=== PATIENT | female | born 1950 | race Caucasian/White ===

== ENCOUNTER 2017-12-23 12:46 | Inpatient (IN) ==
--- NOTE | 2017-12-23 14:37 | XRay Report ---
INDICATION: Altered level of consciousness. Weakness. TECHNIQUE: AP chest x-ray, portable semiupright COMPARISON: 06/15/2016 FINDINGS: Lungs are negative. No focal pulmonary parenchymal infiltrate or mass. Heart size and vascularity are normal. No pulmonary edema. No pulmonary congestion. Kimber and mediastinum are negative. No pleural fluid. IMPRESSION: Negative AP chest x-ray Interpreted and Authenticated by: Jeremías Sheth 12/23/17
--- NOTE | 2017-12-23 14:40 | Cat Scan Report ---
CLINICAL INFORMATION: Decreased level of consciousness COMPARISON: 07/24/2011 TECHNIQUE: Axial noncontrast-enhanced images through the brain. FINDINGS: No acute intracranial hemorrhage. No subdural hematoma. No subarachnoid hemorrhage. No intra-axial hemorrhage. No focal intra-axial attenuation abnormalities. No localized mass effect. No midline shift. Brain volume is within normal limits. Brainstem and cerebellum are negative. No extra-axial abnormality. Basilar cisterns are normal. No hyperdense middle cerebral artery sign. No calvarial fracture. No lytic lesion. Temporal bones are negative IMPRESSION: Negative noncontrast enhanced brain CT scan. The exam was performed using radiation dose optimization techniques including, but not limited to, automated exposure control, adjustment of the mA and/or kV according to patient size and use of iterative reconstruction technique. Interpreted and Authenticated by: Jeremías Sheth 12/23/17
[2017-12-23 15:00] LABS: Basophils # (Auto) 0.1 K/mcL (0.0-0.3); Basophils % (Auto) 0.6 % (0.0-2.0); Eosinophils # (Auto) 0.7 K/mcL (0.0-0.7); Eosinophils % (Auto) 5.3 % (0.0-7.0); Granulocytes % (Auto) 66.5 % (38.0-78.0); Lymphocytes # (Auto) 2.4 K/mcL (1.5-4.8); Lymphocytes % (Auto) 19.6 % (15.5-49.0); Mean Cell Volume 91.8 fL (80.0-100.0); Mean Corpuscular HGB Conc 33.2 g/dL (31.0-36.0); Mean Corpuscular Hemoglobin 30.5 pg (26.0-34.0); Platelet Count 177 K/mcL (140-440); RBC 4.36 M/mcL (4.00-5.20); Red Cell Distribution Width 13.8 % (11.5-14.5)
[2017-12-23 15:15] LABS: ALT/SGPT 10 U/l (0-40); Albumin/Globulin Ratio 1.3 (1.0-2.3); Alkaline Phosphatase 177 U/L (39-117); Blood Urea Nitrogen 32 mg/dl (8-23)
[2017-12-23] MEDS: 0.9 % SODIUM CHLORIDE 1,000 ML IV SCH ×2 (15:35→23:38)
[2017-12-23 15:40] LABS: Appearance,Urine HAZY; Bacteria,Urine FEW /hpf (0); Bilirubin,Urine NEG (NEG); Color,Urine YELLOW; Glucose,Urine (UA) NEGATIVE (NEG); Leukocyte Esterase,Urine 2+ (MODERATE) /uL (NEG); Mucus,Urine MOD /hpf (0); PH,Urine 8.5 (5.0-9.0); Protein,Urine 100 mg/dL (NEG); Specific Gravity,Urine 1.017 (1.000-1.035); Urine Amorphous Crystals MOD /hpf (0); Urine Blood 1+ (SMALL) mg/dL (<0.03); Urine RBC 2 /hpf (0-1); Urine Squamous Epithelial Cell 1 /hpf (0-4); Urine WBC 10 /hpf (0-4); Urobilinogen,Urine NEG (NEG)
[2017-12-23] MEDS ORDERED: CIPROFLOXACIN 400 MG/200 ML BAG IV ONE (15:54)
[2017-12-23] MEDS ORDERED: ERTAPENEM 1 GM in 0.9 % SODIUM CHLORIDE 50 ML IV ONE (16:18)
[2017-12-23] MEDS ORDERED: ERTAPENEM 0.5 GM in 0.9 % SODIUM CHLORIDE 50 ML IV ONE (16:27)
[2017-12-23] MEDS ORDERED: HYDROcodone/APAP 5/325MG TABLET PO ONE (16:30)
--- NOTE | 2017-12-23 17:03 | Internal Med History&Physical ---
Medical - H&P: HPI Patient information: Note initiated : 12/23/17 at 5:00 pm Service Date, if different from initiated Date: [] Patient: Anita Casas a 67 y/o F admitted on for Not Feeling Well. Chief Complaint: [] History of present illness: Ms. 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 She felt very weak in her legs although is able to walk. Also complains of headache fever chills nausea she has some sharp abdominal wall shooting pain throughout her abdomen. Her suprapubic catheter site was examined in the ER with some purulence around his replaced. She has chronic shortness of breath denies new cough. Denies diarrhea but has some constipation. Did have some in her symptoms in the ED. Review of systems: Review of Systems: Reports headache fever chills nausea sharp abdominal pain. denies vomiting/chest pain/cough/dyspnea/diarrhea. Otherwise see above. Medical - H&P: PMH Surgical history: Past Surgical History (Last Reviewed 12/03/17 @ 16:06 by ANAM Wynn) History of resection of rectum (Chronic) History of repair of right rotator cuff (Chronic) History of open reduction and internal fixation (ORIF) procedure (Chronic) History of knee replacement procedure of right knee (Chronic) History of knee replacement procedure of left knee (Chronic) History of hysterectomy (Chronic) History of repair of inguinal hernia (Chronic) History of hernia surgery (Chronic) History of surgical removal of ganglion cyst (Chronic) History of biopsy (Chronic) History of appendectomy (Chronic) History of surgery (Acute) History of cholecystectomy (Chronic) History of suprapubic catheter (Chronic 07/28/15) Family History (Last Reviewed 12/03/17 @ 16:06 by ANAM Wynn) Father Family history of malignant neoplasm Mother Essential hypertension Cerebrovascular accident Unknown Lymphoma Multiple sclerosis Osteoarthritis Social History Patient quit smoking 6 years ago Denies alcohol use 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5 mg base)/3 mL nebulization soln Levothyroxine Sodium [Synthroid] 175 mcg PO QDAY 05/28/16 12/03/17 History oxyCODONE/APAP [Percocet 5-325 mg] 1 tab PO Q4H PRN #30 tab 06/01/16 12/03/17 Rx calcium citrate-vitamin D3 315 1 tab PO TID 30 Days #90 tab 08/17/16 12/03/17 Rx mg-200 unit tablet aspirin 81 mg tablet,delayed 81 mg PO QDAY 09/27/16 12/03/17 History release albuterol sulfate HFA 90 2 puff INHALATION Q6H 03/27/17 12/03/17 History mcg/actuation aerosol inhaler potassium chloride ER 10 mEq 10 meq PO QDAY #30 cap 04/16/17 12/03/17 Rx capsule,extended release latex free extension tubing 1 appful MISC PRN 06/21/17 12/03/17 History fluticasone 200 mcg-vilanterol 25 1 inh INHALATION QDAY #180 each 08/14/1712/03 Rx mcg/dose powder for inhalation umeclidinium 62.5 mcg/actuation 1 inh INHALATION QDAY #90 each 08/14/17 Rx blister powder for inhalation vitamin B complex-vitamin C-folic 1 tab-cap PO QDAY #30 tab 10/07/17 12/03/17 Rx acid 0.8 mg tablet furosemide 40 mg tablet 40 mg PO QDAY #90 tab 10/21/17 12/03/17 Rx baclofen 20 mg tablet 10 mg PO TID 11/05/17 12/03/17 History Ondansetron HCl [Zofran ODT] 4 mg SL Q4-6HP PRN #14 tab 12/18/17 Rx omeprazole 40 mg capsule,delayed 40 mg PO DAILY #30 cap 12/18/17 Rx release ondansetron HCl 4 mg tablet 4 mg PO TID PRN 10 Days #30 tab 12/18/17 Rx Allergies Allergy/AdvReac Type Severity Reaction Status Date / Time cephalexin Allergy Unknown Rash Verified 12/23/17 13:02 Cephalosporins Allergy Unknown Rash Verified 12/18/17 11:17 Sulfa (Sulfonamide Allergy Unknown Rash Verified 12/18/17 11:17 Antibiotics) Medical - H&P: Exam - Constitutional Vitals: Temp Pulse Resp BP Pulse Ox 98.2 F 84 31 H 100/60 100 12/23/17 12:50 12/23/17 16:31 12/23/17 16:31 12/23/17 16:31 12/23/17 16:31 Exam: General: Alert, Awake, No acute Distress HEENT: EOMI, normocephalic atraumatic CV: RRR, No murmurs, normal s1/s2 Pulm: Clear b/l, no wheezing/rhonchi/rales Abd: soft, nontender, +BS x4, obese Ext: no clubbing/cyanosis/edema Neuro: Alert, no focal deficits, moves all extremities Skin: warm/dry Medical - H&P: Reslt - Labs CBC & Chem 7: 12/23/17 14:15 12/23/17 14:15 Labs: Short CBC 12/23/17 Range/Units 14:15 WBC 12.4 H (4.5-11.0) K/mcL Hgb 13.3 (12.0-15.0) g/dL Hct 40.0 (36.0-48.0) % Plt Count 177 (140-440) K/mcL BMP 12/23/17 14:15 Sodium 140 Potassium 5.1 Chloride 103 Carbon Dioxide 20 L BUN 32 H Creatinine 2.8 H Glucose 80 Calcium 9.3 Liver Function 12/23/17 Range/Units 14:15 Total Bilirubin 0.5 (0.0-1.0) mg/dL AST 17 (0-37) U/l ALT 10 (0-40) U/l Alkaline Phosphatase 177 H (39-117) U/L Albumin 4.0 (3.2-5.2) gm/dL Urine 12/23/17 Range/Units 14:37 Urine Color Yellow Urine Appearance Hazy Urine pH 8.5 (5.0-9.0) Ur Specific [place] 1.017 (1.000-1.035) Urine Protein 100 A (NEG) mg/dL Urine Glucose (UA) Negative (NEG) mg/dL Medical - H&P: A/P - Narrative A/P Narrative: A: *UTI, complicated by suprapubic catheter: Multidrug-resistant organism. *Metabolic encephalopathy: Secondary to above *End-stage renal disease: *Chronic anemia *Morbid obesity *COPD(2 L at night and occasionally as needed during the day): *Hypertension: *Hypothyroidism *Anxiety *suprapubic catheter chronic, neurogenic bladder: P: -IV antibiotics -Pending blood and urine cultures -Dr. Seay following -Suprapubic catheter replaced -Continue home medications -ppx: Heparin
--- NOTE | 2017-12-23 17:48 | Cat Scan Report ---
CLINICAL INFORMATION: Abdominal pain COMPARISON: Previous CT scan dated 02/19/[address] [facility] TECHNIQUE: Axial images were obtained through the abdomen and pelvis. Sagittally and coronally reformatted images. FINDINGS: Lung bases are negative. No parenchymal infiltrate or mass. No pleural fluid. No pericardial fluid. Distal esophagus is dilated and contains fluid and semisolid material. Findings may be secondary to achalasia. Liver is negative. No focal intrahepatic abnormality. No dilated bile ducts. Gallbladder is not identified. Spleen is negative. No splenomegaly. Pancreas is negative. No pancreatic mass. No evidence for pancreatitis. Adrenal glands are negative. Kidneys are atrophic bilaterally. No hydronephrosis. No solid or cystic mass. There is distal descending and sigmoid colon diverticulosis. No evidence for diverticulitis. No colonic mass. No findings of appendicitis. Rectal prolapse is possible. The caudal aspects of the perineum are not imaged There is a suprapubic bladder catheter. Uterus is not present. No adnexal mass. No free intraperitoneal fluid. No localized fluid collections. No pneumoperitoneum. There is a small umbilical hernia containing only fat. Hernia defect measures 2.2 cm. There is a right para midline abdominal wall hernia. This hernia defect measures 3.1 x 3.5 cm. There is small bowel within this hernia defect. There is an anastomotic suture line within the small bowel in the hernia defect. No mechanical small bowel obstruction. There is no fluid within the hernia defect. There is no extraluminal air. Bowel ischemia, however, is not excluded. There is a left lumbar hernia. There is colon protruding into this hernia but there is no obstruction. The right para umbilical anterior abdominal wall hernia is new since 02/19/2016. There is calcification of the abdominal aorta. No abdominal aortic aneurysm. Multilevel degenerative disc disease in the lumbar spine. There is severe facet arthropathy at L4-5 with anterolisthesis. No sacral fracture. No pelvic fracture. Hips are negative. IMPRESSION: 1. Dilated esophagus suggests achalasia 2. Left lumbar hernia and small umbilical hernia, unchanged. There is a right paraumbilical hernia containing small bowel with an anastomosis. There is no bowel obstruction but ischemia is not excluded. 3. Diverticulosis without evidence for diverticulitis 4. Suprapubic bladder catheter. 5. Degenerative disc disease and facet arthropathy. The exam was performed using radiation dose optimization techniques including, but not limited to, automated exposure control, adjustment of the mA and/or kV according to patient size and use of iterative reconstruction technique. Interpreted and Authenticated by: Jeremías Sheth 12/23/17
--- NOTE | 2017-12-23 18:21 | Emergency Department Note ---
General Adult HPI - General Chief complaint: Dizziness Stated complaint: not feeling well Time Seen by Provider: 12/23/17 13:28 Source: patient Mode of arrival: ambulatory Limitations: physical limitation - History of Present Illness HPI Narrative: 67-year-old female presents with just not feeling right. At about 11:00 she had a hard time thinking and getting her words out. States her mind is not right. She is tearful. Denies any thoughts of harming herself but states she is just frustrated because she does not feel well. Describes body aches for the last 2 days. Positive chills, unknown fever. Positive nausea. No vomiting or diarrhea. Does notice purulent drainage from suprapubic catheter. She was diagnosed with UTI couple days ago and has had 1 dose of Invanz yesterday. - Related Data Home Medications Medication Instructions Recorded Confirmed Montelukast [Singular] 10 mg PO ONCE 04/12/15 12/03/17 lactobacillus combination no.8 3 3,000 mmu cells PO QDAY 05/25/15 12/03/17 billion cell capsule alprazolam 0.5 mg tablet 0.5 mg PO .qd tab 08/23/15 12/03/17 Levothyroxine Sodium [Synthroid] 175 mcg PO QDAY 05/28/16 12/03/17 aspirin 81 mg tablet,delayed 81 mg PO QDAY 09/27/16 12/03/17 release albuterol sulfate HFA 90 2 puff INHALATION Q6H 03/27/17 12/03/17 mcg/actuation aerosol inhaler latex free extension tubing 1 appful MISC PRN 06/21/17 12/03/17 baclofen 20 mg tablet 10 mg PO TID 11/05/17 12/03/17 Previous Rx's Medication Instructions Recorded cholecalciferol (vitamin D3) 2,000 2,000 unit PO QDAY #90 cap 08/02/15 unit capsule midodrine 5 mg tablet 2.5 mg PO TID PRN 30 Days #45 tab 05/08/16 ipratropium-albuterol 0.5 mg-3 3 ml INHALATION Q4H #120 ml 05/23/16 mg(2.5 mg base)/3 mL nebulization soln oxyCODONE/APAP [Percocet 5-325 mg] 1 tab PO Q4H PRN #30 tab 06/01/16 calcium citrate-vitamin D3 315 1 tab PO TID 30 Days #90 tab 08/17/16 mg-200 unit tablet potassium chloride ER 10 mEq 10 meq PO QDAY #30 cap 04/16/17 capsule,extended release fluticasone 200 mcg-vilanterol 25 1 inh INHALATION QDAY #180 each 08/14/17 mcg/dose powder for inhalation umeclidinium 62.5 mcg/actuation 1 inh INHALATION QDAY #90 each 08/14/17 blister powder for inhalation vitamin B complex-vitamin C-folic 1 tab-cap PO QDAY #30 tab 10/07/17 acid 0.8 mg tablet furosemide 40 mg tablet 40 mg PO QDAY #90 tab 10/21/17 Ondansetron HCl [Zofran ODT] 4 mg SL Q4-6HP PRN #14 tab 12/18/17 omeprazole 40 mg capsule,delayed 40 mg PO DAILY #30 cap 12/18/17 release ondansetron HCl 4 mg tablet 4 mg PO TID PRN 10 Days #30 tab 12/18/17 Allergies Allergy/AdvReac Type Severity Reaction Status Date / Time cephalexin Allergy Unknown Rash Verified 12/23/17 13:02 Cephalosporins Allergy Unknown Rash Verified 12/18/17 11:17 Sulfa (Sulfonamide Allergy Unknown Rash Verified 12/18/17 11:17 Antibiotics) Review of Systems All systems ED: reviewed and negative except as stated. 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) Weakness (Chronic) Osteopetrosis (Chronic) AV fistula (Chronic) Dependence on renal dialysis (Chronic) ESRD (end stage renal disease) (Chronic) DM renal manif type II (Chronic) Hypertension (Chronic) Diarrhea (Chronic) SOB (shortness of breath) (Chronic) Acute exacerbation of chronic obstructive airways disease (Acute) Community acquired pneumonia (Acute) Atypical chest pain (Acute) Hyperparathyroidism due to renal insufficiency (Chronic) CKD (chronic kidney disease), stage V (Chronic) On renal disease diet (Chronic) Cystitis (Chronic) Complicated UTI (urinary tract infection) (Chronic) Secondary hyperparathyroidism of renal origin (Chronic) Asthma (Chronic) Lumbar spinal stenosis (Chronic) Sacral foraminal stenosis (Chronic) Hernia, hiatal (Chronic) Esophageal stricture (Chronic) Adult onset hypothyroidism (Chronic) UTI (urinary tract infection) (Chronic) COPD exacerbation (Chronic) Nausea & vomiting (Chronic) Acute renal failure (Chronic) Dehydration (Chronic) UTI (urinary tract infection) (Chronic) COPD exacerbation (Chronic) Wrist fracture, closed (Chronic) Urinary incontinence (Chronic) Trigonitis (Chronic 04/16/13) Localized superficial swelling, mass, or lump (Chronic 08/16/14) Spinal stenosis of lumbar region without neurogenic claudication (Chronic) Shoulder pain (Chronic 08/16/14) Shoulder pain (Chronic 06/02/14) Rectal prolapse (Chronic) Peripheral vascular disease (Chronic) Osteoarthritis (Chronic) Obstructive chronic bronchitis with acute bronchitis (Chronic 05/20/14) Postmenopausal related mood disorder (Chronic) Hypothyroidism (acquired) (Chronic) Hypertension, essential (Chronic 05/20/14) Gastroenteritis (Chronic 05/20/14) Dysphagia (Chronic) Diabetes mellitus, type II (Chronic) Cough (Chronic) History of colonic polyps (Chronic) Chronic obstructive pulmonary disease (Chronic) Chronic low back pain (Chronic 05/20/14) Cellulitis, leg (Chronic 08/16/14) Bladder pain (Chronic 03/26/13) Fracture of ankle, closed (Chronic) Anemia (Chronic 06/02/14) Anemia (Chronic 08/16/14) Past Surgical History (Last Reviewed 12/03/17 @ 16:06 by ANAM Wynn) History of resection of rectum (Chronic) History of repair of right rotator cuff (Chronic) History of open reduction and internal fixation (ORIF) procedure (Chronic) History of knee replacement procedure of right knee (Chronic) History of knee replacement procedure of left knee (Chronic) History of hysterectomy (Chronic) History of repair of inguinal hernia (Chronic) History of hernia surgery (Chronic) History of surgical removal of ganglion cyst (Chronic) History of biopsy (Chronic) History of appendectomy (Chronic) History of surgery (Acute) History of cholecystectomy (Chronic) History of suprapubic catheter (Chronic 07/28/15) Medical history: Reports: COPD, dementia, hypertension, renal disease (is a diALYSIS PATIENT) 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 Absent: conjunctival injection ENT: normal exam, normal oropharynx, mucous membranes moist, TM's normal bilaterally, normal external ear exam Neck: Present: normal inspection, trachea midline. Absent: tenderness, lymphadenopathy Chest: Present: normal inspection, symmetric chest wall rise Respiratory: Present: wheezes (Faint expiratory wheeze in the bases bilaterally otherwise clear throughout). Absent: respiratory distress, accessory muscle use Cardiovascular: Present: regular rate, normal heart sounds Abdominal: Present: soft, normal bowel sounds, other (Suprapubic catheter in place but was pulled out when patient pulled her depends down and purulent drainage expelled from the suprapubic site.). Absent: distention, tenderness External: Present: other (Please see urinalysis) Extremities: Present: normal inspection, pedal edema (1+) Neurological: Present: alert, oriented X3 Psychiatric: Present: depressed (tearful "I just don't feel good"). Absent: suicidal ideation Skin: Present: warm, dry, intact, normal color Course Course Narrative: @ 1630 Dr. Seay her seeing pt At 1745 I did speak with hospitalist, Dr. Moreno who agrees to see the patient. Vital Signs Temperature 98.2 F 12/23/17 12:50 Respiratory Rate 20 12/23/17 12:50 Blood Pressure 119/62 12/23/17 12:50 Pulse Oximetry (%) 96 12/23/17 12:50 Temperature 98.2 F 12/23/17 12:50 Pulse Rate 63 12/23/17 17:46 Respiratory Rate 25 H 12/23/17 17:46 Blood Pressure 122/79 12/23/17 17:46 Pulse Oximetry (%) 83 L 12/23/17 17:46 Medical Decision Making - Lab Data Lab results reviewed: Yes I reviewed the patient's lab results. Result diagrams: 12/23/17 14:15 12/23/17 14:15 Lab Results 12/23/17 12/23/17 12/23/17 Range/Units 14:15 14:15 14:15 WBC 12.4 H (4.5-11.0) K/mcL RBC 4.36 (4.00-5.20) M/mcL Hgb 13.3 (12.0-15.0) g/dL Hct 40.0 (36.0-48.0) % MCV 91.8 (80.0-100.0) fL MCH 30.5 (26.0-34.0) pg MCHC 33.2 (31.0-36.0) g/dL RDW 13.8 (11.5-14.5) % Plt Count 177 (140-440) K/mcL MPV 10.2 (7.4-10.4) fL Gran % 66.5 (38.0-78.0) % Lymph % (Auto) 19.6 (15.5-49.0) % Towns % (Auto) 8.0 (1.0-12.0) % Eos % (Auto) 5.3 (0.0-7.0) % Baso % (Auto) 0.6 (0.0-2.0) % Gran # 8.2 H (1.8-8.0) K/mcL Lymph # (Auto) 2.4 (1.5-4.8) K/mcL [place] # (Auto) 1.0 H (0.1-0.9) K/mcL Eos # (Auto) 0.7 (0.0-0.7) K/mcL Baso # (Auto) 0.1 (0.0-0.3) K/mcL VBG Lactic Acid 0.7 (0.5-2.2) mmol/L Sodium 140 (133-145) mmol/L Potassium 5.1 (3.3-5.1) mmol/L Chloride 103 (96-108) mmol/L Carbon Dioxide 20 L (22-30) mmol/L Anion Gap 17.0 H (8-16) BUN 32 H (8-23) mg/dl Creatinine 2.8 H (0.6-1.1) mg/dl GFR Calculation 17 Glucose 80 (70-105) mg/dL Calcium 9.3 (8.6-10.4) mg/dl Total Bilirubin 0.5 (0.0-1.0) mg/dL AST 17 (0-37) U/l ALT 10 (0-40) U/l Alkaline Phosphatase 177 H (39-117) U/L Total Protein 7.2 (5.9-8.4) gm/dL Albumin 4.0 (3.2-5.2) gm/dL Globulin 3.2 (2.2-3.7) gm/dL Albumin/Globulin Ratio 1.3 (1.0-2.3) Urine Color Urine Appearance Urine pH (5.0-9.0) Ur Specific [place] (1.000-1.035) Urine Protein (NEG) mg/dL Urine Glucose (UA) (NEG) mg/dL Urine Ketones (NEG) mg/dL Urine Occult Blood (<0.03) mg/dL Urine Nitrate (NEG) Urine Bilirubin (NEG) mg/dL Urine Urobilinogen (NEG) mg/dL Ur Leukocyte Esterase (NEG) /uL Urine RBC (0-1) /hpf Urine WBC (0-4) /hpf Ur Squamous Epith Cells (0-4) /hpf Amorphous Crystals (0) /hpf Urine Bacteria (0) /hpf Urine Mucus (0) /hpf Ur Culture Indicated? 12/23/17 Range/Units 14:37 WBC (4.5-11.0) K/mcL RBC (4.00-5.20) M/mcL Hgb (12.0-15.0) g/dL Hct (36.0-48.0) % MCV (80.0-100.0) fL MCH (26.0-34.0) pg MCHC (31.0-36.0) g/dL RDW (11.5-14.5) % Plt Count (140-440) K/mcL MPV (7.4-10.4) fL Gran % (38.0-78.0) % Lymph % (Auto) (15.5-49.0) % [place] % (Auto) (1.0-12.0) % Eos % (Auto) (0.0-7.0) % Baso % (Auto) (0.0-2.0) % Gran # (1.8-8.0) K/mcL Lymph # (Auto) (1.5-4.8) K/mcL [place] # (Auto) (0.1-0.9) K/mcL Eos # (Auto) (0.0-0.7) K/mcL Baso # (Auto) (0.0-0.3) K/mcL VBG Lactic Acid (0.5-2.2) mmol/L Sodium (133-145) mmol/L Potassium (3.3-5.1) mmol/L Chloride (96-108) mmol/L Carbon Dioxide (22-30) mmol/L Anion Gap (8-16) BUN (8-23) mg/dl Creatinine (0.6-1.1) mg/dl GFR Calculation Glucose (70-105) mg/dL Calcium (8.6-10.4) mg/dl Total Bilirubin (0.0-1.0) mg/dL AST (0-37) U/l ALT (0-40) U/l Alkaline Phosphatase (39-117) U/L Total Protein (5.9-8.4) gm/dL Albumin (3.2-5.2) gm/dL Globulin (2.2-3.7) gm/dL Albumin/Globulin Ratio (1.0-2.3) Urine Color Yellow Urine Appearance Hazy Urine pH 8.5 (5.0-9.0) Ur Specific [place] 1.017 (1.000-1.035) Urine Protein 100 A (NEG) mg/dL Urine Glucose (UA) Negative (NEG) mg/dL Urine Ketones Neg (NEG) mg/dL Urine Occult Blood 1+ (small) (<0.03) mg/dL Urine Nitrate Pos A (NEG) Urine Bilirubin Neg (NEG) mg/dL Urine Urobilinogen Neg (NEG) mg/dL Ur Leukocyte Esterase 2+ (moderate) (NEG) /uL Urine RBC 2 H (0-1) /hpf Urine WBC 10 H (0-4) /hpf Ur Squamous Epith Cells 1 (0-4) /hpf Amorphous Crystals Mod A (0) /hpf Urine Bacteria Few A (0) /hpf Urine Mucus Mod (0) /hpf Ur Culture Indicated? Yes - Radiology Data Radiology results reviewed: Yes I reviewed the patient's radiology results. 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
[2017-12-23] MEDS ORDERED: ONDANSETRON 4 MG/2 ML VIAL IV PRN (19:35)
[2017-12-23] MEDS ORDERED: ACETAMINOPHEN 325 MG TABLET PO PRN (19:35)
[2017-12-23] MEDS: IPRATROPIUM/ALBUTEROL 3 ML AMPUL.NEB NEB SCH (19:47)
[2017-12-23] MEDS ORDERED: IPRATROPIUM/ALBUTEROL 3 ML AMPUL.NEB NEB ONE (19:48)
--- NOTE | 2017-12-23 20:20 | Nephrology Consult Note ---
History of Present Illness - Reason for Consult Patient information: Note initiated : 12/23/17 at 8:17 pm Service Date, if different from initiated Date: [] Patient: Anita Casas 67 y/o F admitted on 12/23/17 for Not Feeling Well. 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 She then started feeling better. Her urine culture showed multi drug resistant UTI and she was started on ertapenem for this yesterday. 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 (neurogenic bladder) secondary hyperparathyroidism COPD rectal prolapse failed multiple surgeries h/o MSSA PNA/resp failure hypothyroidism lumbar spinal stenosis esophageal stricture recurrent UTI Past surgical history: History of cholecystectomy Chronic History of surgery Acute History of suprapubic catheter Chronic 07/28/15 History of resection of rectum Chronic History of repair of right rotator cuff Chronic History of open reduction and internal fixation (ORIF) procedure Chronic History of knee replacement procedure of right knee Chronic History of knee replacement procedure of left knee Chronic History of hysterectomy Chronic History of repair of inguinal hernia Chronic History of hernia surgery Chronic History of surgical removal of ganglion cyst Chronic History of biopsy Chronic History of appendectom Past family history: not pertinent Past social history: Lives alone, has daughter and son retired past smoker and used alcohol in the past, no current addictions Medications and Allergies Home Medications Medication Instructions Recorded Confirmed Type RX: Montelukast [Singular] 10 mg PO ONCE 04/12/15 12/03/17 History lactobacillus combination no.8 3 3,000 mmu cells PO QDAY 05/25/15 12/03/17 History billion cell capsule cholecalciferol (vitamin D3) 2,000 2,000 unit PO QDAY #90 cap 08/02/15 12/03/17 Rx unit capsule alprazolam 0.5 mg tablet 0.5 mg PO .qd tab 08/23/15 12/03/17 History midodrine 5 mg tablet 2.5 mg PO TID PRN 30 Days #45 tab 05/08/16 12/03/17 Rx ipratropium-albuterol 0.5 mg-3 3 ml INHALATION Q4H #120 ml 05/23/16 12/03/17 Rx mg(2.5 mg base)/3 mL nebulization soln RX: Levothyroxine Sodium 175 mcg PO QDAY 05/28/16 12/03/17 History [Synthroid] oxyCODONE/APAP [Percocet 5-325 mg] 1 tab PO Q4H PRN #30 tab 06/01/16 12/03/17 Rx calcium citrate-vitamin D3 315 1 tab PO TID 30 Days #90 tab 08/17/16 12/03/17 Rx mg-200 unit tablet aspirin 81 mg tablet,delayed 81 mg PO QDAY 09/27/16 12/03/17 History release albuterol sulfate HFA 90 2 puff INHALATION Q6H 03/27/17 12/23/17 History mcg/actuation aerosol inhaler potassium chloride ER 10 mEq 10 meq PO QDAY #30 cap 04/16/17 12/03/17 Rx capsule,extended release latex free extension tubing 1 appful MISC PRN 06/21/17 12/03/17 History fluticasone 200 mcg-vilanterol 25 1 inh INHALATION QDAY #180 each 08/14/1712/03 Rx mcg/dose powder for inhalation umeclidinium 62.5 mcg/actuation 1 inh INHALATION QDAY #90 each 08/14/17 Rx blister powder for inhalation vitamin B complex-vitamin C-folic 1 tab-cap PO QDAY #30 tab 10/07/17 12/03/17 Rx acid 0.8 mg tablet furosemide 40 mg tablet 40 mg PO QDAY #90 tab 10/21/17 12/03/17 Rx baclofen 20 mg tablet 10 mg PO TID 11/05/17 12/03/17 History omeprazole 40 mg capsule,delayed 40 mg PO DAILY #30 cap 12/18/17 Rx release ondansetron HCl 4 mg tablet 4 mg PO TID PRN 10 Days #30 tab 12/18/17 Rx Allergies Allergy/AdvReac Type Severity Reaction Status Date / Time cephalexin Allergy Intermediate Rash Verified 12/23/17 19:50 Cephalosporins Allergy Intermediate Rash Verified 12/23/17 19:50 Sulfa (Sulfonamide Allergy Intermediate Rash Verified 12/23/17 19:50 Antibiotics) Exam - Vital Signs Vital signs: Temp Pulse Resp BP Pulse Ox 98.2 F 87 20 116/78 95 12/23/17 19:34 12/23/17 20:02 12/23/17 20:02 12/23/17 19:34 12/23/17 20:02 - General Appearance General appearance: appears started age, chronically ill EENT: mucous membranes moist Neck: no JVD Respiratory: wheezing Cardiology: no rub, no edema, normal S1, normal S2 Gastrointestinal: no tenderness (cystostomy site with purulent discharge ), no guarding Integumentary: warm and dry Neurologic: alert and oriented x3 (but finds difficulty answering questions) Musculoskeletal: no cyanosis, no clubbing Psychiatric: mood/affect appropriate Results - Lab Results 12/23/17 14:15 12/23/17 14:15 Most recent lab results Calcium 9.3 mg/dl (8.6-10.4) 12/23/17 14:15 Assessment and Plan (1) Dependence on renal dialysis patient dialysis twice a week, due for dialysis today, labs stable, no e/o fluid excess, no urgent need for dialysis UTI with purulent discharge from supra pubic cath site, obtain abdominal imaging confusion ? from septic encephalopathy, consider admission for IV antibiotics, and monitoring of the patient will need urology opinion and supra pubic cath needs to be replaced, discussed with ER physician recurrent nausea, vomiting, CT abdomen with ? achalasia, will obtain GI opinion as outpt Will follow along appreciate hospital help in managing this patient Status: Chronic (2) Complicated UTI (urinary tract infection) Status: Chronic
[2017-12-23 21:10] LABS: Basophils # (Auto) 0.1 K/mcL (0.0-0.3); Basophils % (Auto) 0.9 % (0.0-2.0); Eosinophils # (Auto) 0.6 K/mcL (0.0-0.7); Eosinophils % (Auto) 5.3 % (0.0-7.0); Granulocytes % (Auto) 61.3 % (38.0-78.0); Lymphocytes # (Auto) 2.7 K/mcL (1.5-4.8); Lymphocytes % (Auto) 24.7 % (15.5-49.0); Mean Corpuscular HGB Conc 33.6 g/dL (31.0-36.0); Mean Corpuscular Hemoglobin 31.2 pg (26.0-34.0); Monocytes # (Auto) 0.9 K/mcL (0.1-0.9); Monocytes % (Auto) 7.8 % (1.0-12.0); Platelet Count 191 K/mcL (140-440); RBC 4.08 M/mcL (4.00-5.20); Red Cell Distribution Width 14.1 % (11.5-14.5)
[2017-12-23] MEDS: HEPARIN 5,000 UNIT/ML VIAL SQ SCH (21:57)
[2017-12-23] MEDS: FAMOTIDINE 20 MG TABLET PO SCH (21:58)
[2017-12-23] MEDS ORDERED: MIDODRINE 5 MG TABLET PO PRN (22:18)
[2017-12-23] MEDS ORDERED: ALBUTEROL SULFATE 1 PUFF INHALER INH PRN (22:30)
[2017-12-23] MEDS ORDERED: [UNRECOGNIZED DRUG - OTHER] MISC SCH (22:30)
[2017-12-23] MEDS: BACLOFEN 10 MG TABLET PO SCH (23:23)
[2017-12-23] MEDS ORDERED: HYDROCODONE/APAP 7.5/325MG TABLET PO ONE (23:26)
[2017-12-23] MEDS: ERTAPENEM 1 GM in 0.9 % SODIUM CHLORIDE 50 ML IV SCH (23:29)
[2017-12-24] MEDS: 0.9 % SODIUM CHLORIDE 10 ML SYRINGE IV SCH ×4 (00:37→20:36)
[2017-12-24] MEDS: ONDANSETRON ODT 4 MG TABLET PO PRN ×3 (02:03→20:34)
[2017-12-24] MEDS: IPRATROPIUM/ALBUTEROL 3 ML AMPUL.NEB NEB SCH ×8 (02:03→22:50)
[2017-12-24 05:48] LABS: ALT/SGPT 8 U/l (0-40); Albumin 3.3 gm/dL (3.2-5.2); Albumin/Globulin Ratio 1.1 (1.0-2.3); Alkaline Phosphatase 154 U/L (39-117); Bilirubin,Direct < 0.2 mg/dL (0.0-0.3); Blood Urea Nitrogen 31 mg/dl (8-23); Gamma Glutamyl Transpeptidase 38 U/L (5-36); Uric Acid 6.4 mg/dL (2.5-8.0)
--- NOTE | 2017-12-24 07:14 | Internal Med Progress Note ---
Medical - PN: Subj Patient information: Note initiated : 12/24/17 at 7:12 am Service Date, if different from initiated Date: [] Patient: Anita Casas 67 y/o F admitted on 12/23/17 for Not Feeling Well. Chief Complaint: [] Interval history: Ms. Dillard is a 81 year old F Who was discharged from the hospital little over week ago for acute renal failure, UTI, sepsis, microscopic colitis. She presents back today for fever, she has had some body aches, diarrhea which was worse last Saturday but that has improved some. She has no crampy abdominal pain with bloating she has chronic shortness of breath and coughing. In the ER she was noted to have a fever of 102 denies any dysuria no productive cough. There was some report of some shortness of breath but when speaking with her she states this is chronic although an ER BNP was elevated above normal. Chest x-ray with some with pulmonary congestion. 12/24 - Constitutional Vitals: Vital Signs Temp Pulse Resp BP Pulse Ox 97.6 F 69 20 116/73 94 12/24/17 02:49 12/24/17 02:49 12/24/17 02:49 12/24/17 02:49 12/24/17 02:49 Period Temp Pulse Resp BP Sys/Santizo Pulse Ox Last 24 Hr 97.6 F-98.2 F 47-98 14-31 96-133/34-89 79-100 Intake and Output 12/23/17 12/24/17 12/24/17 21:59 05:59 13:59 Intake Total 1050 / 1050 275 / 275 Output Total 525 / 525 Balance 1050 / 1050 -250 / -250 Weight 110.223 kg Intake & Output: Intake & Output 12/23/17 12/24/17 12/24/17 21:59 05:59 13:59 Intake Total 1050 / 1050 275 / 275 Output Total 525 / 525 Balance 1050 / 1050 -250 / -250 Weight 110.223 kg Intake: IV 1050 / 1050 25 / 25 Sodium Chloride 0.9% 1,000 ml @ 1000 / 1000 500 mls/hr IV .Q2H [facility] Rx#: [id number] INVanz 1 GM In Sodium Chloride 50 / 50 25 / 25 0.9% 50 ml @ 100 mls/hr IV Q24H [facility] Rx#:[id number] Oral 250 / 250 Output: Urine Catheter Amount 525 / 525 Other: Urine Appearance Clear Suprapubic Clear Urine Color Bright Yellow Suprapubic Bright Yellow Stool Size Small Stool Color Brown Stool Consistency Formed # of times incontinent of 1 Bowels Exam: General: Alert, Awake, No acute Distress HEENT: Normocephalic atraumatic, EOMI, mild JVD CV: RRR, No murmurs, normal s1/s2 Pulm: Clear b/l, no wheezing/rhonchi/rales Abd: soft, nontender, +BS x4, obese Ext: no clubbing/cyanosis, 1+ bilateral lower extremity edema Neuro: Alert, no focal deficits, moves all extremities Skin: warm/dry Medical - PN: Obj Da - Labs CBC & Chem 7: 12/23/17 19:35 12/24/17 04:28 Labs: Abnormal Lab Results 12/24/17 12/23/17 12/23/17 04:28 19:35 14:37 WBC 11.1 H Gran # [place] # (Auto) Potassium 5.2 H Chloride 111 H Carbon Dioxide 18 L Anion Gap BUN 31 H Creatinine 2.8 H GGT 38 H Alkaline Phosphatase 154 H Urine Protein 100 A Urine Nitrate Pos A Urine RBC 2 H Urine WBC 10 H Amorphous Crystals Mod A Urine Bacteria Few A 12/23/17 12/23/17 14:15 14:15 WBC 12.4 H Gran # 8.2 H [place] # (Auto) 1.0 H Potassium Chloride Carbon Dioxide 20 L Anion Gap 17.0 H BUN 32 H Creatinine 2.8 H GGT Alkaline Phosphatase 177 H Urine Protein Urine Nitrate Urine RBC Urine WBC Amorphous Crystals Urine Bacteria Meds: Medications Acetaminophen (Tylenol) 650 mg PO Q6HP PRN PRN Reason: PAIN/FEVER > 101 Hydrocodone Bitart/Acetaminophen ([place] 7.5/325mg) 1 - 2 tab PO Q4-6HP PRN PRN Reason: PAIN LEVEL 3-6 Albuterol Sulfate (Ventolin) 2 puff INH Q6HP PRN PRN Reason: Shortness Of Breath Albuterol/Ipratropium (Duoneb) 3 ml NEB Q6HRT [facility] Last Admin: 12/24/17 02:03 Dose: 3 ml Albuterol/Ipratropium (Duoneb) 3 ml NEB Q4HRT [facility] Alprazolam (Xanax) 0.5 mg PO DAILY [facility] Baclofen (Lioresal) 20 mg PO TID [facility] Last Admin: 12/23/17 23:23 Dose: 20 mg Calcium/Vitamin D (Calcium W/Vit D3) 500 mg PO TID [facility] Famotidine (Pepcid) 20 mg PO HS [facility] Last Admin: 12/23/17 21:58 Dose: 20 mg Furosemide (Lasix) 40 mg PO QDAY [facility] Heparin Sodium (Porcine) (Heparin) 5,000 unit SQ Q12 [facility] Last Admin: 12/23/17 21:57 Dose: 5,000 unit Ertapenem 1 gm/ Sodium (Chloride) 50 mls @ 100 mls/hr IV Q24H [facility] Last Infusion: 12/24/17 00:38 Dose: Infused Levothyroxine Sodium (Synthroid) 100 mcg PO ACB ERNST Levothyroxine Sodium (Synthroid) 75 mcg PO ACB [facility] Midodrine (Midodrine Hcl) 2.5 mg PO TIDP PRN PRN Reason: if BP below 100 systolic Omeprazole (Prilosec) 40 mg PO QAMAC [facility] Ondansetron HCl (Zofran) 4 mg IV Q6HP PRN PRN Reason: Nausea And Vomiting Ondansetron HCl (Zofran Odt) 4 mg PO TIDP PRN PRN Reason: nausea and vomiting Last Admin: 12/24/17 02:03 Dose: 4 mg [Breo Ellipta 200-25 (Mcg Inh) 1 dose INH QDAY [facility] Incruse Ellipta] 1 (Inh)) 1 dose INH QDAY [facility] Sodium Chloride (Saline Flush) 10 ml IV Q8 [facility] Last Admin: 12/24/17 05:23 Dose: 10 ml Vitamin D (Vitamin D3) 2,000 unit PO QDAY [facility] Medical - PN: A/P - Time Spent With Patient Total time spent is greater than 50% in coordination of care (as documented) at patient's floor/unit and/or counseling patient:
--- NOTE | 2017-12-24 07:19 | Internal Med Progress Note ---
Medical - PN: Subj Patient information: Note initiated : 12/24/17 at 7:14 am Service Date, if different from initiated Date: [] Patient: Anita Casas 67 y/o F admitted on 12/23/17 for Not Feeling Well. 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 She felt very weak in her legs although is able to walk. Also complains of headache fever chills nausea she has some sharp abdominal wall shooting pain throughout her abdomen. Her suprapubic catheter site was examined in the ER with some purulence around his replaced. She has chronic shortness of breath denies new cough. 12/24 This morning and a headache which is better and some nausea no vomiting, slept well. Admits to poor perineal hygiene. Review of Systems: denies fever/chillsvomiting/chest or abdominal pain/cough/dyspnea/diarrhea. Otherwise see above. - Constitutional Vitals: Vital Signs Temp Pulse Resp BP Pulse Ox 97.6 F 69 20 116/73 94 12/24/17 02:49 12/24/17 02:49 12/24/17 02:49 12/24/17 02:49 12/24/17 02:49 Period Temp Pulse Resp BP Sys/Santizo Pulse Ox Last 24 Hr 97.6 F-98.2 F 47-98 14-31 96-133/34-89 79-100 Intake and Output 12/23/17 12/24/17 12/24/17 21:59 05:59 13:59 Intake Total 1050 / 1050 275 / 275 Output Total 525 / 525 Balance 1050 / 1050 -250 / -250 Weight 110.223 kg Intake & Output: Intake & Output 12/23/17 12/24/17 12/24/17 21:59 05:59 13:59 Intake Total 1050 / 1050 275 / 275 Output Total 525 / 525 Balance 1050 / 1050 -250 / -250 Weight 110.223 kg Intake: IV 1050 / 1050 25 / 25 Sodium Chloride 0.9% 1,000 ml @ 1000 / 1000 500 mls/hr IV .Q2H [facility] Rx#: [id number] INVanz 1 GM In Sodium Chloride 50 / 50 25 / 25 0.9% 50 ml @ 100 mls/hr IV Q24H [facility] Rx#:[id number] Oral 250 / 250 Output: Urine Catheter Amount 525 / 525 Other: Urine Appearance Clear Suprapubic Clear Urine Color Bright Yellow Suprapubic Bright Yellow Stool Size Small Stool Color Brown Stool Consistency Formed # of times incontinent of 1 Bowels Exam: General: Alert, Awake, No acute Distress HEENT: EOMI, normocephalic atraumatic CV: RRR, 1/6 SM Pulm: Clear b/l, no wheezing/rhonchi/rales Abd: soft, nontender, +BS x4, obese Ext: no clubbing/cyanosis/edema Neuro: Alert, no focal deficits, moves all extremities Skin: warm/dry Medical - PN: Obj Da - Labs CBC & Chem 7: 12/23/17 19:35 12/24/17 04:28 Labs: Abnormal Lab Results 12/24/17 12/23/17 12/23/17 04:28 19:35 14:37 WBC 11.1 H Gran # [place] # (Auto) Potassium 5.2 H Chloride 111 H Carbon Dioxide 18 L Anion Gap BUN 31 H Creatinine 2.8 H GGT 38 H Alkaline Phosphatase 154 H Urine Protein 100 A Urine Nitrate Pos A Urine RBC 2 H Urine WBC 10 H Amorphous Crystals Mod A Urine Bacteria Few A 12/23/17 12/23/17 14:15 14:15 WBC 12.4 H Gran # 8.2 H [place] # (Auto) 1.0 H Potassium Chloride Carbon Dioxide 20 L Anion Gap 17.0 H BUN 32 H Creatinine 2.8 H GGT Alkaline Phosphatase 177 H Urine Protein Urine Nitrate Urine RBC Urine WBC Amorphous Crystals Urine Bacteria Meds: Medications Acetaminophen (Tylenol) 650 mg PO Q6HP PRN PRN Reason: PAIN/FEVER > 101 Hydrocodone Bitart/Acetaminophen ([place] 7.5/325mg) 1 - 2 tab PO Q4-6HP PRN PRN Reason: PAIN LEVEL 3-6 Albuterol Sulfate (Ventolin) 2 puff INH Q6HP PRN PRN Reason: Shortness Of Breath Albuterol/Ipratropium (Duoneb) 3 ml NEB Q6HRT [facility] Last Admin: 12/24/17 02:03 Dose: 3 ml Albuterol/Ipratropium (Duoneb) 3 ml NEB Q4HRT [facility] Alprazolam (Xanax) 0.5 mg PO DAILY [facility] Baclofen (Lioresal) 20 mg PO TID [facility] Last Admin: 12/23/17 23:23 Dose: 20 mg Calcium/Vitamin D (Calcium W/Vit D3) 500 mg PO TID [facility] Famotidine (Pepcid) 20 mg PO HS [facility] Last Admin: 12/23/17 21:58 Dose: 20 mg Furosemide (Lasix) 40 mg PO QDAY [facility] Heparin Sodium (Porcine) (Heparin) 5,000 unit SQ Q12 [facility] Last Admin: 12/23/17 21:57 Dose: 5,000 unit Ertapenem 1 gm/ Sodium (Chloride) 50 mls @ 100 mls/hr IV Q24H [facility] Last Infusion: 12/24/17 00:38 Dose: Infused Levothyroxine Sodium (Synthroid) 100 mcg PO ACB [facility] Levothyroxine Sodium (Synthroid) 75 mcg PO ACB [facility] Midodrine (Midodrine Hcl) 2.5 mg PO TIDP PRN PRN Reason: if BP below 100 systolic Omeprazole (Prilosec) 40 mg PO QAMAC [facility] Ondansetron HCl (Zofran) 4 mg IV Q6HP PRN PRN Reason: Nausea And Vomiting Ondansetron HCl (Zofran Odt) 4 mg PO TIDP PRN PRN Reason: nausea and vomiting Last Admin: 12/24/17 02:03 Dose: 4 mg [Breo Ellipta 200-25 (Mcg Inh) 1 dose INH QDAY [facility] Incruse Ellipta] 1 (Inh)) 1 dose INH QDAY [facility] Sodium Chloride (Saline Flush) 10 ml IV Q8 [facility] Last Admin: 12/24/17 05:23 Dose: 10 ml Vitamin D (Vitamin D3) 2,000 unit PO QDAY [facility] Medical - PN: A/P - Time Spent With Patient Total time spent is greater than 50% in coordination of care (as documented) at patient's floor/unit and/or counseling patient: - Narrative A/P Narrative: A: *UTI, complicated by suprapubic catheter: Multidrug-resistant organism history -CT abd/pelv no acute *Metabolic encephalopathy: Secondary to above, improved *End-stage renal disease: follows with Dr. Seay *Chronic anemia *Morbid obesity *COPD(2L at night and occasionally prn during the day): *Hypertension: *Hypothyroidism *Anxiety *suprapubic catheter chronic, neurogenic bladder: replaced in ED P: -cont IV antibiotics, ertapenem -Pending blood and urine cultures -Dr. Seay following -Suprapubic catheter replaced after discussed with madalyn in ED -f/u with GI outpt for ?achalasia -Continue home medications -ppx: Heparin
[2017-12-24] MEDS: BACLOFEN 10 MG TABLET PO SCH ×3 (08:48→20:34)
[2017-12-24] MEDS: OMEPRAZOLE 20 MG CAPSULE PO SCH (08:49)
[2017-12-24] MEDS: VITAMIN D3 1,000 UNIT TABLET PO SCH (08:49)
[2017-12-24] MEDS: CALCIUM W/VIT D3 500 MG TABLET PO SCH ×3 (08:50→20:34)
[2017-12-24] MEDS: LEVOTHYROXINE 100 MCG TABLET PO SCH (08:50)
[2017-12-24] MEDS: FUROSEMIDE 40 MG TABLET PO SCH (08:50)
[2017-12-24] MEDS: LEVOTHYROXINE 75 MCG TABLET PO SCH (08:50)
[2017-12-24] MEDS: ALPRAZolam 0.5 MG TABLET PO SCH (08:50)
[2017-12-24] MEDS: HEPARIN 5,000 UNIT/ML VIAL SQ SCH ×2 (08:51→20:33)
[2017-12-24] MEDS: HYDROCODONE/APAP 7.5/325MG TABLET PO PRN ×3 (09:17→23:32)
[2017-12-24] MEDS: ERTAPENEM 1 GM in 0.9 % SODIUM CHLORIDE 50 ML IV SCH (14:31)
--- NOTE | 2017-12-24 14:33 | Nephrology Progress Note ---
Subjective Patient information: Note initiated : 12/24/17 at 2:29 pm Service Date, if different from initiated Date: [] Patient: Anita Casas 67 y/o F admitted on 12/23/17 for Not Feeling Well/UTI. Chief Complaint: [] Principal diagnosis: UTI, confusion Interval history: Patient feels a little better mental status has improved vital signs stable no vomiting, intermittent nausea no worsening SOB, CP no edema still some discharge at supra pubic site Pertinent ROS: as above Objective - Vital Signs Vital signs: Vital Signs Temp Pulse Pulse Resp BP BP Pulse Ox 12/24/17 12:00 97.4 F 70 22 100/65 98 12/24/17 08:04 70 18 12/24/17 08:00 97.8 F 72 18 120/72 94 12/24/17 02:49 97.6 F 69 20 116/73 94 12/24/17 00:00 98.2 F 69 20 133/88 100 12/23/17 20:02 87 20 95 12/23/17 19:50 92 H 20 12/23/17 19:34 98.2 F 72 14 116/78 99 12/23/17 19:20 97.6 F 98 H 20 117/89 98 12/23/17 19:06 72 14 99 12/23/17 19:01 19 116/78 12/23/17 18:46 22 96/64 12/23/17 18:31 79 18 122/47 100 12/23/17 18:16 79 24 H 131/46 100 12/23/17 18:02 69 21 109/47 100 12/23/17 17:46 63 25 H 122/79 83 L 12/23/17 17:32 77 17 112/34 98 12/23/17 17:23 76 21 119/48 100 12/23/17 17:01 97/78 12/23/17 16:50 75 21 119/84 100 12/23/17 16:31 84 31 H 100/60 100 12/23/17 16:16 73 18 127/61 100 12/23/17 16:01 47 L 16 108/72 79 L 12/23/17 15:46 68 18 103/86 100 12/23/17 15:32 64 118/53 100 12/23/17 15:18 76 121/56 100 12/23/17 14:45 70 117/50 100 Intake and Output 12/24/17 12/24/17 12/24/17 05:59 13:59 21:59 Intake Total 275 / 275 Output Total 525 / 525 Balance -250 / -250 Intake: IV 25 / 25 INVanz 1 GM In Sodium Chloride 25 / 25 0.9% 50 ml @ 100 mls/hr IV Q24H [facility] Rx#:[id number] Oral 250 / 250 Output: Urine Catheter Amount 525 / 525 Other: Urine Appearance Clear Suprapubic Clear Urine Color Bright Yellow Suprapubic Straw Stool Size Small Stool Color Brown Stool Consistency Formed # of times incontinent of 1 Bowels Weight 243 lb Patient Weight 12/25/17 05:59 Weight 243 lb Intake & Output: Intake & Output 12/24/17 12/24/17 12/24/17 05:59 13:59 21:59 Intake Total 275 / 275 Output Total 525 / 525 Balance -250 / -250 Weight 243 lb Intake: IV 25 / 25 INVanz 1 GM In Sodium Chloride 25 / 25 0.9% 50 ml @ 100 mls/hr IV Q24H [facility] Rx#:[id number] Oral 250 / 250 Output: Urine Catheter Amount 525 / 525 Other: Urine Appearance Clear Suprapubic Clear Urine Color Bright Yellow Suprapubic Straw Stool Size Small Stool Color Brown Stool Consistency Formed # of times incontinent of 1 Bowels - General Appearance General appearance: appears started age, obese EENT: mucous membranes moist Neck: no JVD Respiratory: clear Cardiology: no rub, no edema, regular rate, regular rhythm Gastrointestinal: no tenderness, no guarding Integumentary: warm and dry Neurologic: alert and oriented x3 Musculoskeletal: no erythema, no cyanosis Psychiatric: mood/affect appropriate - Lab 12/23/17 19:35 12/24/17 04:28 Most recent lab results Calcium 8.7 mg/dl (8.6-10.4) 12/24/17 04:28 Phosphorus 3.5 mg/dL (2.7-4.5) 12/24/17 04:28 Magnesium 2.1 mg/dL (1.6-2.5) 12/24/17 04:28 Assessment and Plan (1) Dependence on renal dialysis will hold dialysis for now no acute needs mild hyperkalemia and acidosis, will add sodium bicarb supplement will follow the renal function tomorrow UTI: improving symptoms continue ertapenem possible discharge tomorrow if continues to show improvement patient will need to ensure she takes proper care of her supra pubic cathetor to prevent recurrent infection Status: Chronic (2) Complicated UTI (urinary tract infection) Status: Chronic
--- NOTE | 2017-12-24 16:31 | Discharge Summary ---
Medical - DS: Prov Patient information: Note initiated : 12/24/17 at 4:28 pm Service Date, if different from initiated Date: [] Patient: Anita Casas 67 y/o F admitted on 12/23/17 for Not Feeling Well/UTI. Chief Complaint: [] Date of admission: 12/23/17 19:18 Discharge date: 12/26/17 Primary care physician: Veronica Waterman Consults: 12/23/17 Consult to Physician [CONS] Stat Comment: Consulting Provider: Kaylene Seay Reason For Exam: Physician to Consult Consult to Physician [CONS] Stat Comment: Consulting Provider: Jose Moreno Reason For Exam: admit Medical - DS: Meds - Discharge Medications Prescriptions: Amoxicillin 500 mg PO Q12H #12 tablet Ertapenem [INVanz] 1 gm IV Q24H #1 vial predniSONE [Pred[facility]one] [facility] [place] Active and Home Medications: Home Medications cholecalciferol (vitamin D3) 2,000 unit capsule 2,000 unit PO QDAY #90 cap 08/01 [Rx Confirmed 12/23/17 Last Taken Unknown] alprazolam 0.5 mg tablet 0.5 mg PO .qd tab 08/23/15 [History Confirmed Last Taken 12/20/17] midodrine 5 mg tablet 2.5 mg PO TID PRN 30 Days #45 tab 05/08/16 [Rx Confirmed 12/23/17 Last Taken Unknown] ipratropium-albuterol 0.5 mg-3 mg(2.5 mg base)/3 mL nebulization soln 3 ml INHALATION Q4H #120 ml 05/23/16 [Rx Confirmed 12/23/17 Last Taken 06/01/16 06:00 ] Levothyroxine Sodium [Synthroid] 175 mcg PO QDAY 05/28/16 [History Confirmed 01/30 Last Taken 12/23/17] calcium citrate-vitamin D3 315 mg-200 unit tablet 1 tab PO TID 30 Days #90 tab 08/17/16 [Rx Confirmed 12/23/17 Last Taken 12/23/17] albuterol sulfate HFA 90 mcg/actuation aerosol inhaler 2 puff INHALATION Q6H [History Confirmed 12/23/17 Last Taken 12/23/17] potassium chloride ER 10 mEq capsule,extended release 10 meq PO QDAY #30 cap 06/02 [Rx Confirmed 12/23/17 Last Taken 12/23/17] latex free extension tubing 1 appful MISC PRN 06/21/17 [History Confirmed Last Taken Unknown] fluticasone 200 mcg-vilanterol 25 mcg/dose powder for inhalation 1 inh INHALATION QDAY #180 each 08/14/17 [Rx Confirmed 12/23/17 Last Taken 12/23/17] umeclidinium 62.5 mcg/actuation blister powder for inhalation 1 inh INHALATION QDAY #90 each 08/14/17 [Rx Confirmed 12/23/17 Last Taken Unknown] vitamin B complex-vitamin C-folic acid 0.8 mg tablet 1 tab-cap PO QDAY #30 tab 10/07/17 [Rx Confirmed 12/23/17 Last Taken Unknown] furosemide 40 mg tablet 40 mg PO QDAY #90 tab 10/21/17 [Rx Confirmed 12/23/17 Last Taken 12/23/17] baclofen 20 mg tablet 20 mg PO TID 11/05/17 [History Confirmed 12/23/17 Last Taken 12/23/17] omeprazole 40 mg capsule,delayed release 40 mg PO DAILY #30 cap 12/18/17 [Rx Confirmed 12/23/17 Last Taken 12/23/17] ondansetron HCl 4 mg tablet 4 mg PO TID PRN 10 Days #30 tab 12/18/17 [Rx Confirmed 12/23/17 Last Taken Unknown] Medical - DS: Hosp Hospital course: Mr. Casas is a 67 year old F who's home health aid found her to be confused. In speaking with patient she felt like she was "foggy and difficulty thinking. She felt very weak in her legs although is able to walk. Also complains of headache fever chills nausea she has some sharp abdominal wall shooting pain throughout her abdomen. Her suprapubic catheter site was examined in the ER with some purulence around his replaced. She has chronic shortness of breath denies new cough. 12/24 This morning and a headache which is better and some nausea no vomiting, slept well. Admits to poor perineal hygiene. 12/25 has productive cough and now mentions started several days ago, yellow sputum. overall feels "a little" better. weak. 12/26 cough improving, still weak/tired but ambulating much further and good appetite. pt stable for d/c. Discharge diagnosis: UTI complicated metabolic encephalopathy end-stage renal disease obesity - Time Spent with Patient Total time spent providing and/or coordinating discharge services: Greater than 30 minutes Medical - DS: Exam - Constitutional Vitals: Vital Signs Temp Pulse Pulse Resp BP BP Pulse Ox 12/24/17 14:50 66 20 12/24/17 12:00 97.4 F 70 22 100/65 98 12/24/17 08:04 70 18 12/24/17 08:00 97.8 F 72 18 120/72 94 12/24/17 02:49 97.6 F 69 20 116/73 94 12/24/17 00:00 98.2 F 69 20 133/88 100 12/23/17 20:02 87 20 95 12/23/17 19:50 92 H 20 12/23/17 19:34 98.2 F 72 14 116/78 99 12/23/17 19:20 97.6 F 98 H 20 117/89 98 12/23/17 19:06 72 14 99 12/23/17 19:01 19 116/78 12/23/17 18:46 22 96/64 12/23/17 18:31 79 18 122/47 100 12/23/17 18:16 79 24 H 131/46 100 12/23/17 18:02 69 21 109/47 100 12/23/17 17:46 63 25 H 122/79 83 L 12/23/17 17:32 77 17 112/34 98 12/23/17 17:23 76 21 119/48 100 12/23/17 17:01 97/78 12/23/17 16:50 75 21 119/84 100 12/23/17 16:31 84 31 H 100/60 100 Intake and Output 12/24/17 12/24/17 12/24/17 05:59 13:59 21:59 Intake Total 275 / 275 Output Total 525 / 525 Balance -250 / -250 Intake: IV 25 / 25 INVanz 1 GM In Sodium Chloride 25 / 25 0.9% 50 ml @ 100 mls/hr IV Q24H [facility] Rx#:[id number] Oral 250 / 250 Output: Urine Catheter Amount 525 / 525 Other: Urine Appearance Clear Suprapubic Clear Urine Color Bright Yellow Suprapubic Straw Stool Size Small Stool Color Brown Stool Consistency Formed # of times incontinent of 1 Bowels Weight 110.223 kg Patient Weight 12/25/17 05:59 Weight 110.223 kg Medical - DS: Data Labs on day of discharge: Labs from last 24 hours 12/24/17 12/23/17 04:28 19:35 WBC 11.1 H RBC 4.08 Hgb 12.7 Hct 38.0 MCV 93.0 MCH 31.2 MCHC 33.6 RDW 14.1 Plt Count 191 MPV 9.9 Gran % 61.3 Lymph % (Auto) 24.7 [place] % (Auto) 7.8 Eos % (Auto) 5.3 Baso % (Auto) 0.9 Gran # 6.8 Lymph # (Auto) 2.7 [place] # (Auto) 0.9 Eos # (Auto) 0.6 Baso # (Auto) 0.1 Sodium 140 Potassium 5.2 H Chloride 111 H Carbon Dioxide 18 L Anion Gap 11.0 BUN 31 H Creatinine 2.8 H GFR Calculation 17 Glucose 83 Uric Acid 6.4 Calcium 8.7 Phosphorus 3.5 Magnesium 2.1 Total Bilirubin 0.4 Direct Bilirubin < 0.2 GGT 38 H AST 15 ALT 8 Alkaline Phosphatase 154 H Lactate Dehydrogenase 167 Total Protein 6.2 Albumin 3.3 Globulin 2.9 Albumin/Globulin Ratio 1.1 Triglycerides 119 Preliminary micro results at discharge 12/23/17 14:50 Blood Culture - Preliminary Blood 12/23/17 15:00 Blood Culture - Preliminary Blood Medical - DS: A/P - Patient/Caregiver Discharge Instructions Activity: as per physical therapy Diet: Renal Additional Instructions: Use chlorahexadine or hibiclens daily to keep suprapubic catheter clean. Rinse with water. Pat dry. Prescriptions: Amoxicillin 500 mg PO Q12H #12 tablet Ertapenem [INVanz] 1 gm IV Q24H #1 vial predniSONE [Prednisone] 40 mg PO [facility] #1 tablet - Follow up Plan Follow up with: Veronica Waterman ARNP [Primary Care Provider] - (Patient prefers to schedule her follow up appointment herself.) Kalyene Seay MD [Physician] - (Continue to see Dr. Seay in clinic) Disposition: Xfer SNF Prognosis: Fair Rehab Potential: Fair I certify that the patient requires SNF services: Yes
[2017-12-24] MEDS: SODIUM BICARBONATE 650 MG TABLET PO SCH (20:34)
[2017-12-24] MEDS: FAMOTIDINE 20 MG TABLET PO SCH (20:34)
[2017-12-25] MEDS: IPRATROPIUM/ALBUTEROL 3 ML AMPUL.NEB NEB SCH ×6 (04:30→22:42)
[2017-12-25] MEDS: 0.9 % SODIUM CHLORIDE 10 ML SYRINGE IV SCH ×3 (04:31→22:07)
[2017-12-25] MEDS: OMEPRAZOLE 20 MG CAPSULE PO SCH (07:08)
[2017-12-25] MEDS: LEVOTHYROXINE 100 MCG TABLET PO SCH (07:08)
[2017-12-25] MEDS: LEVOTHYROXINE 75 MCG TABLET PO SCH (07:08)
--- NOTE | 2017-12-25 07:15 | Internal Med Progress Note ---
Medical - PN: Subj Patient information: Note initiated : 12/25/17 at 7:13 am Service Date, if different from initiated Date: [] Patient: Anita Casas 67 y/o F admitted on 12/23/17 for Not Feeling Well/UTI. 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 She felt very weak in her legs although is able to walk. Also complains of headache fever chills nausea she has some sharp abdominal wall shooting pain throughout her abdomen. Her suprapubic catheter site was examined in the ER with some purulence around his replaced. She has chronic shortness of breath denies new cough. 12/24 This morning and a headache which is better and some nausea no vomiting, slept well. Admits to poor perineal hygiene. 12/25 has productive cough and now mentions started several days ago, yellow sputum. overall feels "a little" better. weak. Review of Systems: denies headache/fever/chills/vomiting/diarrhea. Otherwise see above. - Constitutional Vitals: Vital Signs Temp Pulse Resp BP Pulse Ox 97.8 F 84 24 H 117/71 96 12/25/17 03:27 12/25/17 03:27 12/25/17 03:27 12/25/17 03:27 12/25/17 03:27 Period Temp Pulse Resp BP Sys/Santizo Pulse Ox Last 24 Hr 96.6 F-97.8 F 66-84 16-24 100-134/65-78 94-100 Intake and Output 12/24/17 12/25/17 12/25/17 21:59 05:59 13:59 Intake Total 1110 / 1110 550 / 550 Output Total 900 / 900 975 / 975 Balance 210 / 210 -425 / -425 Weight 108.409 kg Intake & Output: Intake & Output 12/24/17 12/25/17 12/25/17 21:59 05:59 13:59 Intake Total 1110 / 1110 550 / 550 Output Total 900 / 900 975 / 975 Balance 210 / 210 -425 / -425 Weight 108.409 kg Intake: IV 50 / 50 INVanz 1 GM In Sodium Chloride 50 / 50 0.9% 50 ml @ 100 mls/hr IV Q24H [facility] Rx#:[id number] Oral 1060 / 1060 550 / 550 Output: Urine Catheter Amount 900 / 900 Void Amount 975 / 975 Other: Meal Dinner Percent of Meal Consumed 25% Feeding Ability Independent Urine Appearance Sediment Clear Suprapubic Clear Urine Color Straw Pale Suprapubic Pale Urine Odor Strong Normal Stool Size Small Small Stool Color Brown Brown Stool Consistency Formed Formed # Bowel Movements 1 1 Exam: General: Alert, Awake, No acute Distress HEENT: EOMI, normocephalic atraumatic CV: RRR, 1/6 SM Pulm: diminished b/l, mild exp wheezing today, no rhonchi Abd: soft, nontender, +BS x4, obese Ext: no clubbing/cyanosis Neuro: Alert, no focal deficits, moves all extremities Skin: warm/dry Medical - PN: Obj Da - Labs CBC & Chem 7: 12/25/17 07:03 12/24/17 04:28 Labs: Abnormal Lab Results 12/24/17 12/23/17 12/23/17 04:28 19:35 14:37 WBC 11.1 H Gran # [place] # (Auto) Potassium 5.2 H Chloride 111 H Carbon Dioxide 18 L Anion Gap BUN 31 H Creatinine 2.8 H GGT 38 H Alkaline Phosphatase 154 H Urine Protein 100 A Urine Nitrate Pos A Urine RBC 2 H Urine WBC 10 H Amorphous Crystals Mod A Urine Bacteria Few A 12/23/17 12/23/17 14:15 14:15 WBC 12.4 H Gran # 8.2 H [place] # (Auto) 1.0 H Potassium Chloride Carbon Dioxide 20 L Anion Gap 17.0 H BUN 32 H Creatinine 2.8 H GGT Alkaline Phosphatase 177 H Urine Protein Urine Nitrate Urine RBC Urine WBC Amorphous Crystals Urine Bacteria Meds: Medications Acetaminophen (Tylenol) 650 mg PO Q6HP PRN PRN Reason: PAIN/FEVER > 101 Hydrocodone Bitart/Acetaminophen ([place] 7.5/325mg) 1 - 2 tab PO Q4HP PRN PRN Reason: PAIN LEVEL 3-6 Last Admin: 12/24/17 23:32 Dose: 1 tab Albuterol Sulfate (Ventolin) 2 puff INH Q6HP PRN PRN Reason: Shortness Of Breath Albuterol/Ipratropium (Duoneb) 3 ml NEB Q4HRT [facility] Last Admin: 12/25/17 04:30 Dose: Not Given Alprazolam (Xanax) 0.5 mg PO DAILY [facility] Last Admin: 12/24/17 08:50 Dose: 0.5 mg Baclofen (Lioresal) 20 mg PO TID [facility] Last Admin: 12/24/17 20:34 Dose: 20 mg Calcium/Vitamin D (Calcium W/Vit D3) 500 mg PO TID [facility] Last Admin: 12/24/17 20:34 Dose: 500 mg Famotidine (Pepcid) 20 mg PO HS [facility] Last Admin: 12/24/17 20:34 Dose: 20 mg Furosemide (Lasix) 40 mg PO QDAY [facility] Last Admin: 12/24/17 08:50 Dose: 40 mg Heparin Sodium (Porcine) (Heparin) 5,000 unit SQ Q12 [facility] Last Admin: 12/24/17 20:33 Dose: 5,000 unit Ertapenem 1 gm/ Sodium (Chloride) 50 mls @ 100 mls/hr IV Q24H [facility] Last Infusion: 12/24/17 15:00 Dose: Infused Levothyroxine Sodium (Synthroid) 100 mcg PO ACB [facility] Last Admin: 12/25/17 07:08 Dose: 100 mcg Levothyroxine Sodium (Synthroid) 75 mcg PO ACB [facility] Last Admin: 12/25/17 07:08 Dose: 75 mcg Midodrine (Midodrine Hcl) 2.5 mg PO TIDP PRN PRN Reason: if BP below 100 systolic Omeprazole (Prilosec) 40 mg PO QAMAC [facility] Last Admin: 12/25/17 07:08 Dose: 40 mg Ondansetron HCl (Zofran) 4 mg IV Q6HP PRN PRN Reason: Nausea And Vomiting Ondansetron HCl (Zofran Odt) 4 mg PO TIDP PRN PRN Reason: nausea and vomiting Last Admin: 12/24/17 20:34 Dose: 4 mg Incruse Ellipta (Inhaler) 1 dose INH QDAY [facility] Last Admin: 12/24/17 13:12 Dose: Not Given Sodium Bicarbonate (Sodium Bicarbonate) 650 mg PO BID [facility] Last Admin: 12/24/17 20:34 Dose: 650 mg Sodium Chloride (Saline Flush) 10 ml IV Q8 [facility] Last Admin: 12/25/17 04:31 Dose: 10 ml Vitamin D (Vitamin D3) 2,000 unit PO QDAY [facility] Last Admin: 12/24/17 08:49 Dose: 2,000 unit Medical - PN: A/P - Time Spent With Patient Total time spent is greater than 50% in coordination of care (as documented) at patient's floor/unit and/or counseling patient: - Narrative A/P Narrative: A: *UTI, complicated by suprapubic catheter (GNB/GPC): Multidrug-resistant organism history -CT abd/pelv no acute *Metabolic encephalopathy: Secondary to above, improved *End-stage renal disease: follows with Dr. Seay *Chronic anemia *Morbid obesity *COPD(2L at night and occasionally prn during the day) with mild exacerbation *Hypertension: *Hypothyroidism *Anxiety *suprapubic catheter chronic, neurogenic bladder: replaced in ED P: -cont IV antibiotics, ertapenem -Pending urine cultures -Dr. Seay following -short course steroid taper, prn nebs, is/acapella -Suprapubic catheter replaced after discussed with madalyn in ED -f/u with GI outpt for ?achalasia -Continue home medications -ppx: Heparin
[2017-12-25 07:55] LABS: Basophils # (Auto) 0.1 K/mcL (0.0-0.3); Basophils % (Auto) 0.9 % (0.0-2.0); Eosinophils # (Auto) 0.4 K/mcL (0.0-0.7); Eosinophils % (Auto) 4.6 % (0.0-7.0); Granulocytes % (Auto) 65.3 % (38.0-78.0); Lymphocytes # (Auto) 1.7 K/mcL (1.5-4.8); Lymphocytes % (Auto) 20.8 % (15.5-49.0); Mean Cell Volume 92.8 fL (80.0-100.0); Mean Corpuscular HGB Conc 34.1 g/dL (31.0-36.0); Mean Corpuscular Hemoglobin 31.6 pg (26.0-34.0); Monocytes # (Auto) 0.7 K/mcL (0.1-0.9); Monocytes % (Auto) 8.4 % (1.0-12.0); Platelet Count 170 K/mcL (140-440); RBC 3.86 M/mcL (4.00-5.20); Red Cell Distribution Width 13.8 % (11.5-14.5)
[2017-12-25] MEDS ORDERED: methylPREDNISolone SOD SUCC 125 MG/2 ML VIAL IV ONE (08:28)
[2017-12-25 08:45] LABS: Blood Urea Nitrogen 38 mg/dl (8-23)
[2017-12-25] MEDS: FUROSEMIDE 40 MG TABLET PO SCH (09:27)
[2017-12-25] MEDS: ALPRAZolam 0.5 MG TABLET PO SCH (09:27)
[2017-12-25] MEDS: VITAMIN D3 1,000 UNIT TABLET PO SCH (09:27)
[2017-12-25] MEDS: HEPARIN 5,000 UNIT/ML VIAL SQ SCH ×2 (09:27→22:07)
[2017-12-25] MEDS: ERTAPENEM 1 GM in 0.9 % SODIUM CHLORIDE 50 ML IV SCH (09:27)
[2017-12-25] MEDS: CALCIUM W/VIT D3 500 MG TABLET PO SCH ×3 (09:27→22:05)
[2017-12-25] MEDS: SODIUM BICARBONATE 650 MG TABLET PO SCH ×2 (09:27→22:06)
[2017-12-25] MEDS: BACLOFEN 10 MG TABLET PO SCH ×3 (09:27→22:06)
--- NOTE | 2017-12-25 12:34 | Nephrology Progress Note ---
Subjective Patient information: Note initiated : 12/25/17 at 12:32 pm Service Date, if different from initiated Date: [] Patient: Anita Casas 67 y/o F admitted on 12/23/17 for Not Feeling Well/UTI. Chief Complaint: [] Principal diagnosis: UTI, confusion Interval history: patient more SOB today and wheezing, will be started on low dose prednisone also has some myoclonic tremors no fever, chills no edema denies any other concerns renal function did get worse, persistent acidosis, will do dialysis today Pertinent ROS: as above Objective - Vital Signs Vital signs: Vital Signs Temp Pulse Pulse Resp BP BP Pulse Ox 12/25/17 12:06 70 111/60 12/25/17 11:39 71 110/58 12/25/17 11:04 73 128/64 12/25/17 10:59 77 13 12/25/17 10:37 96.3 F L 80 114/57 12/25/17 08:00 97.4 F 80 22 93/49 96 12/25/17 07:55 78 15 12/25/17 03:27 97.8 F 84 24 H 117/71 96 12/24/17 23:31 100 12/24/17 23:30 97.4 F 67 16 114/69 12/24/17 23:05 73 18 12/24/17 20:00 97.4 F 68 22 134/78 98 12/24/17 19:28 72 18 96 12/24/17 19:10 75 18 12/24/17 16:00 96.6 F L 71 18 122/69 98 12/24/17 14:50 66 20 Intake and Output 12/24/17 12/25/17 12/25/17 21:59 05:59 13:59 Intake Total 1110 / 1110 550 / 550 Output Total 900 / 900 975 / 975 Balance 210 / 210 -425 / -425 Intake: IV 50 / 50 INVanz 1 GM In Sodium Chloride 50 / 50 0.9% 50 ml @ 100 mls/hr IV Q24H [facility] Rx#:[id number] Oral 1060 / 1060 550 / 550 Output: Urine Catheter Amount 900 / 900 Void Amount 975 / 975 Other: Meal Dinner Percent of Meal Consumed 25% Feeding Ability Independent Urine Appearance Sediment Clear Suprapubic Clear Urine Color Straw Pale Suprapubic Pale Urine Odor Strong Normal Stool Size Small Small Stool Color Brown Brown Stool Consistency Formed Formed # Bowel Movements 1 1 Weight 239 lb Intake & Output: Intake & Output 12/24/17 12/25/17 12/25/17 21:59 05:59 13:59 Intake Total 1110 / 1110 550 / 550 Output Total 900 / 900 975 / 975 Balance 210 / 210 -425 / -425 Weight 239 lb Intake: IV 50 / 50 INVanz 1 GM In Sodium Chloride 50 / 50 0.9% 50 ml @ 100 mls/hr IV Q24H [facility] Rx#:[id number] Oral 1060 / 1060 550 / 550 Output: Urine Catheter Amount 900 / 900 Void Amount 975 / 975 Other: Meal Dinner Percent of Meal Consumed 25% Feeding Ability Independent Urine Appearance Sediment Clear Suprapubic Clear Urine Color Straw Pale Suprapubic Pale Urine Odor Strong Normal Stool Size Small Small Stool Color Brown Brown Stool Consistency Formed Formed # Bowel Movements 1 1 - General Appearance General appearance: appears started age, obese, frail EENT: mucous membranes moist Neck: no JVD Respiratory: wheezing Cardiology: no rub, no edema, regular rate, regular rhythm Gastrointestinal: no tenderness, no guarding Integumentary: warm and dry Neurologic: alert and oriented x3 Musculoskeletal: no erythema, no cyanosis Psychiatric: mood/affect appropriate - Lab 12/25/17 07:03 12/25/17 07:03 Most recent lab results Calcium 9.3 mg/dl (8.6-10.4) 12/25/17 07:03 Phosphorus 3.5 mg/dL (2.7-4.5) 12/24/17 04:28 Magnesium 2.1 mg/dL (1.6-2.5) 12/24/17 04:28 Assessment and Plan (1) Dependence on renal dialysis HD today for 3 hrs using 3K/2.5 ca dialysate 38 bicarb, no UF removal continue outpatient dialysis, probable discharge tomorrow, if not discharged will need dialysis over the weekend UTI: improving symptoms continue ertapenem UC with enterococcus will request Dr Lopez to follow tomorrow Status: Chronic (2) Complicated UTI (urinary tract infection) Status: Chronic
[2017-12-25] MEDS ORDERED: VANCOMYCIN PER PHARMACY IV SCH (12:43)
[2017-12-25] MEDS ORDERED: VANCOMYCIN 1,500 MG in 0.9 % SODIUM CHLORIDE 500 ML IV ONE (15:00)
[2017-12-25] MEDS: HYDROCODONE/APAP 7.5/325MG TABLET PO PRN (22:06)
[2017-12-25] MEDS: FAMOTIDINE 20 MG TABLET PO SCH (22:06)
[2017-12-26] MEDS: ONDANSETRON ODT 4 MG TABLET PO PRN ×2 (01:32→14:06)
[2017-12-26] MEDS: IPRATROPIUM/ALBUTEROL 3 ML AMPUL.NEB NEB SCH ×6 (02:56→22:57)
[2017-12-26] MEDS: 0.9 % SODIUM CHLORIDE 10 ML SYRINGE IV SCH ×4 (02:59→21:56)
[2017-12-26] MEDS: HYDROCODONE/APAP 7.5/325MG TABLET PO PRN ×3 (03:05→16:45)
[2017-12-26 06:44] LABS: Blood Urea Nitrogen 25 mg/dl (8-23)
--- NOTE | 2017-12-26 07:00 | Internal Med Progress Note ---
Medical - PN: Subj Patient information: Note initiated : 12/26/17 at 6:57 am Service Date, if different from initiated Date: [] Patient: Anita Casas a 67 y/o F admitted on 12/23/17 for Not Feeling Well/UTI. 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 She felt very weak in her legs although is able to walk. Also complains of headache fever chills nausea she has some sharp abdominal wall shooting pain throughout her abdomen. Her suprapubic catheter site was examined in the ER with some purulence around his replaced. She has chronic shortness of breath denies new cough. 12/24 This morning and a headache which is better and some nausea no vomiting, slept well. Admits to poor perineal hygiene. 12/25 has productive cough and now mentions started several days ago, yellow sputum. overall feels "a little" better. weak. 12/26 cough improving, still weak/tired. Review of Systems: denies headache/fever/chills/nausea/vomiting/chest or abdominal pain/diarrhea. Otherwise see above. - Constitutional Vitals: Vital Signs Temp Pulse Resp BP Pulse Ox 97.4 F 79 22 104/64 95 12/26/17 03:02 12/26/17 03:02 12/26/17 03:02 12/26/17 03:02 12/26/17 03:02 Period Temp Pulse Resp BP Sys/Santizo Pulse Ox Last 24 Hr 96.3 F-98.5 F 69-85 12-24 90-134/49-74 95-96 Intake and Output 12/25/17 12/26/17 12/26/17 21:59 05:59 13:59 Intake Total 840 / 840 850 / 850 Output Total 1300 / 1300 1350 / 1350 Balance -460 / -460 -500 / -500 Weight 108.635 kg Intake & Output: Intake & Output 12/25/17 12/26/17 12/26/17 21:59 05:59 13:59 Intake Total 840 / 840 850 / 850 Output Total 1300 / 1300 1350 / 1350 Balance -460 / -460 -500 / -500 Weight 108.635 kg Intake: IV 500 / 500 Oral 840 / 840 350 / 350 Output: Urine Catheter Amount 1300 / 1300 1350 / 1350 Other: Meal Dinner Mixed Fruit Cup Percent of Meal Consumed 100% 100% Feeding Ability Assist with Tray Set Up Independent Urine Appearance Clear Urine Color Pale Pale Suprapubic Bright Yellow Urine Odor Normal Suprapubic Normal Exam: General: Alert, Awake, No acute Distress HEENT: EOMI, normocephalic atraumatic CV: RRR, 1/6 SM Pulm: better aeration, still some mild exp wheezing today, no rhonchi Abd: soft, nontender, +BS x4, obese Ext: no clubbing/cyanosis Neuro: Alert, no focal deficits, moves all extremities Skin: warm/dry Medical - PN: Obj Da - Labs CBC & Chem 7: 12/25/17 07:03 12/26/17 04:25 Labs: Abnormal Lab Results 12/26/17 12/25/17 12/25/17 04:25 07:03 07:03 WBC RBC 3.86 L Hct 35.8 L Gran # [place] # (Auto) Potassium Chloride Carbon Dioxide 18 L Anion Gap BUN 25 H 38 H Creatinine 2.5 H 3.2 H GGT Alkaline Phosphatase Urine Protein Urine Nitrate Urine RBC Urine WBC Amorphous Crystals Urine Bacteria 12/24/17 12/23/17 12/23/17 04:28 19:35 14:37 WBC 11.1 H RBC Hct Gran # [place] # (Auto) Potassium 5.2 H Chloride 111 H Carbon Dioxide 18 L Anion Gap BUN 31 H Creatinine 2.8 H GGT 38 H Alkaline Phosphatase 154 H Urine Protein 100 A Urine Nitrate Pos A Urine RBC 2 H Urine WBC 10 H Amorphous Crystals Mod A Urine Bacteria Few A 12/23/17 12/23/17 14:15 14:15 WBC 12.4 H RBC Hct Gran # 8.2 H [place] # (Auto) 1.0 H Potassium Chloride Carbon Dioxide 20 L Anion Gap 17.0 H BUN 32 H Creatinine 2.8 H GGT Alkaline Phosphatase 177 H Urine Protein Urine Nitrate Urine RBC Urine WBC Amorphous Crystals Urine Bacteria Meds: Medications Acetaminophen (Tylenol) 650 mg PO Q6HP PRN PRN Reason: PAIN/FEVER > 101 Hydrocodone Bitart/Acetaminophen ([place] 7.5/325mg) 1 - 2 tab PO Q4HP PRN PRN Reason: PAIN LEVEL 3-6 Last Admin: 12/26/17 03:05 Dose: 1 tab Albuterol Sulfate (Ventolin) 2 puff INH Q6HP PRN PRN Reason: Shortness Of Breath Albuterol/Ipratropium (Duoneb) 3 ml NEB Q4HRT [facility] Last Admin: 12/26/17 02:56 Dose: 3 ml Alprazolam (Xanax) 0.5 mg PO DAILY [facility] Last Admin: 12/25/17 09:27 Dose: 0.5 mg Baclofen (Lioresal) 20 mg PO TID [facility] Last Admin: 12/25/17 22:06 Dose: 20 mg Calcium/Vitamin D (Calcium W/Vit D3) 500 mg PO TID [facility] Last Admin: 12/25/17 22:05 Dose: 500 mg Famotidine (Pepcid) 20 mg PO HS [facility] Last Admin: 12/25/17 22:06 Dose: 20 mg Furosemide (Lasix) 40 mg PO QDAY [facility] Last Admin: 12/25/17 09:27 Dose: 40 mg Heparin Sodium (Porcine) (Heparin) 5,000 unit SQ Q12 [facility] Last Admin: 12/25/17 22:07 Dose: 5,000 unit Ertapenem 1 gm/ Sodium (Chloride) 50 mls @ 100 mls/hr IV Q24H [facility] Last Infusion: 12/25/17 10:00 Dose: Infused Levothyroxine Sodium (Synthroid) 100 mcg PO ACB [facility] Last Admin: 12/25/17 07:08 Dose: 100 mcg Levothyroxine Sodium (Synthroid) 75 mcg PO ACB [facility] Last Admin: 12/25/17 07:08 Dose: 75 mcg Methylprednisolone Sodium Succinate (Solu-Medrol) 40 mg IV DAILY [facility] Stop: 12/27/17 09:01 Midodrine (Midodrine Hcl) 2.5 mg PO TIDP PRN PRN Reason: if BP below 100 systolic Omeprazole (Prilosec) 40 mg PO QAMAC [facility] Last Admin: 12/25/17 07:08 Dose: 40 mg Ondansetron HCl (Zofran) 4 mg IV Q6HP PRN PRN Reason: Nausea And Vomiting Ondansetron HCl (Zofran Odt) 4 mg PO TIDP PRN PRN Reason: nausea and vomiting Last Admin: 12/26/17 01:32 Dose: 4 mg Incruse Ellipta (Inhaler) 1 dose INH QDAY [facility] Last Admin: 12/25/17 09:28 Dose: Not Given Sodium Bicarbonate (Sodium Bicarbonate) 650 mg PO BID [facility] Last Admin: 12/25/17 22:06 Dose: 650 mg Sodium Chloride (Saline Flush) 10 ml IV Q8 [facility] Last Admin: 12/26/17 05:29 Dose: 10 ml Vancomycin HCl (Vancomycin Per Pharmacy) 1 order IV UD [facility] Vitamin D (Vitamin D3) 2,000 unit PO QDAY [facility] Last Admin: 12/25/17 09:27 Dose: 2,000 unit Medical - PN: A/P - Time Spent With Patient Total time spent is greater than 50% in coordination of care (as documented) at patient's floor/unit and/or counseling patient: - Narrative A/P Narrative: A: *UTI, complicated by suprapubic catheter (Enterocoocus/GNB): Multidrug- resistant organism history -CT abd/pelv no acute *Metabolic encephalopathy: Secondary to above, improved *End-stage renal disease: follows with Dr. Seay *Chronic anemia *Morbid obesity *COPD(2L@night & occasionally prn during the day) with mild exacerbation *Hypertension: *Hypothyroidism *Anxiety *suprapubic catheter chronic, neurogenic bladder: replaced in ED P: -cont IV antibiotics, ertapenem -Pending urine cultures and sens -Dr. Seay following -short course steroid taper, prn nebs, is/acapella -Suprapubic catheter replaced after discussed with madalyn in ED -f/u with GI outpt for ?achalasia -Continue home medications -ppx: Heparin
--- NOTE | 2017-12-26 07:17 | Nephrology Progress Note ---
Subjective Patient information: Note initiated : 12/26/17 at 7:15 am Anita Casas is a 67-year-old female admitted on 12/23/17. Chief Complaint: Weakness Principal diagnosis: End stage renal disease Interval history: Last hemodialysis on 12/25/17 Pertinent ROS: No shortness of breath No chest pain Weakness Minimal edema No rash Objective - Vital Signs Vital signs: Vital Signs Temp Pulse Pulse Resp BP BP Pulse Ox 12/26/17 07:08 97.6 F 17 99/57 94 12/26/17 03:02 97.4 F 79 22 104/64 95 12/26/17 03:00 81 18 12/26/17 00:00 97.8 F 77 22 90/54 96 12/25/17 22:42 76 18 12/25/17 19:35 98.5 F 85 24 H 90/53 96 12/25/17 18:29 18 96 12/25/17 16:00 97.4 F 79 22 113/61 96 12/25/17 14:55 78 12 12/25/17 13:32 97.0 F 69 122/62 12/25/17 13:06 80 134/74 12/25/17 12:36 69 117/61 12/25/17 12:06 70 111/60 12/25/17 12:00 97.4 F 70 22 111/62 96 12/25/17 11:39 71 110/58 12/25/17 11:04 73 128/64 12/25/17 10:59 77 13 12/25/17 10:37 96.3 F L 80 114/57 12/25/17 08:00 97.4 F 80 22 93/49 96 12/25/17 07:55 78 15 Intake and Output 12/25/17 12/26/17 12/26/17 21:59 05:59 13:59 Intake Total 840 / 840 850 / 850 Output Total 1300 / 1300 1350 / 1350 Balance -460 / -460 -500 / -500 Intake: IV 500 / 500 Oral 840 / 840 350 / 350 Output: Urine Catheter Amount 1300 / 1300 1350 / 1350 Other: Meal Dinner Mixed Fruit Cup Percent of Meal Consumed 100% 100% Feeding Ability Assist with Tray Set Up Independent Urine Appearance Clear Urine Color Pale Pale Suprapubic Bright Yellow Urine Odor Normal Suprapubic Normal Weight 239 lb 8 oz Intake & Output: Intake & Output 12/25/17 12/26/17 12/26/17 21:59 05:59 13:59 Intake Total 840 / 840 850 / 850 Output Total 1300 / 1300 1350 / 1350 Balance -460 / -460 -500 / -500 Weight 239 lb 8 oz Intake: IV 500 / 500 Oral 840 / 840 350 / 350 Output: Urine Catheter Amount 1300 / 1300 1350 / 1350 Other: Meal Dinner Mixed Fruit Cup Percent of Meal Consumed 100% 100% Feeding Ability Assist with Tray Set Up Independent Urine Appearance Clear Urine Color Pale Pale Suprapubic Bright Yellow Urine Odor Normal Suprapubic Normal - General Appearance General appearance: chronically ill, fatigue EENT: mucous membranes moist Neck: supple Respiratory: clear Cardiology: edema Gastrointestinal: no tenderness Integumentary: warm and dry Neurologic: no focal deficit, alert and oriented x3 Musculoskeletal: no deformities Psychiatric: mood/affect appropriate, cooperative - Lab 12/25/17 07:03 12/26/17 04:25 Most recent lab results Calcium 9.5 mg/dl (8.6-10.4) 12/26/17 04:25 Phosphorus 3.5 mg/dL (2.7-4.5) 12/24/17 04:28 Magnesium 2.1 mg/dL (1.6-2.5) 12/24/17 04:28 Assessment and Plan (1) ESRD (end stage renal disease) on dialysis Anita Caass is a 67-year-old female with end-stage renal disease on chronic hemodialysis (through left arm AV fistula, at [facility], on Saturday and Fridays, followed by Dr. Seay), secondary hyperparathyroidism of renal origin, chronic anemia due to kidney disease, admitted on 12/23/17. Plan: No hemodialysis today Status: Chronic Priority: Medium (2) Urinary tract infection associated with cystostomy catheter Urine culture: Enterococcus; I/S pending Treatment: Ertapenem Status: Acute Priority: High Qualifiers: Encounter type: subsequent encounter Qualified Code(s): T83.510D - Infection and inflammatory reaction due to cystostomy catheter, subsequent encounter; N39.0 - Urinary tract infection, site not specified
[2017-12-26] MEDS: methylPREDNISolone SOD SUCC 40 MG/ML VIAL IV SCH (08:13)
[2017-12-26] MEDS: LEVOTHYROXINE 100 MCG TABLET PO SCH (08:13)
[2017-12-26] MEDS: VITAMIN D3 1,000 UNIT TABLET PO SCH (08:13)
[2017-12-26] MEDS: CALCIUM W/VIT D3 500 MG TABLET PO SCH ×3 (08:13→21:55)
[2017-12-26] MEDS: ALPRAZolam 0.5 MG TABLET PO SCH (08:13)
[2017-12-26] MEDS: BACLOFEN 10 MG TABLET PO SCH ×3 (08:13→21:55)
[2017-12-26] MEDS: SODIUM BICARBONATE 650 MG TABLET PO SCH ×2 (08:13→21:55)
[2017-12-26] MEDS: FUROSEMIDE 40 MG TABLET PO SCH (08:13)
[2017-12-26] MEDS: HEPARIN 5,000 UNIT/ML VIAL SQ SCH ×2 (08:13→21:56)
[2017-12-26] MEDS: OMEPRAZOLE 20 MG CAPSULE PO SCH (08:13)
[2017-12-26] MEDS: LEVOTHYROXINE 75 MCG TABLET PO SCH (08:13)
[2017-12-26] MEDS: ERTAPENEM 1 GM in 0.9 % SODIUM CHLORIDE 50 ML IV SCH (09:05)
--- NOTE | 2017-12-26 14:35 | XRay Report ---
CLINICAL INFORMATION: History of urinary tract infection. Not feeling well TECHNIQUE: Supine abdomen COMPARISON: CT scan dated 12/23/2017. Previous plain film examination dated 12/18/2017 FINDINGS: Bowel gas pattern is unremarkable and nonobstructive. There is gastric gas. There is gas and fecal material within the colon. No dilated gas-filled small bowel. No pneumatosis. No biliary or portal venous gas. An upright film was not obtained. Multilevel degenerative disc disease the lumbar spine. No pathologic calcifications identified. IMPRESSION: 1. Nonspecific, nonobstructive bowel gas pattern 2. No biliary or portal venous gas. No pneumatosis. No acute abnormality Interpreted and Authenticated by: Jeremías Sheth 12/26/17
[2017-12-26] MEDS: FAMOTIDINE 20 MG TABLET PO SCH (21:55)
[2017-12-27] MEDS: IPRATROPIUM/ALBUTEROL 3 ML AMPUL.NEB NEB SCH ×4 (02:37→10:47)
[2017-12-27] MEDS: HYDROCODONE/APAP 7.5/325MG TABLET PO PRN ×3 (02:50→08:20)
[2017-12-27] MEDS: 0.9 % SODIUM CHLORIDE 10 ML SYRINGE IV SCH (05:01)
[2017-12-27] MEDS: LEVOTHYROXINE 100 MCG TABLET PO SCH (06:59)
[2017-12-27] MEDS: LEVOTHYROXINE 75 MCG TABLET PO SCH (06:59)
[2017-12-27] MEDS: OMEPRAZOLE 20 MG CAPSULE PO SCH (06:59)
--- NOTE | 2017-12-27 07:11 | Nephrology Progress Note ---
Subjective Patient information: Note initiated : 12/27/17 at 7:08 am Anita Casas is a 67-year-old female admitted on 12/23/17. Chief Complaint: Weakness Principal diagnosis: End stage renal disease Interval history: Last hemodialysis on 12/25/17 Pertinent ROS: No shortness of breath No chest pain Weakness Minimal edema No rash Objective - Vital Signs Vital signs: Vital Signs Temp Pulse Pulse Resp BP Pulse Ox 12/27/17 04:00 97.6 F 73 20 123/72 96 12/26/17 23:31 98.4 F 80 18 98/91 95 12/26/17 22:58 80 16 12/26/17 19:51 97.6 F 72 20 136/71 96 12/26/17 18:52 72 20 12/26/17 18:46 70 20 12/26/17 16:00 97.3 F 88 18 110/67 95 12/26/17 12:00 73 18 12/26/17 11:29 97.9 F 73 18 115/71 92 12/26/17 08:37 75 18 Intake and Output 12/26/17 12/27/17 12/27/17 21:59 05:59 13:59 Intake Total 740 / 740 600 / 600 Output Total 1550 / 1550 700 / 700 Balance -810 / -810 -100 / -100 Intake: Oral 740 / 740 600 / 600 Output: Urine Catheter Amount 1150 / 1150 700 / 700 Emesis 400 / 400 Other: Meal Dinner Percent of Meal Consumed 50% Feeding Ability Assist with Tray Set Up Urine Appearance Clear Sediment Suprapubic Clear Urine Color Pale Straw Suprapubic Bright Yellow Urine Odor Normal Suprapubic Normal Weight 240 lb Intake & Output: Intake & Output 12/26/17 12/27/17 12/27/17 21:59 05:59 13:59 Intake Total 740 / 740 600 / 600 Output Total 1550 / 1550 700 / 700 Balance -810 / -810 -100 / -100 Weight 240 lb Intake: Oral 740 / 740 600 / 600 Output: Urine Catheter Amount 1150 / 1150 700 / 700 Emesis 400 / 400 Other: Meal Dinner Percent of Meal Consumed 50% Feeding Ability Assist with Tray Set Up Urine Appearance Clear Sediment Suprapubic Clear Urine Color Pale Straw Suprapubic Bright Yellow Urine Odor Normal Suprapubic Normal - General Appearance General appearance: chronically ill EENT: mucous membranes moist Neck: supple Respiratory: clear Cardiology: edema Gastrointestinal: no tenderness Integumentary: ecchymotic Neurologic: no focal deficit, alert and oriented x3 Musculoskeletal: no deformities Psychiatric: mood/affect appropriate, cooperative - Lab 12/25/17 07:03 12/26/17 04:25 Most recent lab results Calcium 9.5 mg/dl (8.6-10.4) 12/26/17 04:25 Phosphorus 3.5 mg/dL (2.7-4.5) 12/24/17 04:28 Magnesium 2.1 mg/dL (1.6-2.5) 12/24/17 04:28 Assessment and Plan (1) ESRD (end stage renal disease) on dialysis Anita Casas is a 67-year-old female with end-stage renal disease on chronic hemodialysis (through left arm AV fistula, at [facility], on Saturday and Fridays, followed by Dr. Seay), secondary hyperparathyroidism of renal origin, chronic anemia due to kidney disease, admitted on 12/23/17. Plan: Hemodialysis in outpatient unit after discharge today Status: Chronic Priority: Medium (2) Urinary tract infection associated with cystostomy catheter Urine culture: Enterococcus and Proteus Mirabilis ; I/S available Treatment: Vancomycin and Ertapenem Status: Acute Priority: High Qualifiers: Encounter type: subsequent encounter Qualified Code(s): T83.510D - Infection and inflammatory reaction due to cystostomy catheter, subsequent encounter; N39.0 - Urinary tract infection, site not specified
[2017-12-27] MEDS: methylPREDNISolone SOD SUCC 40 MG/ML VIAL IV SCH (08:14)
[2017-12-27] MEDS: HEPARIN 5,000 UNIT/ML VIAL SQ SCH (08:16)
[2017-12-27] MEDS: CALCIUM W/VIT D3 500 MG TABLET PO SCH (08:16)
[2017-12-27] MEDS: SODIUM BICARBONATE 650 MG TABLET PO SCH (08:16)
[2017-12-27] MEDS: BACLOFEN 10 MG TABLET PO SCH (08:16)
[2017-12-27] MEDS: VITAMIN D3 1,000 UNIT TABLET PO SCH (08:16)
[2017-12-27] MEDS: FUROSEMIDE 40 MG TABLET PO SCH (08:17)
[2017-12-27] MEDS: ONDANSETRON ODT 4 MG TABLET PO PRN (10:50)
[2017-12-27] MEDS: ALPRAZolam 0.5 MG TABLET PO SCH (10:50)
== END 2017-12-27 11:45 | disposition home or self-care (01) | DRG 698 ==
LOC: ED 12:46 → ICU 19:18
PROVIDERS: ADMIT Internal Medicine; ATTEND Internal Medicine

== ENCOUNTER 2020-06-11 13:27 | Inpatient (IN) ==
[2020-06-11] MEDS ORDERED: ONDANSETRON 4 MG/2 ML VIAL IV ONE (14:19)
[2020-06-11] MEDS ORDERED: 0.9 % SODIUM CHLORIDE 500 ML IV ONE (14:19)
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
[2020-06-11 15:44] LABS: POC Creatinine 2.4 mg/dL (0.6-1.2)
[2020-06-11] MEDS: HYDROmorphone 0.5 MG/0.5 ML SYRINGE IV PRN ×2 (15:56→16:50)
[2020-06-11 16:47] LABS: ALT/SGPT 8 U/L (<40); AST/SGOT 16 U/L (<32); Albumin 3.1 gm/dL (3.2-5.2); Albumin/Globulin Ratio 0.9 (1.0-2.3); Alkaline Phosphatase 132 U/L (39-117); Basophils # (Auto) 0.04 K/mcL (0.00-0.20); Basophils % (Auto) 0.3 % (0.0-2.0); Bilirubin,Total 0.2 mg/dL (0.1-1.0); Blood Urea Nitrogen 49 mg/dL (8-23); Calcium 8.4 mg/dL (8.6-10.4); Carbon Dioxide 19 mmol/L (22-30); Chloride 106 mmol/L (96-108); Eosinophils # (Auto) 0.25 K/mcL (0.00-0.70); Eosinophils % (Auto) 2.2 % (0.0-7.0); Globulin 3.6 gm/dL (2.2-3.7); Glomerular Filtration Rate 25; Glucose 123 mg/dL (70-105); Hematocrit 38.7 % (36.0-48.0); Hemoglobin 12.6 g/dL (12.0-15.0); Lymphocytes # (Auto) 1.74 K/mcL (1.50-4.80); Lymphocytes % (Auto) 15.1 % (15.0-49.0); Mean Cell Volume 93.7 fL (80.0-100.0); Mean Corpuscular HGB Conc 32.6 g/dL (31.0-36.0); Mean Platelet Volume 10.5 fL (7.4-10.4); Monocytes # (Auto) 0.58 K/mcL (0.10-0.90); Neutrophils % (Auto) 77.4 % (38.0-78.0); Platelet Count 224 K/mcL (140-440); RBC 4.13 M/mcL (4.00-5.20); Red Cell Distribution Width 12.9 % (11.5-14.5); WBC 11.5 K/mcL (4.5-11.0)
--- NOTE | 2020-06-11 19:02 | XRay Report ---
CLINICAL INFORMATION: R shoulder pain COMPARISON: None. FINDINGS: The humeral head is superiorly subluxed suggesting chronic rotator cuff tear/impingement. The distal 1 cm the clavicle is absent likely related old trauma or surgery. Moderate glenohumeral degeneration noted. IMPRESSION: Moderate superior humeral subluxation typically indicative of chronic rotator cuff/impingement. Moderate glenohumeral degeneration. Distal 1 cm the clavicle absent typically related to old trauma or surgery Interpreted and Authenticated by: Jeremías Bernal 06/11/20
--- NOTE | 2020-06-11 19:08 | XRay Report ---
CLINICAL INFORMATION: FALL COMPARISON: 04/14/2018 FINDINGS: Heart size, mediastinum and pulmonary vessels are normal. There is minor bibasilar atelectasis. No effusions or evidence of pneumothorax. No fracture. Chronic bilateral humeral head subluxation suggesting rotator cuff tear/impingement. IMPRESSION: Minor bibasilar atelectasis Chronic bilateral shoulder impingement Interpreted and Authenticated by: Jeremías Bernal 06/11/20
[2020-06-11] MEDS ORDERED: IPRATROPIUM/ALBUTEROL 3 ML AMPUL.NEB NEB ONE (19:32)
[2020-06-11] MEDS ORDERED: 0.9 % SODIUM CHLORIDE 250 ML IV ONE (19:36)
--- NOTE | 2020-06-11 20:56 | Cat Scan Report ---
CLINICAL INFORMATION: Trauma COMPARISON: 12/23/2017 TECHNIQUE: 0.625 mm helical slices were obtained from the mid heart through the subtrochanteric regions. Following reconstruction, 2.5 mm sagittal, coronal and axial reformatted images were processed and reviewed at bone and soft tissue windows.The exam was performed using radiation dose optimization techniques including, but not limited to, automated exposure control, adjustment of the mA and/or kV according to patient size and use of iterative reconstruction technique. FINDINGS: Lung bases show the heart is mildly enlarged with lipomatous infiltration of the interatrial septum. Marked dilatation of the distal thoracic esophagus with small hiatal hernia again seen. Moderate patchy airspace disease in the posterior right lower lobe likely represent atelectasis. Minor atelectasis in the left lower lobe. No effusion. Abdominal images show noncontrasted liver is normal in size, configuration and attenuation without focal lesion. The gallbladder is surgically absent. Common bile duct is normal: 5 mm. Noncontrasted pancreas, spleen and adrenal glands are unremarkable. Marked bilateral renal atrophy, compatible with end-stage renal failure, is seen as before: the right kidney is 7.1 cm in length and the left kidney is 7 cm in length. Scattered renal scarring again noted. Pelvic images show urinary bladder is being decompressed by suprapubic catheter - no gross abnormality. Hysterectomy and oophorectomy changes noted. There is no free air or adenopathy. Massive (14 cm) right periumbilical hernia containing mesenteric fat and multiple loops of normal appearing small bowel including an anastomotic segment. This is increased in size dramatically from 12/23/2017 CT. At that time, it was only 5 cm. A 4 cm umbilical hernia containing only mesenteric fat is only slightly larger. Left lumbar hernia is unchanged in size - it contains no bowel on today's exam only free fluid. The stomach, duodenum and proximal jejunum are moderately dilated due to a long (8 cm (stricture in the anterior central mesenteric cavity best seen on sagittal reformatted image 101 and coronal reformatted image 68. The stricture leads into the entry site of the large right periumbilical hernia. The distal small bowel is relatively decompressed. Normal amounts of stool are present within the colon, however. Very severe rectal prolapse descending 14 cm below the PCL with surrounding perirectal fat. The distal sigmoid colon migrated with the prolapse. Small amount of ascites is seen within the prolapsed perirectal fat, the left lumbar hernia and the right mid mesenteric cavity Bone windows show grade 1 L4-5 spondylolisthesis. IMPRESSION: 1. 8 cm stricture in the mid jejunum resulting in partial small bowel obstruction. Distal to the stricture, there is a 14 cm right periumbilical hernia containing multiple loops of nonincarcerated appearing small bowel. The small bowel within the hernia sac and distal small bowel are relatively decompressed Small amount of free fluid in the mesenteric cavity may represent early third spacing. 2. 4 cm periumbilical containing mesenteric fat - slightly larger on prior exam. 3. 8 cm left lumbar hernia unchanged in size 4. Massive rectal prolapse descending 14 cm below the PCL. It contains the sigmoid colon and a small amount of free fluid. 5. Small hiatal hernia with marked esophageal dilatation - stable. 6. Marked bilateral renal atrophy compatible with end-stage renal failure stable 7. Small region of airspace disease right lower lobe more likely atelectasis than infiltrate. Interpreted and Authenticated by: Jeremías Bernal 06/11/20
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
[2020-06-11] MEDS ORDERED: ONDANSETRON 4 MG/2 ML VIAL IV PRN (21:42)
[2020-06-11] MEDS ORDERED: IBUPROFEN 600 MG TABLET PO PRN (21:42)
[2020-06-11] MEDS ORDERED: oxyCODONE HCL 5 MG TABLET PO PRN (21:42)
[2020-06-11] MEDS ORDERED: ACETAMINOPHEN 325 MG TABLET PO PRN (21:42)
[2020-06-11] MEDS ORDERED: HYDROmorphone 1 MG/ML SYRINGE IV PRN (21:42)
[2020-06-11] MEDS ORDERED: 0.9 % SODIUM CHLORIDE 1,000 ML IV SCH (21:45)
[2020-06-12] MEDS: 0.9 % SODIUM CHLORIDE 10 ML SYRINGE IV SCH ×4 (00:09→21:36)
[2020-06-12] MEDS: NALOXONE HCL 0.4 MG/ML VIAL IV PRN ×2 (06:25→06:45)
[2020-06-12] MEDS ORDERED: 0.9 % SODIUM CHLORIDE 1,000 ML IV ONE ×2 (06:30→07:30)
[2020-06-12] MEDS ORDERED: NOREPINEPHRINE BITARTRATE 16 MG in 0.9 % SODIUM CHLORIDE 234 ML IV SCH (06:45)
[2020-06-12] MEDS ORDERED: 0.9 % SODIUM CHLORIDE 250 ML IV SCH (06:45)
[2020-06-12 06:48] LABS: Basophils # (Auto) 0.05 K/mcL (0.00-0.20); Basophils % (Auto) 0.3 % (0.0-2.0); Eosinophils # (Auto) 0.01 K/mcL (0.00-0.70); Eosinophils % (Auto) 0.1 % (0.0-7.0); Hematocrit 50.4 % (36.0-48.0); Hemoglobin 16.3 g/dL (12.0-15.0); Lymphocytes # (Auto) 0.68 K/mcL (1.50-4.80); Lymphocytes % (Auto) 4.5 % (15.0-49.0); Mean Cell Volume 94.7 fL (80.0-100.0); Mean Corpuscular HGB Conc 32.3 g/dL (31.0-36.0); Monocytes # (Auto) 0.62 K/mcL (0.10-0.90); Monocytes % (Auto) 4.1 % (1.0-12.0); Platelet Count 260 K/mcL (140-440); RBC 5.32 M/mcL (4.00-5.20); Red Cell Distribution Width 13.3 % (11.5-14.5); WBC 15.1 K/mcL (4.5-11.0)
[2020-06-12] MEDS ORDERED: NOREPINEPHRINE BITARTRATE 4 MG/4 ML VIAL IV ONE (06:55)
[2020-06-12 07:31] LABS: ALT/SGPT 10 U/L (<40); AST/SGOT 22 U/L (<32); Albumin 3.3 gm/dL (3.2-5.2); Alkaline Phosphatase 130 U/L (39-117); Bilirubin,Direct < 0.2 mg/dL (<0.3); Bilirubin,Total 0.4 mg/dL (0.1-1.0); Blood Urea Nitrogen 51 mg/dL (8-23); Calcium 8.3 mg/dL (8.6-10.4); Carbon Dioxide 17 mmol/L (22-30); Chloride 103 mmol/L (96-108); Globulin 3.3 gm/dL (2.2-3.7); Glomerular Filtration Rate 15; Glucose 114 mg/dL (70-105); Lactate Dehydrogenase 191 U/L (135-225); Phosphorous 5.7 mg/dL (2.5-4.5); Triglycerides 86 mg/dL (<150); Uric Acid 7.7 mg/dL (2.5-8.0)
--- NOTE | 2020-06-12 08:04 | Procedure Note ---
PROC Central Line Placement Right IJ: Consent obtained: verbal consent Date of Procedure: 06/12/20 Time out performed: Yes Patient placed on monitor/pulse ox: Yes MD prep: mask, sterile gown, sterile gloves and cap Central line prep: 2% Chlorhexidine scrub Local anesthesia used: lidocaine 1% Amount of anesthesia used (mls): 3 Ultrasound used for placement: Yes Central line lumen inserted: quad and 16 cm Post procedure: sutured in place and sterile dressing applied Patient tolerated procedure: well Complications: none
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
[2020-06-12] MEDS ORDERED: SODIUM BICARBONATE 50 MEQ/50 ML VIAL IV ONE ×2 (08:30→13:15)
[2020-06-12] MEDS ORDERED: 0.9 % SODIUM CHLORIDE 1,000 ML IV SCH (08:30)
[2020-06-12] MEDS: 0.9 % SODIUM CHLORIDE 1,000 ML IV SCH ×3 (08:31→22:49)
[2020-06-12] MEDS ORDERED: HEPARIN 5,000 UNIT/ML VIAL SQ SCH (09:00)
[2020-06-12] MEDS ORDERED: DOCUSATE SODIUM 100 MG CAPSULE PO SCH (09:00)
[2020-06-12] MEDS ORDERED: PIPERACILLIN SODIUM/TAZOBACTAM 3.375 GM in DEXTROSE 5% IN WATER 50 ML IV SCH ×2 (10:00→16:00)
[2020-06-12 10:10] LABS: Band Neutrophils % 43 % (0-10); Lymphocytes % 4 % (15-49); Monocytes % (Manual) 3 % (1-12); Platelet Estimate NORMAL (Normal); RBC Morphology NORMAL (Normal); Segmented Neutrophils % 50 % (38-78)
[2020-06-12] MEDS ORDERED: DEXAMETHASONE 10 MG/ML VIAL ONE (10:15)
[2020-06-12] MEDS ORDERED: MIDAZOLAM 5 MG/5 ML VIAL ONE (10:15)
[2020-06-12] MEDS ORDERED: LIDOCAINE HCL/PF 100 MG/5 ML SYRINGE IV ONE (10:15)
[2020-06-12] MEDS ORDERED: fentaNYL 100 MCG/2 ML VIAL IV ONE (10:15)
[2020-06-12] MEDS ORDERED: PHENYLEPHRINE 10 MG/ML VIAL ONE (10:15)
[2020-06-12] MEDS ORDERED: GLYCOPYRROLATE 0.2 MG/ML VIAL IV ONE (10:15)
[2020-06-12] MEDS ORDERED: ROCURONIUM 10 MG/ML ML IV ONE (10:15)
[2020-06-12] MEDS ORDERED: KETAMINE 100 MG/ML ML ONE (10:15)
[2020-06-12] MEDS ORDERED: ESMOLOL 100 MG/10 ML VIAL IV ONE (10:15)
[2020-06-12] MEDS ORDERED: PROPOFOL 200 MG/20 ML VIAL IV ONE (10:15)
[2020-06-12] MEDS ORDERED: ONDANSETRON 4 MG/2 ML VIAL ONE (10:15)
[2020-06-12] MEDS ORDERED: fentaNYL 100 MCG/2 ML VIAL IV PRN ×2 (11:42→12:05)
[2020-06-12] MEDS ORDERED: ONDANSETRON 4 MG/2 ML VIAL IV PRN (11:42)
[2020-06-12] MEDS ORDERED: MEPERIDINE 25 MG/ML VIAL IV PRN ×2 (11:42→12:05)
[2020-06-12] MEDS ORDERED: IPRATROPIUM/ALBUTEROL 3 ML AMPUL.NEB NEB PRN (11:42)
[2020-06-12] MEDS ORDERED: LACTATED RINGERS 1,000 ML IV SCH ×2 (11:45→12:05)
[2020-06-12 11:52] LABS: Appearance,Urine CLEAR (Clear); Bacteria,Urine FEW /hpf (0); Bilirubin,Urine Negative (Negative); Color,Urine Yellow; Culture Indicated,Urine yes; Glucose,Urine (UA) Negative (Negative); Ketones,Urine Negative (Negative); Leukocyte Esterase,Urine 75 /ug (Negative); Mucus,Urine FEW /hpf; Nitrate,Urine Negative (Negative); Protein,Urine >=500 mg/dL (Negative); Specific Gravity,Urine 1.018 (1.000-1.035); Urine Blood 0.03 mg/dL (Negative); Urine RBC 3 /hpf (0-3); Urine Squamous Epithelial Cell 0 /hpf (0-4); Urine WBC 15 /hpf (0-4); Urobilinogen,Urine Negative
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
--- NOTE | 2020-06-12 11:56 | Operative Note ---
Brief Operative Note Date of procedure: 06/12/20 Pre-op diagnosis: Possible bowel ischemia Post-op diagnosis: other (Incarcerated incisional hernia with small perforation likely secondary to trauma from her previous fall) Procedure: Exploratory laparotomy, abdominal washout, small bowel resection Grafts/Implants: No Anesthesia: GETA Findings: Bowel perforation without signs of ischemia Complications: none Surgeon: Kirby Mcneil Estimated blood loss (cc): 50 Specimens Removed/Pathology: other (Portion of small bowel) Condition: critical Disposition: ICU Operative Note Operative Note: After risk benefits and alternatives to the procedure were discussed with the patient's son he verbalized understanding and desire to continue with the procedure. patient was taken from the intensive care unit to the main operating room. Patient was placed supine operative table. General anesthesia was induced over endotracheal tube. Patient's prepped and draped in standard sterile surgical fashion. Surgical timeout was taken to verify patient and procedure being performed. Midline laparotomy was made carried down through skin subtenons tissue. Upon en try into the abdominal cavity there was no evidence of free air, small amount of fluid. Large incisional hernia was encountered this was incorporated into the midline incision carefully and the bowel was reduced out of the abdominal contents. At this time small amount of succus was identified, the small bowel was ran from the ligament of Treitz down to the terminal ileum. There was small perforation in the bowel that was leading into the incarcerated hernia without any other evidences of bowel injury at that time. The perforation was isolated and the bowel proximal and distal was transected with an Endo PIA stapler. The mesentery was taken down with a LigaSure device. A [id number] functional end-to-end stapled anastomosis was performed and the enterotomy was closed with 2-0 PDS suture. The abdominal cavity was copiously irrigated and further exploration revealed that the NG tube is in the correct position and no further pathology was identified. The bowel was returned to the anatomical condition. The midline laparotomy incision was closed with a running 0 PDS suture incorporating the prior hernia defect into the abdominal closure. Subcutaneous tissue was copiously irrigated and closed with a running 2-0 Vicryl suture and then the skin was closed with surgical jessica. Xeroform, plain gauze and tape dressings were then applied. Patient was then transported intubated in guarded condition back to the intensive care unit.
[2020-06-12] MEDS ORDERED: PROPOFOL 1,000 MG in PREMIX 1 BAG IV SCH (12:00)
[2020-06-12] MEDS ORDERED: ALBUTEROL SULFATE 200 PUFF INHALER IH PRN (12:05)
[2020-06-12] MEDS ORDERED: NALOXONE HCL 0.4 MG/ML VIAL IV PRN (12:05)
[2020-06-12] MEDS ORDERED: HYDROmorphone 0.5 MG/0.5 ML SYRINGE IV PRN (12:05)
[2020-06-12] MEDS ORDERED: HYDROmorphone 1 MG/ML SYRINGE IV PRN (12:05)
[2020-06-12] MEDS ORDERED: HEPARIN/NS 500 ML IV ONE (12:16)
--- NOTE | 2020-06-12 13:02 | XRay Report ---
CLINICAL INFORMATION: ETT Placement COMPARISON: 06/12/2020 FINDINGS: Endotracheal tip is in satisfactory position 3.3 cm above the jonn. Right IJ line and NG tube remain in stable satisfactory position. The heart is mildly enlarged, but unchanged. Mediastinum and pulmonary vessels are normal. Small bibasilar infiltrates or atelectasis improving. No effusions IMPRESSION: Small regions of atelectasis or infiltrate both lung bases improving Endotracheal tube in satisfactory position. Interpreted and Authenticated by: Jeremías Bernal 06/12/20
[2020-06-12] MEDS: PROPOFOL 1,000 MG in PREMIX 1 BAG IV SCH (13:06)
--- NOTE | 2020-06-12 13:07 | XRay Report ---
CLINICAL INFORMATION: Central Line placement verification COMPARISON: 06/11/2020 FINDINGS: The heart is mildly enlarged. NG tube is malpositioned, bent in the esophagus with the tip redirected into the cervical esophagus. Right IJ line tip overlies the SVC in satisfactory position. Pulmonary vessels normal for technique. Mild bibasilar infiltrates or atelectasis unchanged. No effusion IMPRESSION: Mild bibasilar infiltrates or atelectasis unchanged. New right IJ line in satisfactory position. Malpositioned NG tube Interpreted and Authenticated by: Jeremías Bernal 06/12/20
--- NOTE | 2020-06-12 13:16 | XRay Report ---
CLINICAL INFORMATION: Nasogastric tube placement COMPARISON: None. FINDINGS: The NG tube is bent at the GE junction with the tip redirected into the thoracic esophagus obvious the film. Stomach and small bowel are mildly dilated compatible partial small bowel obstruction. No free air. IMPRESSION: Malpositioned NG tube. Partial small bowel obstruction pattern Interpreted and Authenticated by: Jeremías Bernal 06/12/20
--- NOTE | 2020-06-12 13:17 | XRay Report ---
CLINICAL INFORMATION: NG tube placement COMPARISON: 06/04/2020 0814 hours FINDINGS: NG tube overlies the gastric antrum. Stomach and upper small bowel appear partially decompressed. No free air. IMPRESSION: NG tube in satisfactory position. Slight decompression of partial small bowel obstruction Interpreted and Authenticated by: Jeremías Bernal 06/12/20
--- NOTE | 2020-06-12 13:18 | XRay Report ---
CLINICAL INFORMATION: NGT placement, pt pulled out last one COMPARISON: None. FINDINGS: NG tube overlies the gastric fundus. Stomach and upper small bowel are mildly dilated compatible with partial small bowel obstruction. No free air IMPRESSION: NG tube overlies the gastric fundus. Partial small bowel obstruction pattern Interpreted and Authenticated by: Jeremías Bernal 06/12/20
[2020-06-12] MEDS ORDERED: HEPARIN/NS 500 ML IV SCH (14:45)
[2020-06-12] MEDS ORDERED: ALBUMIN HUMAN 12.5 GM/50 ML BAG IV ONE (14:59)
[2020-06-12 16:05] LABS: Blood Urea Nitrogen 53 mg/dL (8-23); Calcium 7.3 mg/dL (8.6-10.4); Carbon Dioxide 16 mmol/L (22-30); Chloride 108 mmol/L (96-108); Glomerular Filtration Rate 16; Glucose 127 mg/dL (70-105)
[2020-06-12] MEDS ORDERED: SODIUM BICARBONATE VIAL 150 MEQ in DEXTROSE 5% IN WATER 850 ML IV SCH (16:30)
[2020-06-12] MEDS ORDERED: SODIUM BICARBONATE 50 MEQ/50 ML VIAL ONE (17:50)
[2020-06-12] MEDS ORDERED: SODIUM BICARBONATE VIAL 150 MEQ in WATER FOR INJECTION,STERILE 1,000 ML IV ONE (18:30)
[2020-06-12] MEDS ORDERED: SENNOSIDES 1 TABLET PO SCH (21:00)
[2020-06-12] MEDS ORDERED: FAMOTIDINE/PF 20 MG/2 ML VIAL IV SCH ×2 (21:00)
[2020-06-12] MEDS ORDERED: CHLORHEXIDINE GLUCONATE 1 ML ORAL.SOL SWABMOUTH SCH (21:00)
[2020-06-12] MEDS: PIPERACILLIN SODIUM/TAZOBACTAM 2.25 GM in DEXTROSE 5% IN WATER 50 ML IV SCH (21:35)
[2020-06-12] MEDS: HEPARIN 5,000 UNIT/ML VIAL SQ SCH (21:35)
[2020-06-12] MEDS: CHLORHEXIDINE GLUCONATE 1 ML ORAL.SOL SWABMOUTH SCH (21:36)
[2020-06-12] MEDS: NOREPINEPHRINE BITARTRATE 16 MG in 0.9 % SODIUM CHLORIDE 234 ML IV SCH (23:13)
[2020-06-13] MEDS: 0.9 % SODIUM CHLORIDE 1,000 ML IV SCH ×3 (00:12→15:43)
[2020-06-13] MEDS: HYDROmorphone 1 MG/ML SYRINGE IV PRN ×2 (02:17→06:57)
[2020-06-13] MEDS ORDERED: HYDROmorphone 1 MG/ML SYRINGE ONE (02:24)
[2020-06-13] MEDS: PIPERACILLIN SODIUM/TAZOBACTAM 2.25 GM in DEXTROSE 5% IN WATER 50 ML IV SCH ×3 (05:26→22:28)
[2020-06-13] MEDS: 0.9 % SODIUM CHLORIDE 10 ML SYRINGE IV SCH ×3 (05:27→22:28)
[2020-06-13 06:52] LABS: Hematocrit 41.6 % (36.0-48.0); Hemoglobin 13.4 g/dL (12.0-15.0); Mean Cell Volume 93.9 fL (80.0-100.0); Mean Corpuscular HGB Conc 32.2 g/dL (31.0-36.0); Mean Platelet Volume 11.1 fL (7.4-10.4); Platelet Count 214 K/mcL (140-440); RBC 4.43 M/mcL (4.00-5.20); Red Cell Distribution Width 13.5 % (11.5-14.5)
[2020-06-13 07:51] LABS: ALT/SGPT 17 U/L (<40); AST/SGOT 41 U/L (<32); Albumin 2.4 gm/dL (3.2-5.2); Albumin/Globulin Ratio 0.8 (1.0-2.3); Alkaline Phosphatase 84 U/L (39-117); Bilirubin,Direct 0.5 mg/dL (<0.3); Bilirubin,Total 0.8 mg/dL (0.1-1.0); Blood Urea Nitrogen 62 mg/dL (8-23); Calcium 7.3 mg/dL (8.6-10.4); Carbon Dioxide 20 mmol/L (22-30); Chloride 107 mmol/L (96-108); Globulin 3.1 gm/dL (2.2-3.7); Glomerular Filtration Rate 14; Glucose 101 mg/dL (70-105); Lactate Dehydrogenase 191 U/L (135-225); Phosphorous 6.3 mg/dL (2.5-4.5); Triglycerides 123 mg/dL (<150); Uric Acid 7.9 mg/dL (2.5-8.0)
--- NOTE | 2020-06-13 08:01 | Internal Med Progress Note ---
SUBJECTIVE Subjective Patient information: Note initiated : 06/13/20 at 7:57 am Service Date, if different from initiated Date: [] Patient: Anita Casas 69 y/o F admitted on 06/12/20 for Fall, Low Abd Pain. Chief Complaint: [] Interval history: History of present illness: Presents the ED with fall and lower abdominal pain. She says she was doing relatively well until around the time she fell became very weak complained of abdominal pain bloating. She had some vomiting. She takes morphine for chronic pain took that prior. Complaint feeling her legs being weak and typically is a walker. Is generalized weakness. But does not complain of any chest pain. She has chronic cough and shortness of breath and is on oxygen. But no change. Abdominal pain is diffuse all over crampy and sharp. Initial labs are unremarkable. Work-up in the ED revealed how appear to be a small bowel obstruction. Surgeon was contacted. Patient is fairly unremarkable overnight but then became unresponsive on the floor and with the systolic blood pressure in the 60s. She was bolused with 1250 cc which brought her blood pressure back up however she started dipping again was put on Levophed another liter 1500 cc given. Then we lost IV access and a central line was placed. She is awake and answering questions though somewhat lethargic. 06/13 Patient did not show much improvement overnight. Urine output remains poor. Renal function slightly worse. 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 We will continue to hold and attempt weaning trial. Still requiring vasopressors, have been able to titrate down some overnight. Spent some time with her son the other day discussing her current state of hea lth and the guarded prognosis. He seemed to understand. No bowel movement per nursing. Unable to gather review of systems given intubation status. Constitutional Vitals: Vital Signs Temp Pulse Resp BP Pulse Ox 97.7 F 139 H 22 125/64 94 06/13/20 00:00 06/13/20 07:42 06/13/20 07:48 06/13/20 07:31 06/13/20 07:48 Period Temp Pulse Resp BP Sys/Santizo Pulse Ox Last 24 Hr 97.2 F-98 F 115-141 13-47 60-151/35-127 89-100 Intake and Output 06/12/20 06/13/20 06/13/20 21:59 05:59 13:59 Intake Total 736 64 45 Output Total 143 74 11 Balance 593 -10 34 Weight 112.763 kg Intake & Output: Intake & Output 06/12/20 06/13/20 06/13/20 21:59 05:59 13:59 Intake Total 736 64 45 Output Total 143 74 11 Balance 593 -10 34 Weight 112.763 kg Intake: IV 736 64 45 Sodium Chloride 0.9% 1,000 ml @ 596 125 mls/hr IV .Q8H [facility] Rx#: [id number] Levophed 16 mg In Sodium 88 Chloride 0.9% 234 ml @ 10 MCG/ MIN 9.375 mls/hr IV Q24H [facility] Rx #:[id number] Zosyn 2.25 gm In Dextrose 5% in 50 Water 50 ml @ 100 mls/hr IV Q8H [facility] Rx#:[id number] Diprivan 1,000 mg In Premix 1 2 14 45 Bag @ 5 MCG/KG/MIN 3.202 mls/hr IV .Q24H [facility] Rx#:[id number] Tube Feeding 0 Output: Urine Catheter Amount 143 74 11 Other: Urine Appearance Clear Cloudy Cloudy Suprapubic Clear Cloudy Urine Color Dark Yellow Dark Yellow Dark Yellow Suprapubic Dark Yellow Dark Yellow Urine Odor Normal Normal Exam: General: Sedated, no acute Distress, obese Eyes/N/T: PERRL, Head/Neck: neck supple, CV: RRR, No murmurs, Pulm: Clear b/l, no wheezing/rhonchi/rales Abd: soft, decreased bowel sounds, Ext: no clubbing/cyanosis, 1+ b/l LE edema Neuro: Sedated on the vent but does move extremities spontaneously. Does grimace to pain. Skin: warm/dry OBJ DATA Labs CBC & Chem 7: 06/13/20 05:08 06/13/20 05:08 Labs: Abnormal Lab Results 06/13/20 06/13/20 06/13/20 05:09 05:08 05:08 WBC 22.0 H RBC Hgb Hct MPV 11.1 H Neut % (Auto) Lymph % (Auto) Lymph # (Auto) Band Neutrophils % Lymphocytes % Absolute Neutrophils Potassium 5.5 H Carbon Dioxide 20 L Anion Gap BUN 62 H Creatinine 3.3 H POC Creatinine Glucose Calcium 7.3 L Phosphorus 6.3 H* Magnesium 1.5 L Direct Bilirubin 0.5 H GGT 54 H AST 41 H Alkaline Phosphatase Total Protein 5.5 L Albumin 2.4 L Albumin/Globulin Ratio 0.8 L Lipase Procalcitonin 47.82 H Urine Protein Ur Leukocyte Esterase Urine WBC Urine Bacteria Urine Mucus 06/12/20 06/12/20 06/12/20 15:10 10:50 05:30 WBC RBC Hgb Hct MPV Neut % (Auto) Lymph % (Auto) Lymph # (Auto) Band Neutrophils % Lymphocytes % Absolute Neutrophils Potassium 5.3 H Carbon Dioxide 16 L Anion Gap BUN 53 H Creatinine 2.9 H POC Creatinine Glucose 127 H Calcium 7.3 L Phosphorus Magnesium Direct Bilirubin GGT AST Alkaline Phosphatase Total Protein Albumin Albumin/Globulin Ratio Lipase Procalcitonin 19.53 H Urine Protein >=500 A Ur Leukocyte Esterase 75 A Urine WBC 15 H Urine Bacteria Few A Urine Mucus Few A 06/12/20 06/12/20 06/12/20 05:30 05:30 05:30 WBC 15.1 H RBC 5.32 H Hgb 16.3 H Hct 50.4 H MPV 11.0 H Neut % (Auto) 91.0 H Lymph % (Auto) 4.5 L Lymph # (Auto) 0.68 L Band Neutrophils % 43 H Lymphocytes % 4 L Absolute Neutrophils 13.78 H Potassium 5.3 H Carbon Dioxide 17 L Anion Gap 17.0 H BUN 51 H Creatinine 3.0 H POC Creatinine Glucose 114 H Calcium 8.3 L Phosphorus 5.7 H Magnesium Direct Bilirubin GGT 66 H AST Alkaline Phosphatase 130 H Total Protein Albumin Albumin/Globulin Ratio Lipase Procalcitonin Urine Protein Ur Leukocyte Esterase Urine WBC Urine Bacteria Urine Mucus 06/11/20 06/11/20 15:30 15:30 WBC 11.5 H RBC Hgb Hct MPV 10.5 H Neut % (Auto) Lymph % (Auto) Lymph # (Auto) Band Neutrophils % Lymphocytes % Absolute Neutrophils 8.91 H Potassium Carbon Dioxide 19 L Anion Gap BUN 49 H Creatinine 2.0 H POC Creatinine 2.4 H Glucose 123 H Calcium 8.4 L Phosphorus Magnesium Direct Bilirubin GGT AST Alkaline Phosphatase 132 H Total Protein Albumin 3.1 L Albumin/Globulin Ratio 0.9 L Lipase 130 H Procalcitonin Urine Protein Ur Leukocyte Esterase Urine WBC Urine Bacteria Urine Mucus Meds: Medications Albuterol Sulfate (Albuterol Sulfate 200 Puff Inhaler) 2 puff IH Q4-6HP PRN PRN Reason: shortness of breath or wheezin Chlorhexidine Gluconate (Chlorhexidine Gluconate 1 Ml Oral.Ashley) 15 ml SWABMOUTH BID [facility] Last Admin: 06/12/20 21:36 Dose: 15 ml Documented by: Famotidine (Famotidine/Pf 20 Mg/2 Ml Vial) 20 mg IV QHS [facility] Heparin Sodium (Porcine) (Heparin 5,000 Unit/Ml Vial) 5,000 unit SQ Q12 [facility] Last Admin: 06/12/20 21:35 Dose: 5,000 unit Documented by: Hydromorphone HCl (Hydromorphone 0.5 Mg/0.5 Ml Syringe) 0.5 mg IV Q15MIN PRN; Protocol PRN Reason: Per Pain Protocol Hydromorphone HCl (Hydromorphone 1 Mg/Ml Syringe) 0.5 - 1 mg IV Q2HP PRN; Protocol PRN Reason: Per Pain Protocol Last Admin: 06/13/20 06:57 Dose: 1 mg Documented by: Norepinephrine Bitartrate 16 (mg/ Sodium Chloride) 250 mls @ 9.375 mls/hr IV Q24H [facility]; Protocol Last Admin: 06/12/20 23:13 Dose: 9 mcg/min, 8.438 mls/hr Documented by: Propofol 1,000 mg/ Premix 100 mls @ 3.202 mls/hr IV .Q24H [facility]; Protocol Last Titration: 06/13/20 07:30 Dose: 5 mcg/kg/min, 3.202 mls/hr Documented by: Piperacillin Sod/Tazobactam (Sod 2.25 gm/ Dextrose) 50 mls @ 100 mls/hr IV Q8H [facility] Last Admin: 06/13/20 05:26 Dose: 100 mls/hr Documented by: Sodium Chloride (Sodium Chloride 0.9%) 1,000 mls @ 125 mls/hr IV .Q8H [facility] Last Admin: 06/13/20 00:12 Dose: 125 mls/hr Documented by: Heparin Sodium/Sodium Chloride (Heparin/Ns) 500 mls @ 0 mls/hr IV .Q0M [facility]; Protocol Naloxone HCl (Naloxone Hcl 0.4 Mg/Ml Vial) 0.1 mg IV Q2MIN PRN PRN Reason: Opiate Reversal Sodium Chloride (0.9 % Sodium Chloride 10 Ml Syringe) 10 ml IV Q8 [facility] Last Admin: 06/13/20 05:27 Dose: 10 ml Documented by: A/P Narrative A/P Narrative: A: *SBO w/incarcerated hernia & small perforation: s/p Ex-lap washout SB resection (06/12) -high-risk mortality state *Septic Shock: 2/2 above -on vasopressors *Remained intubated post-op: *JUJU on CKD IV: was on HD in past no off, follows with Dr. Mcclain -suspect ATN *Metabolic Acidosis: 2/2 above, improving *Anemia, chronic: *Morbid obesity: *COPD (2L O2@home ): *Hypothyroidism: *Anxiety: *Suprapubic catheter chronic, neurogenic bladder: - *GERD: *Atelectasis P: -vent weaning trial -guarded prognosis, high risk mortality; had a discussion with son about current state -sbo/diet/ngt per surgeon -IVF, vasopressors (wean) -monitor UOP, may give lasix trial after bolus -IV zosyn -pending BC, UC difficult to interpret in setting of suprapubic cath and colonization -continue family discussions -clarify home meds -pt/ot when able -ppx: heparin/pepcid code status: full per family Time Spent With Patient Time: Total time spent is greater than 50% in coordination of care (as documented) at patient's floor/unit and/or counseling patient:
--- NOTE | 2020-06-13 08:04 | XRay Report ---
HISTORY: Intubated FINDINGS: Endotracheal tube, nasogastric tube and right internal jugular catheters remain well-positioned. There is no widening of the mediastinum pneumothorax. There are mild streaky opacities in both lung bases which could be atelectasis or inflammation. There are very small bilateral pleural effusions. The heart is partially obscured by the overlying diaphragm. Comparison with the prior exam from 06/12/20 shows improving aeration in the mid and upper lung [place]. IMPRESSION: Persistent atelectasis or inflammation in both lower lobes with improving aeration in the mid and upper lung [place] Interpreted and Authenticated by: Fransico Candelario 06/13/20
[2020-06-13] MEDS ORDERED: ALBUMIN HUMAN 12.5 GM/50 ML BAG IV ONE ×2 (08:07→15:00)
[2020-06-13 08:12] LABS: Band Neutrophils % 72 % (0-10); Lymphocytes % 6 % (15-49); Metamyelocytes % 4 %; Monocytes % (Manual) 5 % (1-12); Platelet Estimate NORMAL (Normal); RBC Morphology NORMAL (Normal); Segmented Neutrophils % 13 % (38-78)
[2020-06-13] MEDS ORDERED: SODIUM BICARBONATE VIAL 150 MEQ in DEXTROSE 5% IN WATER 850 ML IV SCH (08:15)
[2020-06-13] MEDS: MAGNESIUM SULFATE 8.12 MEQ in DEXTROSE 5% IN WATER 50 ML IV ONE ×2 (08:37→09:17)
[2020-06-13] MEDS: HEPARIN 5,000 UNIT/ML VIAL SQ SCH ×2 (08:53→21:26)
[2020-06-13] MEDS: CHLORHEXIDINE GLUCONATE 1 ML ORAL.SOL SWABMOUTH SCH ×2 (08:53→21:27)
[2020-06-13] MEDS ORDERED: LACTATED RINGERS 1,000 ML IV ONE (09:02)
--- NOTE | 2020-06-13 09:07 | General Surgery Progress Note ---
SUBJECTIVE Subjective Patient information: Note initiated : 06/13/20 at 9:05 am Service Date, if different from initiated Date: [] Patient: Anita Casas 69 y/o F admitted on 06/12/20 for Fall, Low Abd Pain. Chief Complaint: [] Interval history: Postop day #1 status post exploratory laparotomy with partial small bowel resection secondary to incarcerated and strangulated ventral hernia with bowel perforation. Patient remains on pressures overnight, continues with a base deficit, likely secondary to under resuscitation. Patient remains intubated sedated. Constitutional Vitals: Vital Signs Temp Pulse Resp BP Pulse Ox 97.2 F 136 H 24 H 112/66 96 06/13/20 08:01 06/13/20 08:08 06/13/20 08:08 06/13/20 08:01 06/13/20 08:08 Period Temp Pulse Resp BP Sys/Santizo Pulse Ox Last 24 Hr 97.2 F-98 F 115-141 13-42 60-151/35-127 89-100 Intake and Output 06/12/20 06/13/20 06/13/20 21:59 05:59 13:59 Intake Total 402 04 9848 Output Total 143 74 26 Balance 593 -10 2169 Weight 248 lb 9.6 oz Intake & Output: Intake & Output 06/12/20 06/13/20 06/13/20 21:59 05:59 13:59 Intake Total 818 99 2330 Output Total 143 74 26 Balance 593 -10 2169 Weight 248 lb 9.6 oz Intake: IV 306 10 5375 Sodium Chloride 0.9% 1,000 ml @ 596 1000 125 mls/hr IV .Q8H [facility] Rx#: [id number] Sodium Chloride 0.9% 250 ml @ 250 20 mls/hr IV .[id number] [facility] Rx#: [id number] Levophed 16 mg In Sodium 88 Chloride 0.9% 234 ml @ 10 MCG/ MIN 9.375 mls/hr IV Q24H [facility] Rx #:[id number] Zosyn 2.25 gm In Dextrose 5% in 50 50 Water 50 ml @ 100 mls/hr IV Q8H [facility] Rx#:[id number] Diprivan 1,000 mg In Premix 1 2 14 45 Bag @ 5 MCG/KG/MIN 3.202 mls/hr IV .Q24H [facility] Rx#:[id number] Sodium Bicarbonate Vial 150 Meq 850 In Dextrose 5% in Water 850 ml @ 150 mls/hr IV Q20H [facility] Rx#: [id number] Tube Feeding 0 0 Output: Urine Catheter Amount 143 74 26 Other: Urine Appearance Clear Cloudy Clear Suprapubic Clear Cloudy Urine Color Dark Yellow Dark Yellow Bright Yellow Suprapubic Dark Yellow Dark Yellow Urine Odor Normal Normal Exam: Sedated, intubated GI/Abdominal GI/Abdominal exam: Present normal bowel sounds and soft; Absent distended Additional comments: Incision is clean dry and intact A/P Narrative A/P Narrative: Postop day #1 status post exploratory laparotomy with bowel resection. Patient is still requiring pressors, normotensive at this time. Continues to have a base deficit on ABGs. 1 L lactated Ringer's bolus, patient is currently under resuscitated, tachycardic, decreased urine output and persistent base deficit. We will continue to follow blood pressure, recommend weaning pressors as soon as possible due to risk of anastomosis. Time Spent With Patient Time: Total time spent is greater than 50% in coordination of care (as documented) at patient's floor/unit and/or counseling patient:
[2020-06-13] MEDS: BUDESONIDE 0.5 MG/2 ML AMPUL.NEB NEB SCH ×2 (09:15→21:15)
[2020-06-13] MEDS ORDERED: METOPROLOL TARTRATE 5 MG/5 ML VIAL IV ONE ×3 (09:18→23:22)
[2020-06-13] MEDS ORDERED: FUROSEMIDE 100 MG/10 ML VIAL IV ONE (10:05)
[2020-06-13 16:37] LABS: Blood Urea Nitrogen 67 mg/dL (8-23); Calcium 7.3 mg/dL (8.6-10.4); Carbon Dioxide 24 mmol/L (22-30); Chloride 104 mmol/L (96-108); Glomerular Filtration Rate 11; Glucose 178 mg/dL (70-105)
[2020-06-13] MEDS ORDERED: IPRATROPIUM/ALBUTEROL 3 ML AMPUL.NEB NEB PRN (16:48)
[2020-06-13] MEDS ORDERED: IPRATROPIUM/ALBUTEROL 3 ML AMPUL.NEB NEB SCH (17:00)
[2020-06-13] MEDS ORDERED: MAGNESIUM SULFATE 8.12 MEQ in DEXTROSE 5% IN WATER 50 ML IV ONE (17:30)
[2020-06-13] MEDS: IPRATROPIUM/ALBUTEROL 3 ML AMPUL.NEB NEB SCH (21:15)
[2020-06-13] MEDS: FAMOTIDINE/PF 20 MG/2 ML VIAL IV SCH (21:27)
[2020-06-13] MEDS ORDERED: fentaNYL 100 MCG/2 ML VIAL IV PRN (21:47)
[2020-06-13] MEDS ORDERED: fentaNYL 100 MCG/2 ML VIAL IV ONE (21:58)
[2020-06-14] MEDS: 0.9 % SODIUM CHLORIDE 1,000 ML IV SCH ×3 (00:27→17:15)
[2020-06-14] MEDS: PROPOFOL 1,000 MG in PREMIX 1 BAG IV SCH ×2 (05:26→13:56)
[2020-06-14] MEDS: NOREPINEPHRINE BITARTRATE 16 MG in 0.9 % SODIUM CHLORIDE 234 ML IV SCH (05:26)
[2020-06-14] MEDS: PIPERACILLIN SODIUM/TAZOBACTAM 2.25 GM in DEXTROSE 5% IN WATER 50 ML IV SCH ×3 (05:45→22:59)
[2020-06-14] MEDS: 0.9 % SODIUM CHLORIDE 10 ML SYRINGE IV SCH ×3 (05:46→20:33)
[2020-06-14 06:41] LABS: Basophils # (Auto) 0.05 K/mcL (0.00-0.20); Basophils % (Auto) 0.3 % (0.0-2.0); Eosinophils # (Auto) 0.03 K/mcL (0.00-0.70); Eosinophils % (Auto) 0.2 % (0.0-7.0); Hematocrit 30.9 % (36.0-48.0); Hemoglobin 10.2 g/dL (12.0-15.0); Lymphocytes # (Auto) 0.83 K/mcL (1.50-4.80); Lymphocytes % (Auto) 5.7 % (15.0-49.0); Mean Cell Volume 92.2 fL (80.0-100.0); Mean Platelet Volume 10.9 fL (7.4-10.4); Monocytes # (Auto) 0.33 K/mcL (0.10-0.90); Monocytes % (Auto) 2.3 % (1.0-12.0); Neutrophils % (Auto) 91.5 % (38.0-78.0); Platelet Count 140 K/mcL (140-440); RBC 3.35 M/mcL (4.00-5.20); Red Cell Distribution Width 13.7 % (11.5-14.5); WBC 14.5 K/mcL (4.5-11.0)
[2020-06-14 07:10] LABS: ALT/SGPT 23 U/L (<40); AST/SGOT 72 U/L (<32); Albumin 2.2 gm/dL (3.2-5.2); Albumin/Globulin Ratio 0.8 (1.0-2.3); Alkaline Phosphatase 69 U/L (39-117); Bilirubin,Direct 0.2 mg/dL (<0.3); Bilirubin,Total 0.5 mg/dL (0.1-1.0); Blood Urea Nitrogen 74 mg/dL (8-23); Calcium 7.6 mg/dL (8.6-10.4); Carbon Dioxide 23 mmol/L (22-30); Chloride 105 mmol/L (96-108); Globulin 2.8 gm/dL (2.2-3.7); Glomerular Filtration Rate 10; Glucose 93 mg/dL (70-105); Lactate Dehydrogenase 255 U/L (135-225); Phosphorous 5.8 mg/dL (2.5-4.5); Triglycerides 255 mg/dL (<150); Uric Acid 8.1 mg/dL (2.5-8.0)
--- NOTE | 2020-06-14 07:54 | Internal Med Progress Note ---
SUBJECTIVE Subjective Patient information: Note initiated : 06/14/20 at 7:52 am Service Date, if different from initiated Date: [] Patient: Anita Casas 69 y/o F admitted on 06/12/20 for Fall, Low Abd Pain. Chief Complaint: [] Interval history: History of present illness: Presents the ED with fall and lower abdominal pain. She says she was doing relatively well until around the time she fell became very weak complained of abdominal pain bloating. She had some vomiting. She takes morphine for chronic pain took that prior. Complaint feeling her legs being weak and typically is a walker. Is generalized weakness. But does not complain of any chest pain. She has chronic cough and shortness of breath and is on oxygen. But no change. Abdominal pain is diffuse all over crampy and sharp. Initial labs are unremarkable. Work-up in the ED revealed how appear to be a small bowel obstruction. Surgeon was contacted. Patient is fairly unremarkable overnight but then became unresponsive on the floor and with the systolic blood pressure in the 60s. She was bolused with 1250 cc which brought her blood pressure back up however she started dipping again was put on Levophed another liter 1500 cc given. Then we lost IV access and a central line was placed. She is awake and answering questions though somewhat lethargic. 3/ Patient did not show much improvement overnight. Urine output remains poor. Renal function slightly worse. She woke up last night being off sedation and was able to interact with director of exhibits but because of pulling at lines and agitation sedation was placed back on and then removed this morning. We will continue to hold and attempt weaning trial. Still requiring vasopressors, have been able to titrate down some overnight. Spent some time with her son the other day discussing her current state of hea lth and the guarded prognosis. He seemed to understand. No bowel movement per nursing. Unable to gather review of systems given intubation status. *I talked with her son Angus over the phone regarding her current critical state. After some time on the phone it was decided to change her CODE STATUS to DO NOT RESUSCITATE, with the caveat of continuing aggressive measures as are currently being undertaken. Continue mechanical ventilation. But if her situation declines or she has a cardiac event we will likely transition to comfort focus. 3/2 Good urine output last night. Creatinine a little bit worse likely has not peaked from probable ATN. No other significant changes. Unable to gather review of systems given current sedation on the vent Constitutional Vitals: Vital Signs Temp Pulse Resp BP Pulse Ox 98.4 F 109 H 23 H 125/48 97 06/14/20 04:00 06/14/20 07:06 06/14/20 07:06 06/14/20 07:06 06/14/20 07:31 Period Temp Pulse Resp BP Sys/Santizo Pulse Ox Last 24 Hr 97.2 F-98.8 F 107-136 16-35 88-128/42-67 95-99 Intake and Output 06/13/20 06/14/20 06/14/20 21:59 05:59 13:59 Intake Total 1261 1050 102 Output Total 392 890 340 Balance 869 160 -238 Weight 114.351 kg Intake & Output: Intake & Output 06/13/20 06/14/20 06/14/20 21:59 05:59 13:59 Intake Total 1261 1050 102 Output Total 392 890 340 Balance 869 160 -238 Weight 114.351 kg Intake: IV 1231 1050 102 Sodium Chloride 0.9% 1,000 ml @ 1000 125 mls/hr IV .Q8H [facility] Rx#: [id number] Magnesium Sulfate 8.12 Meq In 52 Dextrose 5% in Water 50 ml @ 52 mls/hr IV ONCE ONE Rx#: [id number] Levophed 16 mg In Sodium 131 Chloride 0.9% 234 ml @ 10 MCG/ MIN 9.375 mls/hr IV Q24H [facility] Rx #:[id number] Zosyn 2.25 gm In Dextrose 5% in 50 50 50 Water 50 ml @ 100 mls/hr IV Q8H [facility] Rx#:[id number] Sodium Bicarbonate Vial 150 Meq 1000 In Dextrose 5% in Water 850 ml @ 150 mls/hr IV Q20H [facility] Rx#: [id number] Oral 30 Tube Feeding 0 0 Output: Gastric Drainage 0 Right Nare 0 Urine Catheter Amount 392 890 340 Other: Urine Appearance Sediment Sediment Sediment Suprapubic Cloudy Sediment Urine Color Bright Yellow Pale Straw Suprapubic Bright Yellow Pale Urine Odor Strong Strong Exam: General: Sedated, no acute Distress, obese Eyes/N/T: PERRL, Head/Neck: neck supple, CV: RRR, No murmurs, Pulm: Clear b/l, no wheezing/rhonchi/rales Abd: soft, decreased bowel sounds, Ext: no clubbing/cyanosis, 1+ b/l LE edema Neuro: Sedated on the vent but does move extremities spontaneously. responds to touch, wiggled toes to command, Skin: warm/dry OBJ DATA Labs CBC & Chem 7: 06/14/20 05:06 06/14/20 05:06 Labs: Abnormal Lab Results 06/14/20 06/14/20 06/13/20 05:06 05:06 14:59 WBC 14.5 H RBC 3.35 L Hgb 10.2 L Hct 30.9 L MPV 10.9 H Neut % (Auto) 91.5 H Lymph % (Auto) 5.7 L Lymph # (Auto) 0.83 L Seg Neutrophils % Band Neutrophils % Lymphocytes % Absolute Neutrophils 13.28 H Potassium Carbon Dioxide Anion Gap BUN 74 H 67 H Creatinine 4.1 H 3.9 H POC Creatinine Glucose 178 H Uric Acid 8.1 H Calcium 7.6 L 7.3 L Phosphorus 5.8 H Magnesium Direct Bilirubin GGT AST 72 H Alkaline Phosphatase Lactate Dehydrogenase 255 H Total Protein 5.0 L Albumin 2.2 L Albumin/Globulin Ratio 0.8 L Triglycerides 255 H Lipase Procalcitonin Urine Protein Ur Leukocyte Esterase Urine WBC Urine Bacteria Urine Mucus 06/13/20 06/13/20 06/13/20 05:09 05:08 05:08 WBC 22.0 H RBC Hgb Hct MPV 11.1 H Neut % (Auto) Lymph % (Auto) Lymph # (Auto) Seg Neutrophils % 13 L Band Neutrophils % 72 H Lymphocytes % 6 L Absolute Neutrophils Potassium 5.5 H Carbon Dioxide 20 L Anion Gap BUN 62 H Creatinine 3.3 H POC Creatinine Glucose Uric Acid Calcium 7.3 L Phosphorus 6.3 H* Magnesium 1.5 L Direct Bilirubin 0.5 H GGT 54 H AST 41 H Alkaline Phosphatase Lactate Dehydrogenase Total Protein 5.5 L Albumin 2.4 L Albumin/Globulin Ratio 0.8 L Triglycerides Lipase Procalcitonin 47.82 H Urine Protein Ur Leukocyte Esterase Urine WBC Urine Bacteria Urine Mucus 06/12/20 06/12/20 06/12/20 15:10 10:50 05:30 WBC RBC Hgb Hct MPV Neut % (Auto) Lymph % (Auto) Lymph # (Auto) Seg Neutrophils % Band Neutrophils % Lymphocytes % Absolute Neutrophils Potassium 5.3 H Carbon Dioxide 16 L Anion Gap BUN 53 H Creatinine 2.9 H POC Creatinine Glucose 127 H Uric Acid Calcium 7.3 L Phosphorus Magnesium Direct Bilirubin GGT AST Alkaline Phosphatase Lactate Dehydrogenase Total Protein Albumin Albumin/Globulin Ratio Triglycerides Lipase Procalcitonin 19.53 H Urine Protein >=500 A Ur Leukocyte Esterase 75 A Urine WBC 15 H Urine Bacteria Few A Urine Mucus Few A 06/12/20 06/12/20 06/12/20 05:30 05:30 05:30 WBC 15.1 H RBC 5.32 H Hgb 16.3 H Hct 50.4 H MPV 11.0 H Neut % (Auto) 91.0 H Lymph % (Auto) 4.5 L Lymph # (Auto) 0.68 L Seg Neutrophils % Band Neutrophils % 43 H Lymphocytes % 4 L Absolute Neutrophils 13.78 H Potassium 5.3 H Carbon Dioxide 17 L Anion Gap 17.0 H BUN 51 H Creatinine 3.0 H POC Creatinine Glucose 114 H Uric Acid Calcium 8.3 L Phosphorus 5.7 H Magnesium Direct Bilirubin GGT 66 H AST Alkaline Phosphatase 130 H Lactate Dehydrogenase Total Protein Albumin Albumin/Globulin Ratio Triglycerides Lipase Procalcitonin Urine Protein Ur Leukocyte Esterase Urine WBC Urine Bacteria Urine Mucus 06/11/20 06/11/20 15:30 15:30 WBC 11.5 H RBC Hgb Hct MPV 10.5 H Neut % (Auto) Lymph % (Auto) Lymph # (Auto) Seg Neutrophils % Band Neutrophils % Lymphocytes % Absolute Neutrophils 8.91 H Potassium Carbon Dioxide 19 L Anion Gap BUN 49 H Creatinine 2.0 H POC Creatinine 2.4 H Glucose 123 H Uric Acid Calcium 8.4 L Phosphorus Magnesium Direct Bilirubin GGT AST Alkaline Phosphatase 132 H Lactate Dehydrogenase Total Protein Albumin 3.1 L Albumin/Globulin Ratio 0.9 L Triglycerides Lipase 130 H Procalcitonin Urine Protein Ur Leukocyte Esterase Urine WBC Urine Bacteria Urine Mucus Meds: Medications Albuterol Sulfate (Albuterol Sulfate 200 Puff Inhaler) 2 puff IH Q4-6HP PRN PRN Reason: shortness of breath or wheezin Albuterol/Ipratropium (Ipratropium/Albuterol 3 Ml Ampul.Neb) 3 ml NEB Q4HP PRN PRN Reason: Shortness Of Breath Albuterol/Ipratropium (Ipratropium/Albuterol 3 Ml Ampul.Neb) 3 ml NEB Q12H [facility] Last Admin: 06/13/20 21:15 Dose: 3 ml Documented by: Budesonide (Budesonide 0.5 Mg/2 Ml Ampul.Neb) 0.5 mg NEB Q12 [facility] Last Admin: 06/13/20 21:15 Dose: 0.5 mg Documented by: Chlorhexidine Gluconate (Chlorhexidine Gluconate 1 Ml Oral.Ashley) 15 ml SWABMOUTH BID [facility] Last Admin: 06/13/20 21:27 Dose: 15 ml Documented by: Famotidine (Famotidine/Pf 20 Mg/2 Ml Vial) 20 mg IV QHS [facility] Last Admin: 06/13/20 21:27 Dose: 20 mg Documented by: Fentanyl (Fentanyl 100 Mcg/2 Ml Vial) 25 - 100 mcg IV Q1HP PRN; Protocol PRN Reason: Per Pain Protocol Heparin Sodium (Porcine) (Heparin 5,000 Unit/Ml Vial) 5,000 unit SQ Q12 [facility] Last Admin: 06/13/20 21:26 Dose: 5,000 unit Documented by: Hydromorphone HCl (Hydromorphone 0.5 Mg/0.5 Ml Syringe) 0.5 mg IV Q15MIN PRN; Protocol PRN Reason: Per Pain Protocol Hydromorphone HCl (Hydromorphone 1 Mg/Ml Syringe) 0.5 - 1 mg IV Q2HP PRN; Protocol PRN Reason: Per Pain Protocol Last Admin: 06/13/20 06:57 Dose: 1 mg Documented by: Norepinephrine Bitartrate 16 (mg/ Sodium Chloride) 250 mls @ 9.375 mls/hr IV Q24H [facility]; Protocol Last Admin: 06/14/20 05:26 Dose: Not Given Documented by: Propofol 1,000 mg/ Premix 100 mls @ 3.202 mls/hr IV .Q24H [facility]; Protocol Last Admin: 06/14/20 05:26 Dose: Not Given Documented by: Piperacillin Sod/Tazobactam (Sod 2.25 gm/ Dextrose) 50 mls @ 100 mls/hr IV Q8H [facility] Last Infusion: 06/14/20 06:29 Dose: Infused Documented by: Sodium Chloride (Sodium Chloride 0.9%) 1,000 mls @ 125 mls/hr IV .Q8H [facility] Last Admin: 06/14/20 00:27 Dose: 125 mls/hr Documented by: Heparin Sodium/Sodium Chloride (Heparin/Ns) 500 mls @ 0 mls/hr IV .Q0M [facility]; Protocol Naloxone HCl (Naloxone Hcl 0.4 Mg/Ml Vial) 0.1 mg IV Q2MIN PRN PRN Reason: Opiate Reversal Sodium Chloride (0.9 % Sodium Chloride 10 Ml Syringe) 10 ml IV Q8 [facility] Last Admin: 06/14/20 05:46 Dose: 10 ml Documented by: A/P Narrative A/P Narrative: A: *SBO w/incarcerated hernia & small perforation: s/p Ex-lap washout SB resection (06/12) -high-risk mortality state *Septic Shock: 2/2 above -vasopressors off (06/13) *Remained intubated post-op: failed weaning trial yesterday *JUJU on CKD IV with Oliguria: was on HD in past no off, follows with Dr. Mcclain -suspect ATN -UOP improved *Metabolic Acidosis: 2/2 above, improved *Anemia, chronic: *Morbid obesity: *COPD (2L O2@home): *Hypothyroidism: *Anxiety: *Suprapubic catheter chronic, neurogenic bladder: -champion changed this admit *GERD: *Atelectasis *High mortality risk: guarded prognosis P: -vent weaning trial -guarded prognosis, high risk mortality; had a discussion with son about current state -sbo/diet/ngt per surgeon -IVFs, nutrition -monitor UOP -nephro consult -IV zosyn -pending BC, UC difficult to interpret in setting of suprapubic cath and colonization -continue family discussions -clarify home meds -pt/ot when able -ppx: heparin/pepcid code status: DNR but continue current aggressive measures Time Spent With Patient Time: Total time spent is greater than 50% in coordination of care (as d ocumented) at patient's floor/unit and/or counseling patient:
--- NOTE | 2020-06-14 08:03 | XRay Report ---
HISTORY: Intubated, follow-up pulmonary infiltrates FINDINGS: Endotracheal tube, right internal jugular catheter and nasogastric tubes remain well-positioned. There is no pneumothorax or widening of the mediastinum. There are residual mild streaky infiltrates in both lung bases. Mid and upper lung montague are relatively clear. The pleural effusions continue to resolve. The infiltrates have not changed significantly from 06/13/20. The heart size remains normal. IMPRESSION: Residual mild atelectasis or inflammation in both lung bases Interpreted and Authenticated by: Fransico Candelario 06/14/20
[2020-06-14] MEDS: IPRATROPIUM/ALBUTEROL 3 ML AMPUL.NEB NEB SCH ×2 (08:17→20:30)
[2020-06-14] MEDS: BUDESONIDE 0.5 MG/2 ML AMPUL.NEB NEB SCH ×2 (08:17→20:30)
[2020-06-14] MEDS: CHLORHEXIDINE GLUCONATE 1 ML ORAL.SOL SWABMOUTH SCH ×2 (08:24→20:32)
[2020-06-14] MEDS: HEPARIN 5,000 UNIT/ML VIAL SQ SCH ×2 (08:24→20:32)
[2020-06-14 09:28] LABS: Band Neutrophils % 66 % (0-10); Lymphocytes % 8 % (15-49); Metamyelocytes % 4 %; Monocytes % (Manual) 5 % (1-12); Platelet Estimate NORMAL (Normal); RBC Morphology NORMAL (Normal); Segmented Neutrophils % 17 % (38-78)
[2020-06-14] MEDS ORDERED: NOREPINEPHRINE BITARTRATE 16 MG in 0.9 % SODIUM CHLORIDE 234 ML IV PRN (10:15)
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
--- NOTE | 2020-06-14 16:08 | General Surgery Progress Note ---
SUBJECTIVE Subjective Patient information: Note initiated : 06/14/20 at 4:06 pm Service Date, if different from initiated Date: [] Patient: Anita Casas 69 y/o F admitted on 06/12/20 for Fall, Low Abd Pain. Chief Complaint: [] Interval history: Patient seen and examined this morning, postop day #2 status post exploratory laparotomy with bowel resection for perforated incarcerated incisional hernia. Patient remains unabated this morning, however is off blood pressure medications. Constitutional Vitals: Vital Signs Temp Pulse Resp BP Pulse Ox 98.1 F 112 H 18 131/56 96 06/14/20 12:00 06/14/20 15:07 06/14/20 15:07 06/14/20 15:01 06/14/20 15:07 Period Temp Pulse Resp BP Sys/Santizo Pulse Ox Last 24 Hr 97.3 F-98.8 F 70-130 16-36 102-175/42-80 95-99 Intake and Output 06/14/20 06/14/20 06/14/20 05:59 13:59 21:59 Intake Total 1050 1085 Output Total 890 1470 320 Balance 160 -385 -320 Weight 252 lb 1.6 oz Patient Weight 06/15/20 05:59 Weight 252 lb 1.6 oz Intake & Output: Intake & Output 06/14/20 06/14/20 06/14/20 05:59 13:59 21:59 Intake Total 1050 1085 Output Total 890 1470 320 Balance 160 -385 -320 Weight 252 lb 1.6 oz Intake: IV 1050 1085 Sodium Chloride 0.9% 1,000 ml @ 1000 983 125 mls/hr IV .Q8H ERNST Rx#: [id number] Magnesium Sulfate 8.12 Meq In 52 Dextrose 5% in Water 50 ml @ 52 mls/hr IV ONCE ONE Rx#: [id number] Zosyn 2.25 gm In Dextrose 5% in 50 50 Water 50 ml @ 100 mls/hr IV Q8H ERNST Rx#:[id number] Tube Feeding 0 Output: Gastric Drainage 0 Right Nare 0 Urine Catheter Amount 890 1470 320 Other: Urine Appearance Sediment Sediment Suprapubic Sediment Urine Color Pale Straw Suprapubic Pale Urine Odor Strong Exam: Intubated, sedated GI/Abdominal GI/Abdominal exam: Present soft; Absent distended Additional comments: Incision is clean dry and intact A/P Narrative A/P Narrative: Patient progressing as expected. Continue to wean as tolerated. Cleared to start trickle tube feedings through NG tube. Time Spent With Patient Time: Total time spent is greater than 50% in coordination of care (as documented) at patient's floor/unit and/or counseling patient:
[2020-06-14] MEDS ORDERED: fentaNYL 100 MCG/2 ML VIAL IV PRN (16:23)
[2020-06-14] MEDS ORDERED: DEXMEDETOMIDINE 400 MCG in PREMIX 1 BAG IV SCH (16:30)
[2020-06-14] MEDS ORDERED: DEXMEDETOMIDINE 400 MCG in PREMIX 1 BAG IV PRN (17:30)
[2020-06-14] MEDS: HYDROmorphone 1 MG/ML SYRINGE IV PRN (19:12)
[2020-06-14] MEDS: 0.45 % SODIUM CHLORIDE 1,000 ML IV SCH (19:39)
[2020-06-14] MEDS ORDERED: diphenhydrAMINE 12.5 MG/5 ML ORAL.SOL PT PRN (20:10)
[2020-06-14] MEDS ORDERED: diphenhydrAMINE 12.5 MG/5 ML ORAL.SOL PT ONE (20:15)
[2020-06-14] MEDS: FAMOTIDINE/PF 20 MG/2 ML VIAL IV SCH (20:32)
[2020-06-14] MEDS ORDERED: MELATONIN 3 MG TABLET PO SCH (21:00)
[2020-06-15] MEDS: HYDROmorphone 1 MG/ML SYRINGE IV PRN (02:31)
[2020-06-15] MEDS: PIPERACILLIN SODIUM/TAZOBACTAM 2.25 GM in DEXTROSE 5% IN WATER 50 ML IV SCH ×3 (05:38→21:54)
[2020-06-15] MEDS: 0.9 % SODIUM CHLORIDE 10 ML SYRINGE IV SCH ×3 (05:39→21:53)
[2020-06-15 07:01] LABS: Hematocrit 30.6 % (36.0-48.0); Hemoglobin 10.1 g/dL (12.0-15.0); Mean Cell Volume 91.3 fL (80.0-100.0); Mean Platelet Volume 10.8 fL (7.4-10.4); Platelet Count 120 K/mcL (140-440); RBC 3.35 M/mcL (4.00-5.20); Red Cell Distribution Width 13.6 % (11.5-14.5); WBC 10.4 K/mcL (4.5-11.0)
--- NOTE | 2020-06-15 07:47 | Internal Med Progress Note ---
SUBJECTIVE Subjective Patient information: Note initiated : 06/15/20 at 7:44 am Service Date, if different from initiated Date: [] Patient: Anita Casas 69 y/o F admitted on 06/12/20 for Fall, Low Abd Pain. Chief Complaint: [] Interval history: History of present illness: Presents the ED with fall and lower abdominal pain. She says she was doing relatively well until around the time she fell became very weak complained of abdominal pain bloating. She had some vomiting. She takes morphine for chronic pain took that prior. Complaint feeling her legs being weak and typically is a walker. Is generalized weakness. But does not complain of any chest pain. She has chronic cough and shortness of breath and is on oxygen. But no change. Abdominal pain is diffuse all over crampy and sharp. Initial labs are unremarkable. Work-up in the ED revealed how appear to be a small bowel obstruction. Surgeon was contacted. Patient is fairly unremarkable overnight but then became unresponsive on the floor and with the systolic blood pressure in the 60s. She was bolused with 1250 cc which brought her blood pressure back up however she started dipping again was put on Levophed another liter 1500 cc given. Then we lost IV access and a central line was placed. She is awake and answering questions though somewhat lethargic. 3/ Patient did not show much improvement overnight. Urine output remains poor. Renal function slightly worse. She woke up last night being off sedation and was able to interact with web design specialist but because of pulling at lines and agitation sedation was placed back on and then removed this morning. We will continue to hold and attempt weaning trial. Still requiring vasopressors, have been able to titrate down some overnight. Spent some time with her son the other day discussing her current state of hea lth and the guarded prognosis. He seemed to understand. No bowel movement per nursing. Unable to gather review of systems given intubation status. *I talked with her son Angus over the phone regarding her current critical state. After some time on the phone it was decided to change her CODE STATUS to DO NOT RESUSCITATE, with the caveat of continuing aggressive measures as are currently being undertaken. Continue mechanical ventilation. But if her situation declines or she has a cardiac event we will likely transition to comfort focus. 3/2 Good urine output last night. Creatinine a little bit worse likely has not peaked from probable ATN. No other significant changes. 3/3 No sedation overnight other than 0.5 mg IV Dilaudid x2. She responds to touch and sternal rub partially opening her eyes. Has been off sedation since 06/13 but has had intermittent fentanyl or dilaudid. He was on tube feedings yesterday however she started having high residuals and increased NG output to that was on hold. Leukocytosis resolved. Renal function slightly improved. Unable to gather review of systems given current mental status state. Constitutional Vitals: Vital Signs Temp Pulse Resp BP Pulse Ox 99.1 F H 111 H 17 118/62 96 06/15/20 04:00 06/15/20 07:07 06/15/20 07:07 06/15/20 07:01 06/15/20 07:07 Period Temp Pulse Resp BP Sys/Santizo Pulse Ox Last 24 Hr 97.3 F-99.4 F 70-130 15-36 111-175/50-80 95-99 Intake and Output 06/14/20 06/15/20 06/15/20 21:59 05:59 13:59 Intake Total 1466 190 50 Output Total 1245 740 115 Balance 221 -550 -65 Weight 115.122 kg Intake & Output: Intake & Output 06/14/20 06/15/20 06/15/20 21:59 05:59 13:59 Intake Total 1466 190 50 Output Total 1245 740 115 Balance 221 -550 -65 Weight 115.122 kg Intake: IV 1346 50 50 Sodium Chloride 0.9% 1,000 ml @ 1296 125 mls/hr IV .Q8H ERNST Rx#: [id number] Zosyn 2.25 gm In Dextrose 5% in 50 50 50 Water 50 ml @ 100 mls/hr IV Q8H ERNST Rx#:[id number] Diprivan 1,000 mg In Premix 1 0 Bag @ 5 MCG/KG/MIN 3.202 mls/hr IV .Q24H ERNST Rx#:[id number] Tube Feeding 90 80 GI Tube Flush 30 60 Output: Urine Catheter Amount 1245 740 115 Other: Urine Appearance Clear Clear Mucous Threads Urine Color Straw Straw Exam: general: no acute Distress, obese Eyes/N/T: PERRL, Head/Neck: neck supple, CV: RRR, No murmurs, Pulm: Clear b/l, no wheezing/rhonchi/rales Abd: soft, decreased bowel sounds, Ext: no clubbing/cyanosis, 1+ b/l LE edema Neuro: on the vent w/o sedation, moves extremities and partially opens eyes to sternal rub and voice but otherwise no purposeful movement. Skin: warm/dry OBJ DATA Labs CBC & Chem 7: 06/15/20 05:00 06/15/20 05:00 Labs: Abnormal Lab Results 06/15/20 06/14/20 06/14/20 05:00 05:06 05:06 WBC RBC 3.35 L Hgb 10.1 L Hct 30.6 L Plt Count 120 L MPV 10.8 H Neut % (Auto) Lymph % (Auto) Lymph # (Auto) Seg Neutrophils % 17 L Band Neutrophils % 66 H Lymphocytes % 8 L Absolute Neutrophils Potassium Carbon Dioxide BUN 74 H Creatinine 4.1 H Glucose Uric Acid 8.1 H Calcium 7.6 L Phosphorus 5.8 H Magnesium Direct Bilirubin GGT AST 72 H Lactate Dehydrogenase 255 H Total Protein 5.0 L Albumin 2.2 L Albumin/Globulin Ratio 0.8 L Triglycerides 255 H Procalcitonin Urine Protein Ur Leukocyte Esterase Urine WBC Urine Bacteria Urine Mucus 06/14/20 06/13/20 06/13/20 05:06 14:59 05:09 WBC 14.5 H RBC 3.35 L Hgb 10.2 L Hct 30.9 L Plt Count MPV 10.9 H Neut % (Auto) 91.5 H Lymph % (Auto) 5.7 L Lymph # (Auto) 0.83 L Seg Neutrophils % Band Neutrophils % Lymphocytes % Absolute Neutrophils 13.28 H Potassium Carbon Dioxide BUN 67 H Creatinine 3.9 H Glucose 178 H Uric Acid Calcium 7.3 L Phosphorus Magnesium Direct Bilirubin GGT AST Lactate Dehydrogenase Total Protein Albumin Albumin/Globulin Ratio Triglycerides Procalcitonin 47.82 H Urine Protein Ur Leukocyte Esterase Urine WBC Urine Bacteria Urine Mucus 06/13/20 06/13/20 06/12/20 05:08 05:08 15:10 WBC 22.0 H RBC Hgb Hct Plt Count MPV 11.1 H Neut % (Auto) Lymph % (Auto) Lymph # (Auto) Seg Neutrophils % 13 L Band Neutrophils % 72 H Lymphocytes % 6 L Absolute Neutrophils Potassium 5.5 H 5.3 H Carbon Dioxide 20 L 16 L BUN 62 H 53 H Creatinine 3.3 H 2.9 H Glucose 127 H Uric Acid Calcium 7.3 L 7.3 L Phosphorus 6.3 H* Magnesium 1.5 L Direct Bilirubin 0.5 H GGT 54 H AST 41 H Lactate Dehydrogenase Total Protein 5.5 L Albumin 2.4 L Albumin/Globulin Ratio 0.8 L Triglycerides Procalcitonin Urine Protein Ur Leukocyte Esterase Urine WBC Urine Bacteria Urine Mucus 06/12/20 06/12/20 06/12/20 10:50 05:30 05:30 WBC RBC Hgb Hct Plt Count MPV Neut % (Auto) Lymph % (Auto) Lymph # (Auto) Seg Neutrophils % Band Neutrophils % 43 H Lymphocytes % 4 L Absolute Neutrophils Potassium Carbon Dioxide BUN Creatinine Glucose Uric Acid Calcium Phosphorus Magnesium Direct Bilirubin GGT AST Lactate Dehydrogenase Total Protein Albumin Albumin/Globulin Ratio Triglycerides Procalcitonin 19.53 H Urine Protein >=500 A Ur Leukocyte Esterase 75 A Urine WBC 15 H Urine Bacteria Few A Urine Mucus Few A Meds: Medications Albuterol Sulfate (Albuterol Sulfate 200 Puff Inhaler) 2 puff IH Q4-6HP PRN PRN Reason: shortness of breath or wheezin Albuterol/Ipratropium (Ipratropium/Albuterol 3 Ml Ampul.Neb) 3 ml NEB Q4HP PRN PRN Reason: Shortness Of Breath Albuterol/Ipratropium (Ipratropium/Albuterol 3 Ml Ampul.Neb) 3 ml NEB Q12H [facility] Last Admin: 06/14/20 20:30 Dose: 3 ml Documented by: Budesonide (Budesonide 0.5 Mg/2 Ml Ampul.Neb) 0.5 mg NEB Q12 [facility] Last Admin: 06/14/20 20:30 Dose: 0.5 mg Documented by: Chlorhexidine Gluconate (Chlorhexidine Gluconate 1 Ml Oral.Ashley) 15 ml SWABMOUTH BID [facility] Last Admin: 06/14/20 20:32 Dose: 15 ml Documented by: Diphenhydramine HCl (Diphenhydramine 12.5 Mg/5 Ml Oral.Ashley) 25 mg PT HSP PRN PRN Reason: insomnia Famotidine (Famotidine/Pf 20 Mg/2 Ml Vial) 20 mg IV QHS [facility] Last Admin: 06/14/20 20:32 Dose: 20 mg Documented by: Fentanyl (Fentanyl 100 Mcg/2 Ml Vial) 12.5 - 25 mcg IV Q1HP PRN; Protocol PRN Reason: Per Pain Protocol Heparin Sodium (Porcine) (Heparin 5,000 Unit/Ml Vial) 5,000 unit SQ Q12 [facility] Last Admin: 06/14/20 20:32 Dose: 5,000 unit Documented by: Hydromorphone HCl (Hydromorphone 1 Mg/Ml Syringe) 0.5 - 1 mg IV Q2HP PRN; Protocol PRN Reason: Per Pain Protocol Last Admin: 06/15/20 02:31 Dose: 0.5 mg Documented by: Piperacillin Sod/Tazobactam (Sod 2.25 gm/ Dextrose) 50 mls @ 100 mls/hr IV Q8H [facility] Last Infusion: 06/15/20 07:06 Dose: Infused Documented by: Heparin Sodium/Sodium Chloride (Heparin/Ns) 500 mls @ 0 mls/hr IV .Q0M ERNST; Protocol Norepinephrine Bitartrate 16 (mg/ Sodium Chloride) 250 mls @ 9.375 mls/hr IV Q24HP PRN; Protocol PRN Reason: Hypotension Dexmedetomidine HCl 400 mcg/ (Premix) 100 mls @ 5.718 mls/hr IV .[id number] PRN; Protocol PRN Reason: Sedation Sodium Chloride (Sodium Chloride 0.45%) 1,000 mls @ 84 mls/hr IV .[id number] [facility] Last Admin: 06/14/20 19:39 Dose: 84 mls/hr Documented by: Melatonin (Melatonin 3 Mg Tablet) 3 mg PO QHS [facility] Last Admin: 06/14/20 21:05 Dose: 3 mg Documented by: Naloxone HCl (Naloxone Hcl 0.4 Mg/Ml Vial) 0.1 mg IV Q2MIN PRN PRN Reason: Opiate Reversal Sodium Chloride (0.9 % Sodium Chloride 10 Ml Syringe) 10 ml IV Q8 [facility] Last Admin: 06/15/20 05:39 Dose: 10 ml Documented by: A/P Narrative A/P Narrative: A: *SBO w/incarcerated hernia & small perforation: s/p Ex-lap washout SB resection (06/12) -high-risk mortality state *Septic Shock: 2/2 above -vasopressors off (06/13), leukocytosis resolved *Remained intubated post-op: failed weaning trial past several yesterday, yesterday had good trial but not awake enough to follow any commands and no purposeful movements *JUJU on CKD IV with Oliguria: was on HD in past no off, follows with Dr. Mcclain -suspect ATN -UOP improved *Metabolic Acidosis: 2/2 above, improved *Anemia, chronic: *Morbid obesity: *COPD (2L O2@home): *Hypothyroidism: *Anxiety: *Suprapubic catheter chronic, neurogenic bladder: -champion changed this admit *GERD: *Atelectasis *High mortality risk: guarded prognosis P: -vent weaning trial -guarded prognosis, high risk mortality; had a discussion with son about current state -CT brain -sbo/diet/ngt per surgeon -IVFs, TF's on hold for increased NG outpt -monitor UOP -nephro following -IV zosyn -pending BC, UC difficult to interpret in setting of suprapubic cath and colonization -continue family discussions -clarify home meds -pt/ot when able -ppx: heparin/pepcid code status: DNR but continue current aggressive measures Time Spent With Patient Time: Total time spent is greater than 50% in coordination of care (as documented) at patient's floor/unit and/or counseling patient:
[2020-06-15 07:57] LABS: ALT/SGPT 28 U/L (<40); AST/SGOT 85 U/L (<32); Albumin 2.2 gm/dL (3.2-5.2); Albumin/Globulin Ratio 0.7 (1.0-2.3); Alkaline Phosphatase 75 U/L (39-117); Bilirubin,Direct 0.2 mg/dL (<0.3); Bilirubin,Total 0.5 mg/dL (0.1-1.0); Blood Urea Nitrogen 74 mg/dL (8-23); Carbon Dioxide 21 mmol/L (22-30); Chloride 108 mmol/L (96-108); Globulin 3.1 gm/dL (2.2-3.7); Glomerular Filtration Rate 11; Glucose 88 mg/dL (70-105); Lactate Dehydrogenase 302 U/L (135-225); Phosphorous 5.2 mg/dL (2.5-4.5); Triglycerides 236 mg/dL (<150); Uric Acid 8.6 mg/dL (2.5-8.0)
[2020-06-15 08:38] LABS: Band Neutrophils % 10 % (0-10); Lymphocytes % 13 % (15-49); Metamyelocytes % 1 %; Monocytes % (Manual) 1 % (1-12); Platelet Estimate DECREASED (Normal); RBC Morphology NORMAL (Normal); Reactive Lymphocytes 1 % (0-2); Segmented Neutrophils % 74 % (38-78)
--- NOTE | 2020-06-15 08:42 | Nephrology Progress Note ---
SUBJECTIVE Subjective Patient information: Note initiated : 06/15/20 at 8:39 am Service Date, if different from initiated Date: [] Patient: Anita Casas 69 y/o F admitted on 06/12/20 for Fall, Low Abd Pain. Chief Complaint: [] Patient with CKD 4 previously on dialysis for about a year but then had sufficient recovery to be off dialysis for over the past year. 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 Serum creatinine was 2 prior to developing ischemic bowel which has been surgically repaired. There is about a day of significant hypotension at presentation which led to the development of acute tubular necrosis. She has not been on pressors for the past 48 hours. Selected Entries 06/02/20 14:20 06/12/20 06:44 06/12/20 06:46 Blood Pressure 143/81 82/54 78/40 06/12/20 06:52 06/12/20 06:53 06/12/20 06:55 Blood Pressure 83/48 83/51 95/61 06/12/20 06:57 06/12/20 12:00 06/12/20 18:05 Blood Pressure 99/86 108/49 124/74 06/13/20 00:00 06/14/20 00:01 06/14/20 13:01 Blood Pressure 119/58 118/54 118/54 Laboratory Tests 06/15/20 06/15/20 04:00 05:00 Sodium 146 H Potassium 4.0 Chloride 108 Carbon Dioxide 21 L BUN 74 H Creatinine 3.8 H GFR Calculation 11 Glucose 88 Calcium 8.0 L Phosphorus 5.2 H Albumin 2.2 L Procalcitonin 19.[address] Head (06/15/2020): There are patchy zones of decreased attenuation in the centrum semiovale and leal radiata in the frontal and parietal lobes bilaterally. This is a chronic finding which was seen on the prior head CT done on 04/02/18. No cortical lesion is seen. There is no hemorrhage or evidence of an acute infarct. There is no mass effect. There is mild dilatation of the ventricles. The temporal to the lateral ventricles have enlarged since the prior study in 2018. There is no significant widening of the sulci. There is no abnormal extra-axial fluid collection is present. Constitutional Vitals: Vital Signs Temp Pulse Resp BP Pulse Ox 37.3 C H 111 H 17 118/62 96 06/15/20 04:00 06/15/20 07:07 06/15/20 07:07 06/15/20 07:01 06/15/20 07:07 Period Temp Pulse Resp BP Sys/Santizo Pulse Ox Last 24 Hr 36.7 C-37.4 C 98-130 15-36 111-175/50-80 95-99 Intake and Output 06/14/20 06/15/20 06/15/20 21:59 05:59 13:59 Intake Total 1466 190 50 Output Total 1245 740 115 Balance 221 -550 -65 Weight 115.122 kg Intake & Output: Intake & Output 06/14/20 06/15/20 06/15/20 21:59 05:59 13:59 Intake Total 1466 190 50 Output Total 1245 740 115 Balance 221 -550 -65 Weight 115.122 kg Intake: IV 1346 50 50 Sodium Chloride 0.9% 1,000 ml @ 1296 125 mls/hr IV .Q8H ERNST Rx#: [id number] Zosyn 2.25 gm In Dextrose 5% in 50 50 50 Water 50 ml @ 100 mls/hr IV Q8H ERNST Rx#:[id number] Diprivan 1,000 mg In Premix 1 0 Bag @ 5 MCG/KG/MIN 3.202 mls/hr IV .Q24H ERNST Rx#:[id number] Tube Feeding 90 80 GI Tube Flush 30 60 Output: Urine Catheter Amount 1245 740 115 Other: Urine Appearance Clear Clear Mucous Threads Urine Color Straw Straw General appearance: obese Exam: Intubated and off sedation but not awake yet Head Head exam: Present atraumatic Eye Eye exam: Present EOMI; Absent scleral icterus ENT ENT exam: Present mucous membranes dry Neck Neck exam: Present normal inspection; Absent meningismus Respiratory Additional comments: Bilateral air movement on the vent Cardiovascular Cardiovascular exam: Present +S1 and +S2; Absent JVD GI/Abdominal GI/Abdominal exam: Present hypoactive bowel sounds; Absent tenderness Extremities Exam Extremities exam: Present pedal edema (trace); Absent calf tenderness Neurological Exam Neurological exam: Present altered (Withdrawals to pain); Absent oriented X3 Psychiatric Additional comments: Obtunded Skin Skin exam: Present dry A/P Assessment and plan (1) Acute kidney injury (JUJU) with acute tubular necrosis (ATN): Status: Acute Comment: Prolonged hypotension documented on presentation to hospital with SBO, trip to OR all involved in renal ischemia and ATN. Starting to make Urine past 24 hours. No further hemodynamic insults after 1st 24 hours of stay. Will monitor for return of GFR. No need for acute HD at present time (2) Neurogenic dysfunction of the urinary bladder: Status: Chronic Comment: See above comments concerning polyneuropathy. Suprapubic catheter managed by urology (3) CKD stage G4/A3, GFR 15-29 and albumin creatinine ratio >300 mg/g: Status: Chronic Comment: Probably has underlying hypertensive nephrosclerosis, and developed acute renal failure and required dialysis for over a year before regaining enough renal function to come off dialysis. Currently running a creatinine around 2 mg/dL a GFR 25 cc/min. Probably has a component of obstructive uropathy given neurogenic bladder. Also has been exposed to polypharmacy and may have had acute interstitial nephritis from any of a number of antibiotics Right now she is doing well with suprapubic catheter, judicious use of antibiotics for a proven bacterial infection no empiric therapy, and avoiding nephrotoxic medications. Time Spent With Patient Time: Total time spent is greater than 50% in coordination of care (as documented) at patient's floor/unit and/or counseling patient:
[2020-06-15] MEDS: IPRATROPIUM/ALBUTEROL 3 ML AMPUL.NEB NEB SCH ×2 (08:52→21:05)
[2020-06-15] MEDS: BUDESONIDE 0.5 MG/2 ML AMPUL.NEB NEB SCH ×2 (08:52→21:05)
[2020-06-15] MEDS: CHLORHEXIDINE GLUCONATE 1 ML ORAL.SOL SWABMOUTH SCH ×2 (08:52→21:52)
--- NOTE | 2020-06-15 08:53 | XRay Report ---
HISTORY: Intubated, follow-up pulmonary infiltrates FINDINGS: There are residual mild streaky infiltrates in both lung bases adjacent to the diaphragms. There is a vertically oriented band of discoid atelectasis in the left heart border. These have improved since prior exam on 06/14/20. There may be small bilateral subpulmonic pleural effusions. The mid and upper lung montague are clear. The heart size is normal. No pneumothorax is present. Endotracheal tube is positioned 2.5 cm above the jonn. Nasogastric tube is in the stomach and right internal jugular line in the superior vena cava. There is no widening of the mediastinum. Moderate arthritis is present in the shoulders, left worse than right. IMPRESSION: Improving small infiltrates in both lung bases Interpreted and Authenticated by: Fransico Candelario 06/15/20
[2020-06-15] MEDS ORDERED: DEXTROSE 5% IN WATER 250 ML IV ONE (09:09)
[2020-06-15] MEDS: 0.45 % SODIUM CHLORIDE 1,000 ML IV SCH (09:43)
--- NOTE | 2020-06-15 11:09 | General Surgery Progress Note ---
SUBJECTIVE Subjective Patient information: Note initiated : 06/15/20 at 11:07 am Service Date, if different from initiated Date: [] Patient: Anita Casas 69 y/o F admitted on 06/12/20 for Fall, Low Abd Pain. Chief Complaint: [] Interval history: Postoperative day #3 status post exploratory laparotomy for bowel obstruction, incarcerated hernia with bowel perforation. Status post small bowel resection. Patient remains intubated in the intensive care unit, she did not tolerate tube feeds overnight with large residuals. She remains off vasopressor drugs. Constitutional Vitals: Vital Signs Temp Pulse Resp BP Pulse Ox 97.8 F 114 H 19 126/64 96 06/15/20 08:01 06/15/20 09:03 06/15/20 09:03 06/15/20 09:01 06/15/20 09:03 Period Temp Pulse Resp BP Sys/Santizo Pulse Ox Last 24 Hr 97.8 F-99.4 F 98-130 15-36 111-175/50-80 95-99 Intake and Output 06/14/20 06/15/20 06/15/20 21:59 05:59 13:59 Intake Total 5041 471 0291 Output Total 0325 715 0787 Balance 221 -550 -245 Weight 253 lb 12.8 oz Intake & Output: Intake & Output 06/14/20 06/15/20 06/15/20 21:59 05:59 13:59 Intake Total 6098 736 5045 Output Total 5892 910 2354 Balance 221 -550 -245 Weight 253 lb 12.8 oz Intake: IV 1346 50 1050 Sodium Chloride 0.45% 1,000 ml 1000 @ 84 mls/hr IV .[id number] ERNST Rx# :[id number] Sodium Chloride 0.9% 1,000 ml @ 1296 125 mls/hr IV .Q8H ERNST Rx#: [id number] Zosyn 2.25 gm In Dextrose 5% in 50 50 50 Water 50 ml @ 100 mls/hr IV Q8H ERNST Rx#:[id number] Diprivan 1,000 mg In Premix 1 0 Bag @ 5 MCG/KG/MIN 3.202 mls/hr IV .Q24H ERNST Rx#:[id number] Tube Feeding 90 80 0 GI Tube Flush 30 60 Output: Gastric Drainage 1000 Right Nare 1000 Urine Catheter Amount 1245 740 295 Other: Urine Appearance Clear Clear Mucous Threads Urine Color Straw Straw Exam: Intubated, sedated GI/Abdominal GI/Abdominal exam: Present soft; Absent distended and tenderness A/P Narrative A/P Narrative: Postoperative day #3 status post exploratory laparotomy and small bowel resection. Patient appears to be fully resuscitated at this time, however awaiting return of bowel function at this time. Continue with NG tube on low remittent suction. Once return of bowel function can resume tube feeds. Time Spent With Patient Time: Total time spent is greater than 50% in coordination of care (as documented) at patient's floor/unit and/or counseling patient:
[2020-06-15] MEDS: DEXTROSE 5%-1/2NS 1,000 ML IV SCH ×3 (11:23→20:30)
--- NOTE | 2020-06-15 11:30 | Cat Scan Report ---
History: Encephalopathy TECHNIQUE: The brain was imaged without contrast at 2.5 mm intervals. Radiation exposure was limited using dose reduction technology. FINDINGS: There are patchy zones of decreased attenuation in the centrum semiovale and leal radiata in the frontal and parietal lobes bilaterally. This is a chronic finding which was seen on the prior head CT done on 04/02/18. No cortical lesion is seen. There is no hemorrhage or evidence of an acute infarct. There is no mass effect. There is mild dilatation of the ventricles. The temporal to the lateral ventricles have enlarged since the prior study in 2018. There is no significant widening of the sulci. There is no abnormal extra-axial fluid collection is present. Bone windows show thickened calvarium with hyperostosis frontalis interna. No skull fracture is present. Very small air-fluid level seen in the left side of the sphenoid sinus and there is minor mucosal thickening in the inferior recesses of both frontal sinuses. IMPRESSION: Chronic white matter disease above the tentorium which may be age-related ischemia or degeneration. Borderline hydrocephalus Low-grade sinusitis Interpreted and Authenticated by: Fransico Candelario 06/15/20
[2020-06-15] MEDS: HEPARIN 5,000 UNIT/ML VIAL SQ SCH ×2 (12:22→21:53)
--- NOTE | 2020-06-15 18:37 | Surgical Pathology Report ---
Histology Microscopic Diagnosis Specimen A- JEJUNUM, MID, JEJUNECTOMY: --- SMALL BOWEL MUCOSA WITH ACUTE ENTERITIS, DEGENERATIVE CHANGES, PERFORATION AND SEROSAL EXUDATE. --- ACUTE ENTERITIS, SUPERFICIAL EROSION AND DEGENERATIVE CHANGES PRESENT AT ONE MARGIN. --- NO DYSPLASIA OR MALIGNANCY IDENTIFIED. Gross Description Received in formalin, designated mid jejunum, is an unoriented 13.3 cm long, up to 3.2 cm diameter portion of small intestine. The external surface has a moderate amount of attached ellison-white fibrinopurulent exudate. A 1.2 cm in greatest dimension area of perforation is present 6 cm from one end margin and 7.8 cm from the opposite end margin. The defect is closed by a ellison suture. There is a moderate amount of attached mesenteric adipose tissue. The specimen is opened along its length and contains a minimal amount of mucoid material. The intestinal mucosa has its usual plicated pattern. The wall is up to 0.5 cm thick. No mucosal lesions or masses are identified. No lymph nodes are identified within the mesenteric fat. Evp Managing Director sections are submitted as follows: A1 - end margins; A2 - mucosa immediately adjacent to transmural defect; A3 - random mucosa. (DMT:adj) Electronically Signed Yolanda Raymond MD, FCAP Electronically Signed 06/15/2020 18:36
[2020-06-15] MEDS ORDERED: DEXMEDETOMIDINE 100 ML IV ONE (20:19)
[2020-06-15] MEDS: FAMOTIDINE/PF 20 MG/2 ML VIAL IV SCH (21:53)
[2020-06-15] MEDS: 0.9 % SODIUM CHLORIDE 250 ML IV SCH (22:50)
[2020-06-15] MEDS: PROPOFOL 1,000 MG in PREMIX 1 BAG IV SCH (22:50)
[2020-06-15] MEDS ORDERED: PROPOFOL 100 ML IV ONE (23:00)
[2020-06-15] MEDS ORDERED: LACTATED RINGERS 1,000 ML IV ONE (23:35)
[2020-06-16] MEDS: 0.9 % SODIUM CHLORIDE 250 ML IV SCH ×3 (00:40→12:48)
[2020-06-16] MEDS: DEXTROSE 5%-1/2NS 1,000 ML IV SCH ×3 (04:52→22:22)
[2020-06-16] MEDS: PIPERACILLIN SODIUM/TAZOBACTAM 2.25 GM in DEXTROSE 5% IN WATER 50 ML IV SCH ×3 (05:37→22:22)
[2020-06-16] MEDS: 0.9 % SODIUM CHLORIDE 10 ML SYRINGE IV SCH ×3 (05:40→21:43)
[2020-06-16 06:45] LABS: Basophils # (Auto) 0.08 K/mcL (0.00-0.20); Basophils % (Auto) 0.8 % (0.0-2.0); Eosinophils # (Auto) 0.12 K/mcL (0.00-0.70); Eosinophils % (Auto) 1.3 % (0.0-7.0); Hematocrit 31.9 % (36.0-48.0); Hemoglobin 10.2 g/dL (12.0-15.0); Lymphocytes # (Auto) 0.96 K/mcL (1.50-4.80); Lymphocytes % (Auto) 10.1 % (15.0-49.0); Mean Cell Volume 94.1 fL (80.0-100.0); Mean Platelet Volume 11.1 fL (7.4-10.4); Monocytes # (Auto) 0.59 K/mcL (0.10-0.90); Monocytes % (Auto) 6.2 % (1.0-12.0); Platelet Count 115 K/mcL (140-440); RBC 3.39 M/mcL (4.00-5.20); WBC 9.5 K/mcL (4.5-11.0)
[2020-06-16 07:12] LABS: ALT/SGPT 26 U/L (<40); AST/SGOT 59 U/L (<32); Albumin 2.1 gm/dL (3.2-5.2); Albumin/Globulin Ratio 0.7 (1.0-2.3); Alkaline Phosphatase 60 U/L (39-117); Bilirubin,Direct 0.2 mg/dL (<0.3); Bilirubin,Total 0.5 mg/dL (0.1-1.0); Blood Urea Nitrogen 70 mg/dL (8-23); Calcium 7.9 mg/dL (8.6-10.4); Carbon Dioxide 21 mmol/L (22-30); Chloride 106 mmol/L (96-108); Globulin 3.2 gm/dL (2.2-3.7); Glomerular Filtration Rate 13; Glucose 135 mg/dL (70-105); Lactate Dehydrogenase 335 U/L (135-225); Phosphorous 3.5 mg/dL (2.5-4.5); Triglycerides 239 mg/dL (<150); Uric Acid 8.7 mg/dL (2.5-8.0)
--- NOTE | 2020-06-16 08:04 | XRay Report ---
HISTORY: Intubated, follow-up pulmonary infiltrates FINDINGS: The endotracheal tube, internal jugular line and nasogastric tubes remain well-positioned. There is no pneumothorax or pleural effusion. There are several bands of atelectasis in both lower lobes. The infiltrates continue to gradually resolve compared with recent exams. No pleural effusion is seen. The heart size is normal. There is no widening of the mediastinum. IMPRESSION: Continued gradual improvement of the bibasilar infiltrates with residual bands of discoid atelectasis Interpreted and Authenticated by: Fransico Candelario 06/16/20
[2020-06-16 08:09] LABS: Neutrophils % (Auto) 81.6 % (38.0-78.0)
[2020-06-16] MEDS: BUDESONIDE 0.5 MG/2 ML AMPUL.NEB NEB SCH ×2 (08:38→21:19)
[2020-06-16] MEDS: IPRATROPIUM/ALBUTEROL 3 ML AMPUL.NEB NEB SCH ×2 (08:38→21:19)
[2020-06-16] MEDS ORDERED: ACETAMINOPHEN 650 MG/65 ML BAG IV ONE (09:21)
--- NOTE | 2020-06-16 09:51 | XRay Report ---
HISTORY: Intubated, follow-up pulmonary infiltrates FINDINGS: There are persistent mild streaky infiltrates in both lower lobes. The greatest consolidation is located medially behind left heart border. The consolidation in the medial basal segment left lower lobe has become somewhat worse since 07/13/20. There has been no significant change in the right side. Mid and upper lung montague are clear. The heart size is normal. No pleural effusion is detected. Support tubes remain well-positioned. No pneumothorax is present. IMPRESSION: Persistent bibasilar pneumonia or atelectasis. Greater consolidation is developing medially in the left lower lobe at this time. Interpreted and Authenticated by: Fransico Candelario 06/16/20
[2020-06-16] MEDS: CHLORHEXIDINE GLUCONATE 1 ML ORAL.SOL SWABMOUTH SCH ×2 (09:55→21:31)
[2020-06-16] MEDS: HEPARIN 5,000 UNIT/ML VIAL SQ SCH ×2 (09:55→21:30)
[2020-06-16] MEDS: ACETAMINOPHEN 650 MG/65 ML BAG IV PRN ×2 (10:02→19:08)
[2020-06-16] MEDS ORDERED: MIDAZOLAM 2 MG/2 ML VIAL IV PRN (10:51)
[2020-06-16] MEDS: HYDROmorphone 1 MG/ML SYRINGE IV PRN ×4 (10:52→23:15)
--- NOTE | 2020-06-16 14:37 | General Surgery Progress Note ---
SUBJECTIVE Subjective Patient information: Note initiated : 06/16/20 at 2:35 pm Service Date, if different from initiated Date: [] Patient: Anita Casas 69 y/o F admitted on 06/12/20 for Fall, Low Abd Pain. Chief Complaint: [] Interval history: Patient remains sedated, intubated status post exploratory laparotomy with bowel resection for perforated, incarcerated incisional hernia Constitutional Vitals: Vital Signs Temp Pulse Resp BP Pulse Ox 98.7 F 91 H 20 104/47 100 06/16/20 11:57 06/16/20 11:57 06/16/20 13:23 06/16/20 11:45 06/16/20 13:23 Period Temp Pulse Resp BP Sys/Santizo Pulse Ox Last 24 Hr 98.4 F-100.0 F 88-120 14-42 56-149/38-94 95-100 Intake and Output 06/16/20 06/16/20 06/16/20 05:59 13:59 21:59 Intake Total 2087 177 Output Total 1145 540 435 Balance 943 1231 -435 Intake & Output: Intake & Output 06/16/20 06/16/20 06/16/20 05:59 13:59 21:59 Intake Total 2087 177 Output Total 1145 540 435 Balance 943 1231 -435 Intake: IV 2087 1770 Sodium Chloride 0.9% 250 ml @ 493 20 mls/hr IV .[id number] ERNST Rx#: [id number] Precedex 400 Mcg/100 ml 22 Dextrose 400 Mcg In Premix 1 Bag @ 0.2 MCG/KG/HR 5.718 mls/ hr IV .[id number] PRN Rx#: [id number] Dextrose 5%-1/2Ns IV Solution 1 1000 1000 ,000 ml @ 125 mls/hr IV .Q8H ERNST Rx#:[id number] Lactated Ringers 1,000 ml @ 1000 Wide Open IV BOLUS ONE Rx#: [id number] Levophed 16 mg In Sodium 7 85 Chloride 0.9% 234 ml @ 10 MCG/ MIN 9.375 mls/hr IV Q24HP PRN Rx#:[id number] Zosyn 2.25 gm In Dextrose 5% in 50 50 Water 50 ml @ 100 mls/hr IV Q8H ERNST Rx#:[id number] Diprivan 1,000 mg In Premix 1 9 78 Bag @ 5 MCG/KG/MIN 3.407 mls/hr IV .Q24H ERNST Rx#:[id number] Tube Feeding 0 0 Output: Gastric Drainage 800 300 Right Nare 800 300 Urine Catheter Amount 335 540 135 Void Amount 10 Other: Urine Appearance Sediment Clear Suprapubic Sediment Clear Urine Color Bright Yellow Bright Yellow Suprapubic Bright Yellow Bright Yellow Urine Odor Strong Exam: Sedated, intubated GI/Abdominal GI/Abdominal exam: Present soft; Absent distended Additional comments: Incision is clean A/P Narrative A/P Narrative: Start clamping trials on NG tube, if tolerates may resume tube feeds. Time Spent With Patient Time: Total time spent is greater than 50% in coordination of care (as documented) at patient's floor/unit and/or counseling patient: Total time spent with greater than 50% in coordination of care (as documented) at patient's floor/unit and/or counseling patient:: Greater than 35 minutes
--- NOTE | 2020-06-16 16:08 | Internal Med Progress Note ---
SUBJECTIVE Subjective Patient information: Note initiated : 06/16/20 at 3:48 pm Service Date, if different from initiated Date: [] Patient: Anita Casas 69 y/o F admitted on 06/12/20 for Fall, Low Abd Pain. Chief Complaint: Follow-up small bowel obstruction History of present illness: Presents the ED with fall and lower abdominal pain. She says she was doing relatively well until around the time she fell became very weak complained of abdominal pain bloating. She had some vomiting. She t akes morphine for chronic pain took that prior. Complaint feeling her legs being weak and typically is a walker. Is generalized weakness. But does not complain of any chest pain. She has chronic cough and shortness of breath and is on oxygen. But no change. Abdominal pain is diffuse all over crampy and sharp. Initial labs are unremarkable. Work-up in the ED revealed how appear to be a small bowel obstruction. Surgeon was contacted. Patient is fairly unremarkable overnight but then became unresponsive on the floor and with the systolic blood pressure in the 60s. She was bolused with 1 250 cc which brought her blood pressure back up however she started dipping again was put on Levophed another liter 1500 cc given. Then we lost IV access and a central line was placed. She is awake and answering questions though somewhat lethargic. 3 Patient did not show much improvement overnight. Urine output remains poor. Renal function slightly worse. 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 We will continue to hold and attempt weaning trial. Still requiring vasopressors, have been able to titrate down some overnight. Spent some time with her son the other day discussing her current state of health and the guarded prognosis. He seemed to understand. No bowel movement per nursing. Unable to gather review of systems given intubation status. *I talked with her son Angus over the phone regarding her current critical state. After some time on the phone it was decided to change her CODE STATUS to DO NOT RESUSCITATE, with the caveat of continuing aggressive measures as are currently being undertaken. Continue mechanical ventilation. But if her situation declines or she has a cardiac event we will likely transition to [facility] focus. 3/2 Good urine output last night. Creatinine a little bit worse likely has not peaked from probable ATN. No other significant changes. 06/15 No sedation overnight other than 0.5 mg IV Dilaudid x2. She responds to touch and sternal rub partially opening her eyes. Has been off sedation since 06/13 but has had intermittent fentanyl or dilaudid. He was on tube feedings yesterday however she started having high residuals and increased NG output to that was on hold. Leukocytosis resolved. Renal function slightly improved. 06/16 Patient was off propofol most of yesterday, with some spontaneous movement but not to command or seemingly purposeful. Became tachypneic and started overriding the vent about 1030 last night, required bagging, eventually Precedex, then propofol were resumed with calm the patient. Was on Levophed because of hypotension associated with propofol. This morning propofol again weaned down. Treated with IV acetaminophen as well as hydromorphone, which seemed to relax the patient. This afternoon, nodding yes or no to questions, interacting to some extent with her family. Had 40-minute family conference with the patient's son and daughter. We will continue to provide aggressive care, CODE STATUS remains DO NOT RESUSCITATE. ROS: Unobtainable due to the patient's mental status Constitutional Vitals: Vital Signs Temp Pulse Resp BP Pulse Ox 98.7 F 88 17 131/56 98 06/16/20 11:57 06/16/20 14:45 06/16/20 14:45 06/16/20 14:45 06/16/20 14:45 Period Temp Pulse Resp BP Sys/Santizo Pulse Ox Last 24 Hr 98.4 F-100.0 F 88-120 13-42 56-149/38-94 95-100 Intake and Output 06/16/20 06/16/20 06/16/20 05:59 13:59 21:59 Intake Total 2087 1771 27 Output Total 1145 540 505 Balance 943 1231 -478 GENERAL: Sedated, intubated RESPIRATORY: Clear anterior/laterally, not breathing over the vent CARDIOVASCULAR: Regular, trace to 1+ edema ABDOMEN: Surgical wound with dressing in place. Suprapubic catheter. Nondistended. Rare bowel sounds. EXTREMITIES: Warm, perfused NEURO: Sedated time of my exam Intake & Output: Intake & Output 06/16/20 06/16/20 06/16/20 05:59 13:59 21:59 Intake Total 2087 Output Total 1145 540 505 Balance 943 1231 -478 Intake: IV 2087 Sodium Chloride 0.9% 250 ml @ 493 20 mls/hr IV .[id number] [facility] Rx#: [id number] Precedex 400 Mcg/100 ml 22 Dextrose 400 Mcg In Premix 1 Bag @ 0.2 MCG/KG/HR 5.718 mls/ hr IV .[id number] PRN Rx#: [id number] Dextrose 5%-1/2Ns IV Solution 1 1000 1000 ,000 ml @ 125 mls/hr IV .Q8H [facility] Rx#:[id number] Lactated Ringers 1,000 ml @ 1000 Wide Open IV BOLUS ONE Rx#: [id number] Levophed 16 mg In Sodium 7 85 17 Chloride 0.9% 234 ml @ 10 MCG/ MIN 9.375 mls/hr IV Q24HP PRN Rx#:[id number] Zosyn 2.25 gm In Dextrose 5% in 50 50 Water 50 ml @ 100 mls/hr IV Q8H [facility] Rx#:[id number] Diprivan 1,000 mg In Premix 1 9 78 10 Bag @ 5 MCG/KG/MIN 3.407 mls/hr IV .Q24H [facility] Rx#:[id number] Tube Feeding 0 0 0 Output: Gastric Drainage 800 300 Right Nare 800 300 Urine Catheter Amount 335 540 205 Void Amount 10 Other: Urine Appearance Sediment Clear Suprapubic Sediment Clear Urine Color Bright Yellow Bright Yellow Suprapubic Bright Yellow Bright Yellow Urine Odor Strong OBJ DATA Labs CBC & Chem 7: 06/16/20 05:19 06/16/20 05:19 Labs: Abnormal Lab Results 06/16/20 06/16/20 06/15/20 05:19 05:19 05:00 WBC RBC 3.39 L Hgb 10.2 L Hct 31.9 L Plt Count 115 L MPV 11.1 H Neut % (Auto) 81.6 H Lymph % (Auto) 10.1 L Lymph # (Auto) 0.96 L Seg Neutrophils % Band Neutrophils % Lymphocytes % Absolute Neutrophils Platelet Estimate Sodium 146 H Carbon Dioxide 21 L 21 L Anion Gap 17.0 H BUN 70 H 74 H Creatinine 3.5 H 3.8 H Glucose 135 H Uric Acid 8.7 H 8.6 H Calcium 7.9 L 8.0 L Phosphorus 5.2 H AST 59 H 85 H Lactate Dehydrogenase 335 H 302 H Total Protein 5.3 L 5.3 L Albumin 2.1 L 2.2 L Albumin/Globulin Ratio 0.7 L 0.7 L Triglycerides 239 H 236 H Procalcitonin 06/15/20 06/15/20 06/14/20 05:00 04:00 05:06 WBC RBC 3.35 L Hgb 10.1 L Hct 30.6 L Plt Count 120 L MPV 10.8 H Neut % (Auto) Lymph % (Auto) Lymph # (Auto) Seg Neutrophils % 17 L Band Neutrophils % 66 H Lymphocytes % 13 L 8 L Absolute Neutrophils Platelet Estimate Decreased A Sodium Carbon Dioxide Anion Gap BUN Creatinine Glucose Uric Acid Calcium Phosphorus AST Lactate Dehydrogenase Total Protein Albumin Albumin/Globulin Ratio Triglycerides Procalcitonin 19.89 H 06/14/20 06/14/20 06/13/20 05:06 05:06 14:59 WBC 14.5 H RBC 3.35 L Hgb 10.2 L Hct 30.9 L Plt Count MPV 10.9 H Neut % (Auto) 91.5 H Lymph % (Auto) 5.7 L Lymph # (Auto) 0.83 L Seg Neutrophils % Band Neutrophils % Lymphocytes % Absolute Neutrophils 13.28 H Platelet Estimate Sodium Carbon Dioxide Anion Gap BUN 74 H 67 H Creatinine 4.1 H 3.9 H Glucose 178 H Uric Acid 8.1 H Calcium 7.6 L 7.3 L Phosphorus 5.8 H AST 72 H Lactate Dehydrogenase 255 H Total Protein 5.0 L Albumin 2.2 L Albumin/Globulin Ratio 0.8 L Triglycerides 255 H Procalcitonin Meds: Medications Albuterol Sulfate (Albuterol Sulfate 200 Puff Inhaler) 2 puff IH Q4-6HP PRN PRN Reason: shortness of breath or wheezin Albuterol/Ipratropium (Ipratropium/Albuterol 3 Ml Ampul.Neb) 3 ml NEB Q4HP PRN PRN Reason: Shortness Of Breath Albuterol/Ipratropium (Ipratropium/Albuterol 3 Ml Ampul.Neb) 3 ml NEB Q12H ERNST Last Admin: 06/16/20 08:38 Dose: 3 ml Documented by: Budesonide (Budesonide 0.5 Mg/2 Ml Ampul.Neb) 0.5 mg NEB Q12 [facility] Last Admin: 06/16/20 08:38 Dose: 0.5 mg Documented by: Chlorhexidine Gluconate (Chlorhexidine Gluconate 1 Ml Oral.Ashley) 15 ml SWABMOUTH BID [facility] Last Admin: 06/16/20 09:55 Dose: 15 ml Documented by: Diagnostic Test (Pha) (Accu-Chek 1 Each Strip) 1 each FS BIDAC [facility] Last Admin: 06/16/20 08:21 Dose: 1 each Documented by: Diphenhydramine HCl (Diphenhydramine 12.5 Mg/5 Ml Oral.Ashley) 25 mg PT HSP PRN PRN Reason: insomnia Famotidine (Famotidine/Pf 20 Mg/2 Ml Vial) 20 mg IV QHS [facility] Last Admin: 06/15/20 21:53 Dose: 20 mg Documented by: Heparin Sodium (Porcine) (Heparin 5,000 Unit/Ml Vial) 5,000 unit SQ Q12 [facility] Last Admin: 06/16/20 09:55 Dose: 5,000 unit Documented by: Hydromorphone HCl (Hydromorphone 1 Mg/Ml Syringe) 0.25 - 0.5 mg IV Q2HP PRN; Protocol PRN Reason: Per Pain Protocol Last Admin: 06/16/20 14:09 Dose: 0.25 mg Documented by: Piperacillin Sod/Tazobactam (Sod 2.25 gm/ Dextrose) 50 mls @ 100 mls/hr IV Q8H [facility] Last Admin: 06/16/20 14:58 Dose: 100 mls/hr Documented by: Heparin Sodium/Sodium Chloride (Heparin/Ns) 500 mls @ 0 mls/hr IV .Q0M [facility]; Protocol Dextrose/Sodium Chloride (Dextrose 5%-1/2ns Iv Solution) 1,000 mls @ 125 mls/hr IV .Q8H [facility] Last Admin: 06/16/20 14:07 Dose: 125 mls/hr Documented by: Propofol 1,000 mg/ Premix 100 mls @ 3.407 mls/hr IV .Q24H [facility]; Protocol Last Titration: 06/16/20 14:20 Dose: 0 mcg/kg/min, 0 mls/hr Documented by: Sodium Chloride (Sodium Chloride 0.9%) 250 mls @ 20 mls/hr IV .[id number] [facility] Last Admin: 06/16/20 11:48 Dose: 20 mls/hr Documented by: Sodium Chloride (Sodium Chloride 0.9%) 250 mls @ 20 mls/hr IV .[id number] [facility] Last Admin: 06/16/20 12:48 Dose: 20 mls/hr Documented by: Norepinephrine Bitartrate 16 (mg/ Sodium Chloride) 250 mls @ 9.375 mls/hr IV Q24 ERNST; Protocol Acetaminophen (Ofirmev) 650 mg in 65 mls @ 130 mls/hr IV Q6HP PRN; Protocol PRN Reason: Pain Last Infusion: 06/16/20 10:32 Dose: Infused Documented by: Midazolam HCl (Midazolam 2 Mg/2 Ml Vial) 2 mg IV Q2HP PRN PRN Reason: Agitation Naloxone HCl (Naloxone Hcl 0.4 Mg/Ml Vial) 0.1 mg IV Q2MIN PRN PRN Reason: Opiate Reversal Sodium Chloride (0.9 % Sodium Chloride 10 Ml Syringe) 10 ml IV Q8 [facility] Last Admin: 06/16/20 14:07 Dose: 10 ml Documented by: A/P Narrative A/P Narrative: A: *SBO w/incarcerated hernia & small perforation: s/p Ex-lap washout SB resection (06/12) -high-risk mortality state *Septic Shock: 2/2 above -vasopressors off (06/13), leukocytosis resolved *Remained intubated post-op: failed weaning trial past several days; on 06/15 had good trial but not awake enough to follow any commands and no purposeful movements *Encephalopathy: Suspect multifactorial from sepsis, critical illness. Pain may also be contributing. Starting to improve somewhat afternoon 06/16 -CT of brain without acute findings *JUJU on CKD IV with Oliguria: was on HD in past no off, follows with Dr. Mcclain -suspect ATN -UOP improved *Metabolic Acidosis: 2/2 above, improved *Anemia, chronic: *Morbid obesity: *COPD (2L O2@home): *Hypothyroidism: *Anxiety: *Suprapubic catheter chronic, neurogenic bladder: -champion changed this admit *GERD: *Atelectasis *High mortality risk: guarded prognosis P: -Focus more on pain medications if evidence of agitation Continue to try weaning vent as able Attempt at diet as per surgery -guarded prognosis, high risk mortality; had a discussion with son and daughter on 06/16 -IVFs -Continue to monitor UOP -Nephrology following -Continue IV zosyn -pending BC, UC difficult to interpret in setting of suprapubic cath and colonization -continue family discussions -pt/ot when able -ppx: heparin/pepcid Time Spent With Patient Time: Total time spent is greater than 50% in coordination of care (as documented) at patient's floor/unit and/or counseling patient: Total time spent with greater than 50% in coordination of care (as documented) at patient's floor/unit and/or counseling patient:: Greater than 35 minutes
--- NOTE | 2020-06-16 17:55 | Nephrology Progress Note ---
SUBJECTIVE Subjective Patient information: Note initiated : 06/16/20 at 5:41 pm Service Date, if different from initiated Date: [] Patient: Anita Casas 69 y/o F admitted on 06/12/20 for Fall, Low Abd Pain. 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 She has a suprapubic catheter and every time the urine was sampled it was assumed to be infected and thus this patient was receiving frequent amounts of antibiotics that may well have contributed to tubulointerstitial nephritis along with reflux from her neurogenic bladder along with reflux from her GERD plan. About a year ago she was able to discontinue dialysis with a creatinine of 2 and over the year it is waxed and waned between 2 and 3 mg/dL. He undergoes monthly suprapubic catheter changes in urology. ID had left specific recommendations for avoiding excess use of antibiotics, basically with holding antibiotics until she had symptomatic urinary tract infection or cystitis. She is chronically colonized with Proteus. As outlined in the ER note this woman presented with weakness hypotension belly pain and was found to have some ischemic bowel with bowel clot within her hernia and she underwent surgical revision. She developed ATN due to prolonged hypotension (approximately 24 hours). For the past 48 to 72 hours she is no longer oligoanuric and her creatinine peaked at 4.0 prior to improving to today's value of 3.5 milligrams per deciliter. As of this morning she was still on the ventilator but it spent about 4 hours on CPAP with a 7.0 endotracheal tube. She remained sedated this morning on propofol. Urine output has improved and she has been off vasopressors for 72 hours with the improvement in her urine output and GFR. Over the past year her previously functioning AV fistula has occluded and hopefully she will never need to return to dialysis. Constitutional Vitals: Vital Signs Temp Pulse Resp BP Pulse Ox 36.7 C 94 H 16 109/59 100 06/16/20 16:01 06/16/20 17:16 06/16/20 17:16 06/16/20 17:16 06/16/20 17:16 Period Temp Pulse Resp BP Sys/Santizo Pulse Ox Last 24 Hr 36.7 C-37.8 C 88-120 13-42 56-149/38-94 95-100 Intake and Output 06/16/20 06/16/20 06/16/20 05:59 13:59 21:59 Intake Total 2087 Output Total 1145 540 630 Balance 943 1231 -598 Intake & Output: Intake & Output 06/16/20 06/16/20 06/16/20 05:59 13:59 21:59 Intake Total 2087 Output Total 1145 540 630 Balance 943 1231 -598 Intake: IV 2087 Sodium Chloride 0.9% 250 ml @ 493 20 mls/hr IV .[id number] ERN[facility] Rx#: [id number] Precedex 400 Mcg/100 ml 22 Dextrose 400 Mcg In Premix 1 Bag @ 0.2 MCG/KG/HR 5.718 mls/ hr IV .[id number] PRN Rx#: [id number] Dextrose 5%-1/2Ns IV Solution 1 1000 1000 ,000 ml @ 125 mls/hr IV .Q8H ERN[facility] Rx#:[id number] Lactated Ringers 1,000 ml @ 1000 Wide Open IV BOLUS ONE Rx#: [id number] Levophed 16 mg In Sodium 7 85 22 Chloride 0.9% 234 ml @ 10 MCG/ MIN 9.375 mls/hr IV Q24HP PRN Rx#:[id number] Zosyn 2.25 gm In Dextrose 5% in 50 50 Water 50 ml @ 100 mls/hr IV Q8H ER[facility] Rx#:[id number] Diprivan 1,000 mg In Premix 1 9 78 10 Bag @ 5 MCG/KG/MIN 3.407 mls/hr IV .Q24H [facility] Rx#:[id number] Tube Feeding 0 0 0 Output: Gastric Drainage 800 300 Right Nare 800 300 Urine Catheter Amount 335 540 250 Void Amount 10 80 Other: Urine Appearance Sediment Clear Clear Suprapubic Sediment Clear Clear Urine Color Bright Yellow Bright Yellow Bright Yellow Suprapubic Bright Yellow Bright Yellow Bright Yellow Urine Odor Strong General appearance: morbidly obese and no acute distress Exam: Intubated, NG tube in place, sedated with propofol Head Head exam: Present normocephalic Eye Additional comments: Sedated and wall eyed disconjugate gaze ENT ENT exam: Present mucous membranes dry Neck Neck exam: Absent meningismus Additional comments: Supple neck No elevated JVD Respiratory Respiratory exam: Present rhonchi Additional comments: Bilateral air exchange Cardiovascular Cardiovascular exam: Present normal rate and rhythm, +S1 and +S2; Absent JVD and rubs GI/Abdominal GI/Abdominal exam: Present hypoactive bowel sounds; Absent rebound Extremities Exam Extremities exam: Present pedal edema (1+); Absent calf tenderness Neurological Exam Neurological exam: Present altered; Absent alert and CN II-XII intact (Disconjugate gaze) Additional comments: Sedated Response to noxious stimuli Psychiatric Additional comments: Sedated Skin Skin exam: Absent mottled and rash A/P Assessment and plan (1) Acute kidney injury (JUJU) with acute tubular necrosis (ATN): Status: Acute Comment: Prolonged hypotension documented on presentation to hospital with SBO, trip to OR all involved in renal ischemia and ATN. Starting to make Urine past 24 hours. No further hemodynamic insults after 1st 24 hours of stay. Will monitor for return of GFR. No need for acute HD at present time (2) CKD stage G4/A3, GFR 15-29 and albumin creatinine ratio >300 mg/g: Status: Chronic Comment: Probably has underlying hypertensive nephrosclerosis, and developed acute renal failure and required dialysis for over a year before regaining enough renal function to come off dialysis. Currently running a creatinine around 2 mg/dL a GFR 25 cc/min. Probably has a component of obstructive uropathy given neurogenic bladder. Also has been exposed to polypharmacy and may have had acute interstitial nephritis from any of a number of antibiotics Right now she is doing well with suprapubic catheter, judicious use of antibiotics for a proven bacterial infection no empiric therapy, and avoiding nephrotoxic medications. Narrative A/P Narrative: Slow but improving GFR No need for dialysis As she is not getting any p.o. fluids I would continue to administer IV fluids Replace electrolytes as indicated Baseline creatinine is around 2.0 mg/dL As she has a component of chronic interstitial nephritis she should be Volume replete as she is dehydration prone Monthly suprapubic catheter changes by Raisa Miller Do not anticipate a need for dialysis, and I am not sure she would permit dialysis if it came to that given her poor experience last year while on dialysis. Time Spent With Patient Time: Total time spent is greater than 50% in coordination of care (as documented) at patient's floor/unit and/or counseling patient:
[2020-06-16] MEDS ORDERED: LEVOTHYROXINE 100 MCG VIAL IV SCH (18:59)
[2020-06-16] MEDS: 0.9 % SODIUM CHLORIDE 10 ML SYRINGE IV PRN ×2 (19:17→19:50)
[2020-06-16] MEDS ORDERED: NOREPINEPHRINE BITARTRATE 16 MG in 0.9 % SODIUM CHLORIDE 234 ML IV SCH (21:00)
[2020-06-16] MEDS: FAMOTIDINE/PF 20 MG/2 ML VIAL IV SCH (21:30)
[2020-06-17] MEDS: PROPOFOL 1,000 MG in PREMIX 1 BAG IV SCH ×2 (01:07→23:37)
[2020-06-17] MEDS: 0.9 % SODIUM CHLORIDE 250 ML IV SCH ×4 (02:25→17:30)
[2020-06-17] MEDS: 0.9 % SODIUM CHLORIDE 10 ML SYRINGE IV SCH ×7 (02:55→21:11)
[2020-06-17] MEDS: ACETAMINOPHEN 650 MG/65 ML BAG IV PRN ×3 (04:26→18:30)
[2020-06-17] MEDS: 0.9 % SODIUM CHLORIDE 10 ML SYRINGE IV PRN ×3 (04:30→05:45)
[2020-06-17] MEDS: PIPERACILLIN SODIUM/TAZOBACTAM 2.25 GM in DEXTROSE 5% IN WATER 50 ML IV SCH ×3 (05:50→22:21)
[2020-06-17 06:40] LABS: Basophils # (Auto) 0.13 K/mcL (0.00-0.20); Basophils % (Auto) 0.9 % (0.0-2.0); Eosinophils # (Auto) 0.44 K/mcL (0.00-0.70); Eosinophils % (Auto) 2.9 % (0.0-7.0); Hematocrit 31.2 % (36.0-48.0); Lymphocytes # (Auto) 1.21 K/mcL (1.50-4.80); Lymphocytes % (Auto) 7.9 % (15.0-49.0); Mean Cell Volume 94.5 fL (80.0-100.0); Mean Corpuscular HGB Conc 32.1 g/dL (31.0-36.0); Monocytes # (Auto) 0.38 K/mcL (0.10-0.90); Monocytes % (Auto) 2.5 % (1.0-12.0); Platelet Count 117 K/mcL (140-440); Red Cell Distribution Width 14.4 % (11.5-14.5); WBC 15.2 K/mcL (4.5-11.0)
[2020-06-17] MEDS: LEVOTHYROXINE 100 MCG VIAL IV SCH (06:59)
[2020-06-17 07:01] LABS: ALT/SGPT 25 U/L (<40); AST/SGOT 42 U/L (<32); Albumin 1.8 gm/dL (3.2-5.2); Albumin/Globulin Ratio 0.5 (1.0-2.3); Alkaline Phosphatase 59 U/L (39-117); Bilirubin,Direct 0.2 mg/dL (<0.3); Bilirubin,Total 0.5 mg/dL (0.1-1.0); Blood Urea Nitrogen 61 mg/dL (8-23); Carbon Dioxide 19 mmol/L (22-30); Chloride 105 mmol/L (96-108); Globulin 3.3 gm/dL (2.2-3.7); Glomerular Filtration Rate 14; Glucose 99 mg/dL (70-105); Lactate Dehydrogenase 357 U/L (135-225); Phosphorous 3.1 mg/dL (2.5-4.5); Triglycerides 204 mg/dL (<150); Uric Acid 8.3 mg/dL (2.5-8.0)
[2020-06-17] MEDS: HYDROmorphone 1 MG/ML SYRINGE IV PRN ×2 (07:12→20:01)
[2020-06-17] MEDS ORDERED: LEVOTHYROXINE 100 MCG VIAL IV SCH (07:30)
--- NOTE | 2020-06-17 07:43 | XRay Report ---
HISTORY: Intubated, follow-up pulmonary infiltrates FINDINGS: There is a vertically oriented band of discoid atelectasis medially in the left lower lobe. The bibasilar infiltrates seen on the prior exams have otherwise resolved. Mid and upper lung montague are clear. The heart size is normal. There is no pleural effusion. The endotracheal tube, nasogastric tube and internal jugular catheter remain well-positioned. IMPRESSION: Near-complete resolution of the bibasilar infiltrates with residual band of discoid atelectasis in the left lower lobe Interpreted and Authenticated by: Fransico Candelario 06/17/20
[2020-06-17 07:53] LABS: Neutrophils % (Auto) 85.8 % (38.0-78.0)
[2020-06-17] MEDS: DEXTROSE 5%-1/2NS 1,000 ML IV SCH ×5 (08:05→19:14)
[2020-06-17] MEDS: IPRATROPIUM/ALBUTEROL 3 ML AMPUL.NEB NEB SCH ×3 (08:14→21:01)
[2020-06-17] MEDS: BUDESONIDE 0.5 MG/2 ML AMPUL.NEB NEB SCH ×2 (08:15→21:02)
[2020-06-17] MEDS: CHLORHEXIDINE GLUCONATE 1 ML ORAL.SOL SWABMOUTH SCH ×2 (08:56→21:04)
[2020-06-17] MEDS: HEPARIN 5,000 UNIT/ML VIAL SQ SCH ×2 (08:56→21:04)
--- NOTE | 2020-06-17 10:29 | Nephrology Progress Note ---
SUBJECTIVE Subjective Patient information: Note initiated : 06/17/20 at 10:23 am Patient: Anita Casas 69 y/o F admitted on 06/12/20 for Fall, Low Abd Pain. Chief Complaint: Unavailable Pertinent ROS: Unavailable due to intubation on mechanical ventilation Constitutional Vitals: Vital Signs Temp Pulse Resp BP Pulse Ox 98.1 F 104 H 19 90/47 96 06/17/20 08:00 06/17/20 10:00 06/17/20 10:00 06/17/20 10:00 06/17/20 10:00 Period Temp Pulse Resp BP Sys/Santizo Pulse Ox Last 24 Hr 98.0 F-99.5 F 88-111 13-34 79-140/41-87 95-100 Intake and Output 06/16/20 06/17/20 06/17/20 21:59 05:59 13:59 Intake Total 277 1365 1061 Output Total 1920 765 469 Balance -1643 600 592 Weight 254 lb 14.4 oz Intake & Output: Intake & Output 06/16/20 06/17/20 06/17/20 21:59 05:59 13:59 Intake Total 277 1365 1061 Output Total 1920 765 469 Balance -1643 600 592 Weight 254 lb 14.4 oz Intake: IV 277 1365 1061 Sodium Chloride 0.9% 250 ml @ 124 250 20 mls/hr IV .[id number] ERNST Rx#: [id number] Dextrose 5%-1/2Ns IV Solution 1 1000 1000 ,000 ml @ 125 mls/hr IV .Q8H ERNST Rx#:[id number] Levophed 16 mg In Sodium 28 11 Chloride 0.9% 234 ml @ 10 MCG/ MIN 9.375 mls/hr IV Q24HP PRN Rx#:[id number] Zosyn 2.25 gm In Dextrose 5% in 50 50 50 Water 50 ml @ 100 mls/hr IV Q8H ERNST Rx#:[id number] Diprivan 1,000 mg In Premix 1 10 Bag @ 5 MCG/KG/MIN 3.407 mls/hr IV .Q24H ERNST Rx#:[id number] Tube Feeding 0 0 0 Output: Gastric Drainage 1400 250 300 Right Nare 1400 250 300 Urine Catheter Amount 440 515 169 Void Amount 80 Other: Urine Appearance Clear Clear Clear Suprapubic Clear Clear Clear Urine Color Bright Yellow Bright Yellow Bright Yellow Straw Suprapubic Bright Yellow Bright Yellow Bright Yellow Urine Odor Normal General appearance: no acute distress Exam: Limited due to intubation on mechanical ventilation Head Head exam: Present atraumatic and normal inspection ENT Additional comments: ET tube Respiratory Respiratory exam: Absent accessory muscle use and respiratory distress Cardiovascular Cardiovascular exam: Present normal rate and rhythm Additional comments: Suprapubic actheter Neurological Exam Additional comments: Sedated A/P Assessment and plan (1) Acute renal failure with acute tubular necrosis superimposed on stage 4 chronic kidney disease: Assessment and plan: Anita Casas is a 67-year-old female with CKD stage G4/A3 associated with hypertensive nephrosclerosis, neurogenic bladder s/p suprapubic catheter and 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 She had exploratory laparotomy, abdominal washout, small bowel resection for incarcerated incisional hernia with small perforation likely secondary to trauma from her previous fall on 06/12/20. Acute kidney injury, likely acute tubular injury on chronic kidney disease stage G4/A3, present on arrival. Work up: Urinalysis on 06/12/20: Yellow, Clear, pH 8.0, SG 1.018, protein >500, blood 0.03, leukocyte esterase 75. CT Abdomen and Pelvis without contrast on 06/11/20: Marked bilateral renal atrophy compatible with end-stage renal failure stable. Progress: Serum creatinine decreased from 3.5 to 3.2 in the past 24 hours. Baseline serum creatinine: 2.1 to 2.4. Urine output: 1400+ ml reported in the past 24 hours. Metabolic acidosis. Intubated on mechanical ventilation and on IV pressors. Possible extubation this afternoon. Recommendations/Plan: No urgent acute hemodialysis need. Avoid NSAIDs, nephrotoxic medications and IV contrast. Monitor BMP and urine output. Status: Acute (2) Metabolic acidosis: Status: Acute Time Spent With Patient Time: Total time spent is greater than 50% in coordination of care (as documented) at patient's floor/unit and/or counseling patient:
--- NOTE | 2020-06-17 10:30 | Internal Med Progress Note ---
SUBJECTIVE Subjective Patient information: Note initiated : 06/17/20 at 10:22 am Service Date, if different from initiated Date: [] Patient: Anita Casas 69 y/o F admitted on 06/12/20 for Fall, Low Abd Pain. Chief Complaint: f/u SBO/perforation, JUJU History of present illness: Presents the ED with fall and lower abdominal pain. She says she was doing relatively well until around the time she fell became very weak complained of abdominal pain bloating. She had some vomiting. She takes morphine for chronic pain took that prior. Complaint feeling her legs being weak and typically is a walker. Is generalized weakness. But does not complain of any chest pain. She has chronic cough and shortness of breath and is on oxygen. But no change. Abdominal pain is diffuse all over crampy and sharp. Initial labs are unremarkable. Work-up in the ED revealed how appear to be a small bowel obstruction. Surgeon was contacted. Patient is fairly unremarkable overnight but then became unresponsive on the floor and with the systolic blood pressure in the 60s. She was bolused with 1250 cc which brought her blood pressure back up however she started dipping again was put on Levophed another liter 1500 cc given. Then we lost IV access and a central line was placed. She is awake and answering questions though somewhat lethargic. 3/ Patient did not show much improvement overnight. Urine output remains poor. Renal function slightly worse. She woke up last night being off sedation and was able to interact with shift mgr but because of pulling at lines and agitation sedation was placed back on and then removed this morning. We will continue to hold and attempt weaning trial. Still requiring vasopressors, have been able to titrate down some overnight. Spent some time with her son the other day discussing her current state of health and the guarded prognosis. He seemed to understand. No bowel movement per nursing. Unable to gather review of systems given intubation status. *I talked with her son Angus over the phone regarding her current critical state. After some time on the phone it was decided to change her CODE STATUS to DO NOT RESUSCITATE, with the caveat of continuing aggressive measures as are currently being undertaken. Continue mechanical ventilation. But if her situation declines or she has a cardiac event we will likely transition to comfort focus. 3/2 Good urine output last night. Creatinine a little bit worse likely has not peaked from probable ATN. No other significant changes. 06/15 No sedation overnight other than 0.5 mg IV Dilaudid x2. She responds to touch and sternal rub partially opening her eyes. Has been off sedation since 06/13 but has had intermittent fentanyl or dilaudid. He was on tube feedings yesterday however she started having high residuals and increased NG output to that was on hold. Leukocytosis resolved. Renal function slightly improved. 06/16 Patient was off propofol most of yesterday, with some spontaneous movement but not to command or seemingly purposeful. Became tachypneic and started overriding the vent about 1030 last night, required bagging, eventually Precedex, then propofol were resumed with calm the patient. Was on Levophed because of hypotension associated with propofol. This morning propofol again weaned down. Treated with IV acetaminophen as well as hydromorphone, which seemed to relax the patient. This afternoon, nodding yes or no to questions, interacting to some extent with her family. Had 40-minute family conference with the patient's son and daughter. We will continue to provide aggressive care, CODE STATUS remains DO NOT RESUSCITATE. 06/17 Patient continues to arouse, follow instructions. Tolerated spontaneous breathing trial for about an hour today, then became a little tachypneic and return to assist control. She is able to open her eyes nod or shake her head yes or no, moves extremities to command. Remains on 30% FiO2 with good oxygenation, ventilating easily with good pressures. Size 7 endotracheal tube may be contributing to her fatigue with prolonged SBT. Trial of clamping NG tube overnight, but still having significant output. Remains on low-dose norepinephrine while lightly sedated with propofol. Platelets slightly improved to 117K, creatinine down to 3.2 (3.5 yesterday). ROS: Patient shakes her head no when asked if she is in pain. Further review of systems gums limited due to the fact she is intubated and partially sedated Constitutional Vitals: Vital Signs Temp Pulse Resp BP Pulse Ox 98.1 F 104 H 19 90/47 96 06/17/20 08:00 06/17/20 10:00 06/17/20 10:00 06/17/20 10:00 06/17/20 10:00 Period Temp Pulse Resp BP Sys/Santizo Pulse Ox Last 24 Hr 98.0 F-99.5 F 88-111 13-34 79-140/41-87 95-100 GENERAL: Sedated initially, then arousable, tracks RESPIRATORY: Coarse breath sounds bilaterally, no wheezes, normal expiratory phase CARDIOVASCULAR: Regular rate and rhythm, somewhat obscured by breath sounds ABDOMEN: Incision intact, no bowel sounds appreciated, appropriate postoperative tenderness EXTREMITIES: Nonpitting edema in the upper extremities, trace edema in the lower extremities NEURO: Initially sedated, then awakes, moves all extremities to command Intake & Output: Intake & Output 06/16/20 06/17/20 06/17/20 21:59 05:59 13:59 Intake Total 277 1365 1061 Output Total 1920 765 469 Balance -1643 600 592 Weight 254 lb 14.4 oz Intake: IV 277 1365 1061 Sodium Chloride 0.9% 250 ml @ 124 250 20 mls/hr IV .[id number] ERNST Rx#: [id number] Dextrose 5%-1/2Ns IV Solution 1 1000 1000 ,000 ml @ 125 mls/hr IV .Q8H ERNST Rx#:[id number] Levophed 16 mg In Sodium 28 11 Chloride 0.9% 234 ml @ 10 MCG/ MIN 9.375 mls/hr IV Q24HP PRN Rx#:[id number] Zosyn 2.25 gm In Dextrose 5% in 50 50 50 Water 50 ml @ 100 mls/hr IV Q8H ERNST Rx#:[id number] Diprivan 1,000 mg In Premix 1 10 Bag @ 5 MCG/KG/MIN 3.407 mls/hr IV .Q24H ERNST Rx#:[id number] Tube Feeding 0 0 0 Output: Gastric Drainage 1400 250 300 Right Nare 1400 250 300 Urine Catheter Amount 440 515 169 Void Amount 80 Other: Urine Appearance Clear Clear Clear Suprapubic Clear Clear Clear Urine Color Bright Yellow Bright Yellow Bright Yellow Straw Suprapubic Bright Yellow Bright Yellow Bright Yellow Urine Odor Normal OBJ DATA Labs CBC & Chem 7: 06/17/20 05:48 06/17/20 05:48 Labs: Abnormal Lab Results 06/17/20 06/17/20 06/16/20 05:48 05:48 05:19 WBC 15.2 H RBC 3.30 L Hgb 10.0 L Hct 31.2 L Plt Count 117 L MPV 11.0 H Neut % (Auto) 85.8 H Lymph % (Auto) 7.9 L Lymph # (Auto) 1.21 L Lymphocytes % Absolute Neutrophils 13.08 H Platelet Estimate Sodium Carbon Dioxide 19 L 21 L Anion Gap BUN 61 H 70 H Creatinine 3.2 H 3.5 H Glucose 135 H Uric Acid 8.3 H 8.7 H Calcium 8.0 L 7.9 L Phosphorus AST 42 H 59 H Lactate Dehydrogenase 357 H 335 H Total Protein 5.1 L 5.3 L Albumin 1.8 L 2.1 L Albumin/Globulin Ratio 0.5 L 0.7 L Triglycerides 204 H 239 H Procalcitonin 06/16/20 06/15/20 06/15/20 05:19 05:00 05:00 WBC RBC 3.39 L 3.35 L Hgb 10.2 L 10.1 L Hct 31.9 L 30.6 L Plt Count 115 L 120 L MPV 11.1 H 10.8 H Neut % (Auto) 81.6 H Lymph % (Auto) 10.1 L Lymph # (Auto) 0.96 L Lymphocytes % 13 L Absolute Neutrophils Platelet Estimate Decreased A Sodium 146 H Carbon Dioxide 21 L Anion Gap 17.0 H BUN 74 H Creatinine 3.8 H Glucose Uric Acid 8.6 H Calcium 8.0 L Phosphorus 5.2 H AST 85 H Lactate Dehydrogenase 302 H Total Protein 5.3 L Albumin 2.2 L Albumin/Globulin Ratio 0.7 L Triglycerides 236 H Procalcitonin 06/15/20 04:00 WBC RBC Hgb Hct Plt Count MPV Neut % (Auto) Lymph % (Auto) Lymph # (Auto) Lymphocytes % Absolute Neutrophils Platelet Estimate Sodium Carbon Dioxide Anion Gap BUN Creatinine Glucose Uric Acid Calcium Phosphorus AST Lactate Dehydrogenase Total Protein Albumin Albumin/Globulin Ratio Triglycerides Procalcitonin 19.89 H Meds: Medications Albuterol Sulfate (Albuterol Sulfate 200 Puff Inhaler) 2 puff IH Q4-6HP PRN PRN Reason: shortness of breath or wheezin Albuterol/Ipratropium (Ipratropium/Albuterol 3 Ml Ampul.Neb) 3 ml NEB Q4HP PRN PRN Reason: Shortness Of Breath Last Admin: 06/17/20 00:10 Dose: 3 ml Documented by: Albuterol/Ipratropium (Ipratropium/Albuterol 3 Ml Ampul.Neb) 3 ml NEB Q12H [facility] Last Admin: 06/17/20 08:14 Dose: 3 ml Documented by: Budesonide (Budesonide 0.5 Mg/2 Ml Ampul.Neb) 0.5 mg NEB Q12 [facility] Last Admin: 06/17/20 08:15 Dose: 0.5 mg Documented by: Chlorhexidine Gluconate (Chlorhexidine Gluconate 1 Ml Oral.Ashley) 15 ml SWABMOUTH BID [facility] Last Admin: 06/17/20 08:56 Dose: 15 ml Documented by: Chlorhexidine Gluconate (Chlorhexidine Gluconate 1 Ml Oral.Ashley) 15 ml SWABMOUTH BID [facility] Diagnostic Test (Pha) (Accu-Chek 1 Each Strip) 1 each FS BIDAC [facility] Last Admin: 06/17/20 07:30 Dose: 1 each Documented by: Diphenhydramine HCl (Diphenhydramine 12.5 Mg/5 Ml Oral.Ashley) 25 mg PT HSP PRN PRN Reason: insomnia Famotidine (Famotidine/Pf 20 Mg/2 Ml Vial) 20 mg IV QHS [facility] Last Admin: 06/16/20 21:30 Dose: 20 mg Documented by: Heparin Sodium (Porcine) (Heparin 5,000 Unit/Ml Vial) 5,000 unit SQ Q12 [facility] Last Admin: 06/17/20 08:56 Dose: 5,000 unit Documented by: Hydromorphone HCl (Hydromorphone 1 Mg/Ml Syringe) 0.25 - 0.5 mg IV Q2HP PRN; Protocol PRN Reason: Per Pain Protocol Last Admin: 06/17/20 07:12 Dose: 0.25 mg Documented by: Piperacillin Sod/Tazobactam (Sod 2.25 gm/ Dextrose) 50 mls @ 100 mls/hr IV Q8H [facility] Last Infusion: 06/17/20 06:29 Dose: Infused Documented by: Dextrose/Sodium Chloride (Dextrose 5%-1/2ns Iv Solution) 1,000 mls @ 125 mls/hr IV .Q8H [facility] Last Admin: 06/17/20 08:05 Dose: 125 mls/hr Documented by: Propofol 1,000 mg/ Premix 100 mls @ 3.407 mls/hr IV .Q24H [facility]; Protocol Last Admin: 06/17/20 01:07 Dose: Not Given Documented by: Sodium Chloride (Sodium Chloride 0.9%) 250 mls @ 20 mls/hr IV .[id number] [facility] Last Admin: 06/17/20 02:58 Dose: Not Given Documented by: Sodium Chloride (Sodium Chloride 0.9%) 250 mls @ 20 mls/hr IV .[id number] [facility] Last Admin: 06/17/20 02:25 Dose: 20 mls/hr Documented by: Norepinephrine Bitartrate 16 (mg/ Sodium Chloride) 250 mls @ 9.375 mls/hr IV Q24 [facility]; Protocol Acetaminophen (Ofirmev) 650 mg in 65 mls @ 130 mls/hr IV Q6HP PRN; Protocol PRN Reason: Pain Last Infusion: 06/17/20 05:11 Dose: Infused Documented by: Levothyroxine Sodium (Levothyroxine 100 Mcg Vial) 100 mcg IV QAMAC [facility] Last Admin: 06/17/20 06:59 Dose: 100 mcg Documented by: Midazolam HCl (Midazolam 2 Mg/2 Ml Vial) 2 mg IV Q2HP PRN PRN Reason: Agitation Last Admin: 06/17/20 00:20 Dose: 2 mg Documented by: Naloxone HCl (Naloxone Hcl 0.4 Mg/Ml Vial) 0.1 mg IV Q2MIN PRN PRN Reason: Opiate Reversal Sodium Chloride (0.9 % Sodium Chloride 10 Ml Syringe) 10 ml IV Q8 [facility] Last Admin: 06/17/20 05:50 Dose: Not Given Documented by: Sodium Chloride (0.9 % Sodium Chloride 10 Ml Syringe) 10 ml IV UD PRN PRN Reason: FLUSH Last Admin: 06/17/20 05:45 Dose: 10 ml Documented by: Sodium Chloride (0.9 % Sodium Chloride 10 Ml Syringe) 10 ml IV Q12 [facility] Last Admin: 06/17/20 09:02 Dose: 10 ml Documented by: A/P Narrative A/P Narrative: A: *SBO w/incarcerated hernia & small perforation: s/p Ex-lap washout SB resection (06/12), POD#5 -high-risk mortality state *Septic Shock: 2/2 above -vasopressors off (06/13), leukocytosis resolved -WBC increased /, no apparent source -requiring some pressor support while on sedation -Proteus mirabilis on urine culture, though may be colonization -Blood cultures from admission no growth final *Remained intubated post-op: failed weaning trial past several days -on 06/15 had good trial but not awake enough to follow any commands and no purposeful movements -more awake on 06/17, tolerated 1 hr SBT *Encephalopathy: Suspect multifactorial from sepsis, critical illness. Pain may also be contributing. Starting to improve somewhat afternoon 06/16 -CT of brain without acute findings -Improving late 06/16 and 06/17 *JUJU on CKD IV with Oliguria: was on HD in past no off, follows with Dr. Mcclain -suspect ATN -UOP improved -Cr continues to slowly improve 06/17 *Metabolic Acidosis: 2/2 above, improved *Anemia, chronic: *Morbid obesity: *COPD (2L O2@home): *Hypothyroidism: *Anxiety: *Suprapubic catheter chronic, neurogenic bladder: -champion changed this admit -Urine culture with >100K CFU/mL Proteus mirabilis, unclear if infection versus colonization *GERD: *Atelectasis *High mortality risk: guarded prognosis P: * Focus more on pain medications if evidence of agitation * Continue to try weaning vent as able, repeat SBT early afternoon for possible extubation * Attempt at diet as per surgery, may need TPN soon * Await return of bowel function * Guarded prognosis, high risk mortality; had a discussion with son and daughter on 06/16 * Continue IV fluid * Continue to monitor UOP * Nephrology following * Continue IV zosyn * Continue family discussions * PT/OT when able -ppx: heparin/pepcid -CODE STATUS: DNR Time Spent With Patient Total time spent with greater than 50% in coordination of care (as documented) at patient's floor/unit and/or counseling patient:: Greater than 35 minutes
[2020-06-17] MEDS ORDERED: TPN PER PHARMACY IV SCH (11:36)
--- NOTE | 2020-06-17 11:36 | General Surgery Progress Note ---
SUBJECTIVE Subjective Patient information: Note initiated : 06/17/20 at 11:33 am Service Date, if different from initiated Date: [] Patient: Anita Casas 69 y/o F admitted on 06/12/20 for Fall, Low Abd Pain. Chief Complaint: [] Interval history: POD 5 s/p ex lap, bowel resection. Patient remains intubated with high NGT output Constitutional Vitals: Vital Signs Temp Pulse Resp BP Pulse Ox 98.1 F 100 H 13 110/50 98 06/17/20 08:00 06/17/20 11:05 06/17/20 11:05 06/17/20 11:05 06/17/20 11:05 Period Temp Pulse Resp BP Sys/Santizo Pulse Ox Last 24 Hr 98.0 F-99.5 F 88-111 13-34 88-140/47-87 95-100 Intake and Output 06/16/20 06/17/20 06/17/20 21:59 05:59 13:59 Intake Total 277 1365 1069 Output Total 1920 765 504 Balance -1643 600 565 Weight 254 lb 14.4 oz Intake & Output: Intake & Output 06/16/20 06/17/20 06/17/20 21:59 05:59 13:59 Intake Total 277 1365 1069 Output Total 1920 765 504 Balance -1643 600 565 Weight 254 lb 14.4 oz Intake: IV 277 1365 1069 Sodium Chloride 0.9% 250 ml @ 124 250 20 mls/hr IV .[id number] ERNST Rx#: [id number] Dextrose 5%-1/2Ns IV Solution 1 1000 1000 ,000 ml @ 125 mls/hr IV .Q8H ERNST Rx#:[id number] Levophed 16 mg In Sodium 28 19 Chloride 0.9% 234 ml @ 10 MCG/ MIN 9.375 mls/hr IV Q24HP PRN Rx#:[id number] Zosyn 2.25 gm In Dextrose 5% in 50 50 50 Water 50 ml @ 100 mls/hr IV Q8H ERNST Rx#:[id number] Diprivan 1,000 mg In Premix 1 10 Bag @ 5 MCG/KG/MIN 3.407 mls/hr IV .Q24H ERNST Rx#:[id number] Tube Feeding 0 0 0 Output: Gastric Drainage 1400 250 300 Right Nare 1400 250 300 Urine Catheter Amount 440 515 204 Void Amount 80 Other: Urine Appearance Clear Clear Clear Suprapubic Clear Clear Clear Urine Color Bright Yellow Bright Yellow Straw Suprapubic Bright Yellow Bright Yellow Bright Yellow Urine Odor Normal Exam: sedated, intubated. Will respond to commands at this time GI/Abdominal GI/Abdominal exam: Present soft; Absent normal bowel sounds and distended Additional comments: Inc: clean, dry A/P Narrative A/P Narrative: POD 5 s/p ex lap, still requiring mechanical vent Will start TPN for nutrition, expect return of bowel function once off vent. Dr. Garcia to cover for weekend. Time Spent With Patient Time: Total time spent is greater than 50% in coordination of care (as docratnan naomi) at patient's floor/unit and/or counseling patient:
[2020-06-17] MEDS ORDERED: MAGNESIUM SULFATE IV SCH (13:00)
[2020-06-17] MEDS ORDERED: SODIUM CHLORIDE IV SCH (13:00)
[2020-06-17] MEDS ORDERED: [UNRECOGNIZED DRUG - OTHER] IV SCH (13:00)
[2020-06-17] MEDS ORDERED: CALCIUM GLUCONATE IV SCH (13:00)
[2020-06-17 13:39] LABS: ALT/SGPT 23 U/L (<40); AST/SGOT 37 U/L (<32); Albumin 1.7 gm/dL (3.2-5.2); Albumin/Globulin Ratio 0.5 (1.0-2.3); Alkaline Phosphatase 63 U/L (39-117); Bilirubin,Direct 0.2 mg/dL (<0.3); Bilirubin,Total 0.5 mg/dL (0.1-1.0); Blood Urea Nitrogen 62 mg/dL (8-23); Calcium 7.8 mg/dL (8.6-10.4); Carbon Dioxide 21 mmol/L (22-30); Chloride 107 mmol/L (96-108); Globulin 3.4 gm/dL (2.2-3.7); Glomerular Filtration Rate 15; Glucose 116 mg/dL (70-105); Lactate Dehydrogenase 339 U/L (135-225); Phosphorous 3.1 mg/dL (2.5-4.5); Triglycerides 193 mg/dL (<150); Uric Acid 8.2 mg/dL (2.5-8.0)
[2020-06-17] MEDS ORDERED: POTASSIUM CHLORIDE 20 MEQ in DEXTROSE 5% IN WATER 100 ML IV ONE (14:18)
[2020-06-17 14:34] LABS: Prealbumin 5.3 mg/dL (20.0-40.0)
[2020-06-17] MEDS ORDERED: DEXTROSE 31 GM ORAL.SUSP PO PRN (14:57)
[2020-06-17] MEDS ORDERED: DEXTROSE 50% 50 ML VIAL IV PRN (14:57)
[2020-06-17] MEDS ORDERED: FAT EMULSION 20% 250 ML IV SCH (16:00)
[2020-06-17] MEDS: INSULIN LISPRO 1 UNIT/0.01 ML UNIT SQ SCH (17:29)
[2020-06-17] MEDS ORDERED: DEXTROSE 5%-1/2NS 1,000 ML IV SCH (19:15)
[2020-06-17] MEDS: FAMOTIDINE/PF 20 MG/2 ML VIAL IV SCH (21:03)
[2020-06-18] MEDS: INSULIN LISPRO 1 UNIT/0.01 ML UNIT SQ SCH ×5 (00:12→23:55)
[2020-06-18] MEDS: 0.9 % SODIUM CHLORIDE 250 ML IV SCH ×2 (03:20→13:56)
[2020-06-18] MEDS: 0.9 % SODIUM CHLORIDE 10 ML SYRINGE IV PRN (05:14)
[2020-06-18] MEDS: ACETAMINOPHEN 650 MG/65 ML BAG IV PRN ×2 (05:26→18:26)
[2020-06-18] MEDS: PIPERACILLIN SODIUM/TAZOBACTAM 2.25 GM in DEXTROSE 5% IN WATER 50 ML IV SCH (05:50)
[2020-06-18] MEDS: 0.9 % SODIUM CHLORIDE 10 ML SYRINGE IV SCH ×6 (05:50→22:00)
--- NOTE | 2020-06-18 06:39 | Nephrology Progress Note ---
SUBJECTIVE Subjective Patient information: Note initiated : 06/18/20 at 6:34 am Patient: Anita Casas 69 y/o F admitted on 06/12/20 for Fall, Low Abd Pain. Chief Complaint: Weakness Pertinent ROS: Limited due to BIPAP. Suprapubic catheter Constitutional Vitals: Vital Signs Temp Pulse Resp BP Pulse Ox 99.5 F H 96 H 25 H 118/61 95 06/18/20 04:00 06/18/20 06:01 06/18/20 06:01 06/18/20 06:01 06/18/20 06:01 Period Temp Pulse Resp BP Sys/Santizo Pulse Ox Last 24 Hr 98.0 F-100.2 F 94-109 11-38 90-135/45-90 95-100 Intake and Output 06/17/20 06/18/20 06/18/20 21:59 05:59 13:59 Intake Total 635 330 50 Output Total 1038 770 50 Balance -403 -440 0 Weight 255 lb 8 oz Intake & Output: Intake & Output 06/17/20 06/18/20 06/18/20 21:59 05:59 13:59 Intake Total 635 330 50 Output Total 1038 770 50 Balance -403 -440 0 Weight 255 lb 8 oz Intake: IV 635 300 50 Sodium Chloride 0.9% 250 ml @ 250 20 mls/hr IV .[id number] ERNST Rx#: [id number] Dextrose 5%-1/2Ns IV Solution 1 269 ,000 ml @ 125 mls/hr IV .Q8H ERNST Rx#:[id number] Intralipid 20% 250 ml @ 25 mls/ 250 hr IV MoFr@1600 ERNST Rx#: [id number] Levophed 16 mg In Sodium 1 Chloride 0.9% 234 ml @ 10 MCG/ MIN 9.375 mls/hr IV Q24 ERNST Rx# :[id number] Zosyn 2.25 gm In Dextrose 5% in 50 50 50 Water 50 ml @ 100 mls/hr IV Q8H ERNST Rx#:[id number] Oral 30 Tube Feeding 0 0 Output: Gastric Drainage 550 250 Right Nare 550 250 Urine Catheter Amount 488 520 50 Other: Urine Appearance Clear Clear Clear Suprapubic Clear Clear Urine Color Bright Yellow Bright Yellow Bright Yellow Suprapubic Bright Yellow Bright Yellow Urine Odor Normal Stool Size Moderate Stool Color Brown Stool Consistency Liquid General appearance: morbidly obese and no acute distress ENT Additional comments: BIPAP Respiratory Respiratory exam: Present decreased breath sounds Cardiovascular Cardiovascular exam: Present RRR Additional comments: Suprapubic catheter Neurological Exam Neurological exam: Present alert Psychiatric Psychiatric exam: Present normal affect and normal mood Skin Skin exam: Absent rash A/P Assessment and plan (1) Acute renal failure with acute tubular necrosis superimposed on stage 4 chronic kidney disease: Assessment and plan: Anita Casas is a 67-year-old female with CKD stage G4/A3 associated with hypertensive nephrosclerosis, neurogenic bladder s/p suprapubic catheter and 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 She had exploratory laparotomy, abdominal washout, small bowel resection for incarcerated incisional hernia with small perforation likely secondary to trauma from her previous fall on 06/12/20. Acute kidney injury, likely acute tubular injury on chronic kidney disease stage G4/A3, present on arrival. Work up: Urinalysis on 06/12/20: Yellow, Clear, pH 8.0, SG 1.018, protein >500, blood 0.03, leukocyte esterase 75. CT Abdomen and Pelvis without contrast on 06/11/20: Marked bilateral renal atrophy compatible with end-stage renal failure stable. Progress: Serum creatinine decreased from 3.2 to 2.8 in the past 24 hours. Baseline serum creatinine: 2.1 to 2.4. Hypokalemia and metabolic acidosis, managed by TPN. Extubated on 06/17/20. Off IV pressors on 06/17/20. Receiving TPN. Recommendations/Plan: No urgent acute hemodialysis need. Avoid NSAIDs, nephrotoxic medications and IV contrast. Monitor BMP and urine output. Status: Acute (2) Metabolic acidosis: Status: Acute Time Spent With Patient Time: Total time spent is greater than 50% in coordination of care (as docum ented) at patient's floor/unit and/or counseling patient:
[2020-06-18] MEDS: DEXTROSE 5%-1/2NS 1,000 ML IV SCH ×2 (06:43→19:00)
[2020-06-18 06:48] LABS: Basophils # (Auto) 0.17 K/mcL (0.00-0.20); Basophils % (Auto) 0.7 % (0.0-2.0); Eosinophils # (Auto) 0.67 K/mcL (0.00-0.70); Eosinophils % (Auto) 2.7 % (0.0-7.0); Hematocrit 31.8 % (36.0-48.0); Hemoglobin 10.4 g/dL (12.0-15.0); Lymphocytes # (Auto) 1.33 K/mcL (1.50-4.80); Lymphocytes % (Auto) 5.4 % (15.0-49.0); Mean Cell Volume 92.2 fL (80.0-100.0); Mean Corpuscular HGB Conc 32.7 g/dL (31.0-36.0); Mean Platelet Volume 11.2 fL (7.4-10.4); Monocytes # (Auto) 0.59 K/mcL (0.10-0.90); Monocytes % (Auto) 2.4 % (1.0-12.0); Platelet Count 135 K/mcL (140-440); RBC 3.45 M/mcL (4.00-5.20); Red Cell Distribution Width 14.2 % (11.5-14.5); WBC 24.5 K/mcL (4.5-11.0)
[2020-06-18 07:11] LABS: ALT/SGPT 24 U/L (<40); AST/SGOT 34 U/L (<32); Albumin 2.1 gm/dL (3.2-5.2); Albumin/Globulin Ratio 0.7 (1.0-2.3); Alkaline Phosphatase 81 U/L (39-117); Bilirubin,Direct < 0.2 mg/dL (<0.3); Bilirubin,Total 0.4 mg/dL (0.1-1.0); Blood Urea Nitrogen 58 mg/dL (8-23); Carbon Dioxide 19 mmol/L (22-30); Chloride 109 mmol/L (96-108); Globulin 3.1 gm/dL (2.2-3.7); Glomerular Filtration Rate 17; Glucose 119 mg/dL (70-105); Lactate Dehydrogenase 314 U/L (135-225); Phosphorous 2.4 mg/dL (2.5-4.5); Triglycerides 189 mg/dL (<150); Uric Acid 7.7 mg/dL (2.5-8.0)
[2020-06-18] MEDS: IPRATROPIUM/ALBUTEROL 3 ML AMPUL.NEB NEB SCH ×2 (07:48→21:18)
[2020-06-18] MEDS: BUDESONIDE 0.5 MG/2 ML AMPUL.NEB NEB SCH ×2 (07:48→21:19)
[2020-06-18] MEDS: CHLORHEXIDINE GLUCONATE 1 ML ORAL.SOL SWABMOUTH SCH ×2 (07:58→21:14)
[2020-06-18] MEDS: HEPARIN 5,000 UNIT/ML VIAL SQ SCH ×2 (07:58→21:12)
[2020-06-18] MEDS: LEVOTHYROXINE 100 MCG VIAL IV SCH (07:58)
[2020-06-18] MEDS ORDERED: POTASSIUM CHLORIDE 20 MEQ in DEXTROSE 5% IN WATER 250 ML IV ONE (08:00)
[2020-06-18 08:45] LABS: Neutrophils % (Auto) 88.8 % (38.0-78.0)
[2020-06-18] MEDS: HYDROmorphone 1 MG/ML SYRINGE IV PRN ×3 (09:00→20:14)
--- NOTE | 2020-06-18 12:51 | Internal Med Progress Note ---
SUBJECTIVE Subjective Patient information: Note initiated : 06/18/20 at 12:45 pm Service Date, if different from initiated Date: [] Patient: Anita Casas 69 y/o F admitted on 06/12/20 for Fall, Low Abd Pain. Chief Complaint: [] Interval history: History of present illness: Presents the ED with fall and lower abdominal pain. She says she was doing relatively well until around the time she fell became very weak complained of abdominal pain bloating. She had some vomiting. She takes morphine for chronic pain took that prior. Complaint feeling her legs being weak and typically is a walker. Is generalized weakness. But does not complain of any chest pain. She has chronic cough and shortness of breath and is on oxygen. But no change. Abdominal pain is diffuse all over crampy and sharp. Initial labs are unremarkable. Work-up in the ED revealed how appear to be a small bowel obstruction. Surgeon was contacted. Patient is fairly unremarkable overnight but then became unresponsive on the floor and with the systolic blood pressure in the 60s. She was bolused with 1250 cc which brought her blood pressure back up however she started dipping again was put on Levophed another liter 1500 cc given. Then we lost IV access and a central line was placed. She is awake and answering questions though somewhat lethargic. 3/ Patient did not show much improvement overnight. Urine output remains poor. Renal function slightly worse. She woke up last night being off sedation and was able to interact with power and recovery shift engineer but because of pulling at lines and agitation sedation was placed back on and then removed this morning. We will continue to hold and attempt weaning trial. Still requiring vasopressors, have been able to titrate down some overnight. Spent some time with her son the other day discussing her current state of hea lth and the guarded prognosis. He seemed to understand. No bowel movement per nursing. Unable to gather review of systems given intubation status. *I talked with her son Angus over the phone regarding her current critical state. After some time on the phone it was decided to change her CODE STATUS to DO NOT RESUSCITATE, with the caveat of continuing aggressive measures as are currently being undertaken. Continue mechanical ventilation. But if her situation declines or she has a cardiac event we will likely transition to comfort focus. 3/2 Good urine output last night. Creatinine a little bit worse likely has not peaked from probable ATN. No other significant changes. 3/3 No sedation overnight other than 0.5 mg IV Dilaudid x2. She responds to touch and sternal rub partially opening her eyes. Has been off sedation since 06/13 but has had intermittent fentanyl or dilaudid. He was on tube feedings yesterday however she started having high residuals and increased NG output to that was on hold. Leukocytosis resolved. Renal function slightly improved. 06/16 Patient was off propofol most of yesterday, with some spontaneous movement but not to command or seemingly purposeful. Became tachypneic and started overriding the vent about 1030 last night, required bagging, eventually Precedex, then propofol were resumed with calm the patient. Was on Levophed because of hypotension associated with propofol. This morning propofol again weaned down. Treated with IV acetaminophen as well as hydromorphone, which seemed to relax the patient. This afternoon, nodding yes or no to questions, interacting to some extent with her family. Had 40-minute family conference with the patient's son and daughter. We will continue to provide aggressive care, CODE STATUS remains DO NOT RESUSCITATE. 06/17 Patient continues to arouse, follow instructions. Tolerated spontaneous breathing trial for about an hour today, then became a little tachypneic and return to assist control. She is able to open her eyes nod or shake her head yes or no, moves extremities to command. Remains on 30% FiO2 with good oxygenation, ventilating easily with good pressures. Size 7 endotracheal tube may be contributing to her fatigue with prolonged SBT. Trial of clamping NG tube overnight, but still having significant output. Remains on low-dose norepinephrine while lightly sedated with propofol. Platelets slightly improved to 117K, creatinine down to 3.2 (3.5 yesterday). 06/18 Patient was extubated early afternoon yesterday. Was on BiPAP for little bit for work of breathing in the evening, but is done well since. Is not requiring any supplemental oxygen this morning. Awake and alert. Labs show white count up to 24,000. She has had no fever. Started on TPN yesterday afternoon. Still with significant NG tube output after its unclamped. Did have bowel movement yesterday, was loose but not watery. Pertinent ROS: Complaining of some abdominal pain this morning. Denies any shortness of breath. Constitutional Vitals: Vital Signs Temp Pulse Resp BP Pulse Ox 97.5 F 93 H 23 H 106/62 100 06/18/20 12:01 06/18/20 12:01 06/18/20 12:01 06/18/20 12:01 06/18/20 12:01 Period Temp Pulse Resp BP Sys/Santizo Pulse Ox Last 24 Hr 97.5 F-100.2 F 91-105 15-38 95-135/45-90 94-100 Intake and Output 06/17/20 06/18/20 06/18/20 21:59 05:59 13:59 Intake Total 635 330 375 Output Total 4084 714 8773 Balance -403 -440 -707 Weight 255 lb 8 oz GENERAL: In bed, looks mildly uncomfortable RESPIRATORY: Coarse bilateral breath sounds, respirations are unlabored CARDIOVASCULAR: Regular ABDOMEN: Soft with postoperative tenderness, no bowel sounds appreciated EXTREMITIES: 1+ edema in the lower extremities, mild nonpitting edema in the upper extremities NEURO: Alert, responds to questions appropriately. Very weak but moves all extremities on command. Intake & Output: Intake & Output 06/17/20 06/18/20 06/18/20 21:59 05:59 13:59 Intake Total 635 330 375 Output Total 7898 643 2137 Balance -403 -440 -707 Weight 255 lb 8 oz Intake: IV 635 300 375 Sodium Chloride 0.9% 250 ml @ 250 20 mls/hr IV .[id number] ERN[facility] Rx#: [id number] Dextrose 5%-1/2Ns IV Solution 1 269 ,000 ml @ 125 mls/hr IV .Q8H [facility] Rx#:[id number] Intralipid 20% 250 ml @ 25 mls/ 250 hr IV MoFr@1600 [facility] Rx#: [id number] Levophed 16 mg In Sodium 1 Chloride 0.9% 234 ml @ 10 MCG/ MIN 9.375 mls/hr IV Q24 [facility] Rx# :[id number] Zosyn 2.25 gm In Dextrose 5% in 50 50 50 Water 50 ml @ 100 mls/hr IV Q8H [facility] Rx#:[id number] Potassium Chloride 20 Meq In 260 Dextrose 5% in Water 250 ml @ 130 mls/hr IV ONCE ONE Rx#: [id number] Oral 30 Tube Feeding 0 0 0 Output: Gastric Drainage 550 250 650 Right Nare 550 250 650 Urine Catheter Amount 488 520 377 Void Amount 55 Other: Urine Appearance Clear Clear Clear Suprapubic Clear Clear Urine Color Bright Yellow Bright Yellow Bright Yellow Suprapubic Bright Yellow Bright Yellow Light Cande Urine Odor Normal Strong Stool Size Moderate Stool Color Brown Stool Consistency Liquid OBJ DATA Labs CBC & Chem 7: 06/18/20 05:14 06/18/20 05:14 Labs: Abnormal Lab Results 06/18/20 06/18/20 06/17/20 05:14 05:14 11:43 WBC 24.5 H RBC 3.45 L Hgb 10.4 L Hct 31.8 L Plt Count 135 L MPV 11.2 H Neut % (Auto) 88.8 H Lymph % (Auto) 5.4 L Lymph # (Auto) 1.33 L Absolute Neutrophils 21.69 H Potassium 3.1 L Chloride 109 H Carbon Dioxide 19 L 21 L BUN 58 H 62 H Creatinine 2.8 H 3.1 H Glucose 119 H 116 H Uric Acid 8.2 H Calcium 8.0 L 7.8 L Phosphorus 2.4 L AST 34 H 37 H Lactate Dehydrogenase 314 H 339 H Total Protein 5.2 L 5.1 L Albumin 2.1 L 1.7 L Albumin/Globulin Ratio 0.7 L 0.5 L Prealbumin 5.3 L Triglycerides 189 H 193 H TSH 06/17/20 06/17/20 06/17/20 05:48 05:48 05:48 WBC 15.2 H RBC 3.30 L Hgb 10.0 L Hct 31.2 L Plt Count 117 L MPV 11.0 H Neut % (Auto) 85.8 H Lymph % (Auto) 7.9 L Lymph # (Auto) 1.21 L Absolute Neutrophils 13.08 H Potassium Chloride Carbon Dioxide 19 L BUN 61 H Creatinine 3.2 H Glucose Uric Acid 8.3 H Calcium 8.0 L Phosphorus AST 42 H Lactate Dehydrogenase 357 H Total Protein 5.1 L Albumin 1.8 L Albumin/Globulin Ratio 0.5 L Prealbumin Triglycerides 204 H TSH 23.34 H 06/16/20 06/16/20 05:19 05:19 WBC RBC 3.39 L Hgb 10.2 L Hct 31.9 L Plt Count 115 L MPV 11.1 H Neut % (Auto) 81.6 H Lymph % (Auto) 10.1 L Lymph # (Auto) 0.96 L Absolute Neutrophils Potassium Chloride Carbon Dioxide 21 L BUN 70 H Creatinine 3.5 H Glucose 135 H Uric Acid 8.7 H Calcium 7.9 L Phosphorus AST 59 H Lactate Dehydrogenase 335 H Total Protein 5.3 L Albumin 2.1 L Albumin/Globulin Ratio 0.7 L Prealbumin Triglycerides 239 H TSH Microbiology 06/12/20 08:45 Blood Culture - Final Blood 06/12/20 08:35 Blood Culture - Final Blood 06/12/20 10:50 Urine Culture - Final Urine - Catheterized Proteus mirabilis 06/13/20 08:49 MRSA (PCR) - Final Nose - Both Right and Left Meds: Medications Albuterol Sulfate (Albuterol Sulfate 200 Puff Inhaler) 2 puff IH Q4-6HP PRN PRN Reason: shortness of breath or wheezin Albuterol/Ipratropium (Ipratropium/Albuterol 3 Ml Ampul.Neb) 3 ml NEB Q4HP PRN PRN Reason: Shortness Of Breath Last Admin: 06/17/20 00:10 Dose: 3 ml Documented by: Albuterol/Ipratropium (Ipratropium/Albuterol 3 Ml Ampul.Neb) 3 ml NEB Q12H [facility] Last Admin: 06/18/20 07:48 Dose: 3 ml Documented by: Budesonide (Budesonide 0.5 Mg/2 Ml Ampul.Neb) 0.5 mg NEB Q12 [facility] Last Admin: 06/18/20 07:48 Dose: 0.5 mg Documented by: Chlorhexidine Gluconate (Chlorhexidine Gluconate 1 Ml Oral.Ashley) 15 ml SWABMOUTH BID [facility] Last Admin: 06/18/20 07:58 Dose: 15 ml Documented by: Dextrose (Dextrose 50% 50 Ml Vial) 0 ml IV UD PRN PRN Reason: Hypoglycemia Diagnostic Test (Pha) (Accu-Chek 1 Each Strip) 1 each FS Q6 [facility] Last Admin: 06/18/20 12:00 Dose: 1 each Documented by: Diphenhydramine HCl (Diphenhydramine 12.5 Mg/5 Ml Oral.Ashley) 25 mg PT HSP PRN PRN Reason: insomnia Last Admin: 06/17/20 23:16 Dose: 25 mg Documented by: Famotidine (Famotidine/Pf 20 Mg/2 Ml Vial) 20 mg IV QHS [facility] Last Admin: 06/17/20 21:03 Dose: 20 mg Documented by: Glucose (Dextrose 31 Gm Oral.Susp) 15 gm PO PRN PRN PRN Reason: Hypoglycemia Heparin Sodium (Porcine) (Heparin 5,000 Unit/Ml Vial) 5,000 unit SQ Q12 [facility] Last Admin: 06/18/20 07:58 Dose: 5,000 unit Documented by: Hydromorphone HCl (Hydromorphone 1 Mg/Ml Syringe) 0.25 - 0.5 mg IV Q2HP PRN; Protocol PRN Reason: Per Pain Protocol Last Admin: 06/18/20 09:00 Dose: 0.5 mg Documented by: Piperacillin Sod/Tazobactam (Sod 2.25 gm/ Dextrose) 50 mls @ 100 mls/hr IV Q8H [facility] Last Infusion: 06/18/20 06:28 Dose: Infused Documented by: Propofol 1,000 mg/ Premix 100 mls @ 3.407 mls/hr IV .Q24H [facility]; Protocol Last Admin: 06/17/20 23:37 Dose: Not Given Documented by: Sodium Chloride (Sodium Chloride 0.9%) 250 mls @ 20 mls/hr IV .[id number] [facility] Last Admin: 06/18/20 03:20 Dose: Not Given Documented by: Norepinephrine Bitartrate 16 (mg/ Sodium Chloride) 250 mls @ 9.375 mls/hr IV Q24 [facility]; Protocol Last Titration: 06/17/20 14:30 Dose: 0 mcg/min, 0 mls/hr Documented by: Acetaminophen (Ofirmev) 650 mg in 65 mls @ 130 mls/hr IV Q6HP PRN; Protocol PRN Reason: Pain Last Infusion: 06/18/20 06:39 Dose: Infused Documented by: Calcium Gluconate 4.65 meq/Magnesium Sulfate 16.24 meq/Sodium Chloride 40 meq/Potassium Chloride 20 meq/Potassium Phosphate 20 meq/Multivitamins/Minerals 10 ml/Amino Acids 1,048.5455 mls @ 40 mls/hr IV Q24H [facility] Stop: 06/18/20 12:59 Last Admin: 06/17/20 13:40 Dose: 40 mls/hr Documented by: Fat Emulsion Intravenous (Intralipid 20%) 250 mls @ 25 mls/hr IV MoFr@1600 [facility] Last Infusion: 06/18/20 03:20 Dose: Infused Documented by: Dextrose/Sodium Chloride (Dextrose 5%-1/2ns Iv Solution) 1,000 mls @ 60 mls/hr IV .[id number] [facility] Last Admin: 06/18/20 06:43 Dose: Not Given Documented by: Calcium Gluconate 10 meq/Magnesium Sulfate 32.48 meq/Sodium Chloride 20 meq /Potassium Chloride 40 meq/Potassium Phosphate 60 meq/Multivitamins/Minerals 10 ml/Amino Acids 2,078.1417 mls @ 80 mls/hr IV Q24H [facility] Insulin Human Lispro (Insulin Lispro 1 Unit/0.01 Ml Unit) 0 unit SQ Q6H [facility]; Protocol Last Admin: 06/18/20 11:59 Dose: 1 units Documented by: Levothyroxine Sodium (Levothyroxine 100 Mcg Vial) 100 mcg IV QAMAC [facility] Last Admin: 06/18/20 07:58 Dose: 100 mcg Documented by: Midazolam HCl (Midazolam 2 Mg/2 Ml Vial) 2 mg IV Q2HP PRN PRN Reason: Agitation Last Admin: 06/17/20 00:20 Dose: 2 mg Documented by: Naloxone HCl (Naloxone Hcl 0.4 Mg/Ml Vial) 0.1 mg IV Q2MIN PRN PRN Reason: Opiate Reversal Sodium Chloride (0.9 % Sodium Chloride 10 Ml Syringe) 10 ml IV Q8 [facility] Last Admin: 06/18/20 05:50 Dose: Not Given Documented by: Sodium Chloride (0.9 % Sodium Chloride 10 Ml Syringe) 10 ml IV UD PRN PRN Reason: FLUSH Last Admin: 06/18/20 05:14 Dose: 10 ml Documented by: Sodium Chloride (0.9 % Sodium Chloride 10 Ml Syringe) 10 ml IV Q12 [facility] Last Admin: 06/18/20 07:59 Dose: 10 ml Documented by: A/P Narrative A/P Narrative: *SBO w/incarcerated hernia & small perforation: s/p Ex-lap washout SB resection (06/12), POD#6 -high-risk mortality state *Septic Shock: 2/2 above -vasopressors off (06/13), leukocytosis resolved -WBC increased 06/17 and 3/, no apparent source -requiring some pressor support while on sedation, now off on 06/18 after extubation -Proteus mirabilis on urine culture, though may be colonization, will be adequately treated with piperacillin/tazobactam -Blood cultures from admission no growth final *Remained intubated post-op: failed weaning trial past several daysresolved -on 06/15 had good trial but not awake enough to follow any commands and no purposeful movements -more awake on 06/17, tolerated 1 hr SBT -Extubated early afternoon 06/17 *Encephalopathy: Suspect multifactorial from sepsis, critical illness. Pain may also be contributing. Starting to improve somewhat afternoon 06/16 -CT of brain without acute findings -Improving late 06/16 and 06/17 *JUJU on CKD IV with Oliguria: was on HD in past no off, follows with Dr. Mcclain -suspect ATN -UOP improved -Cr continues to slowly improve 06/18 *Metabolic Acidosis: 2/ above, improved *Anemia, chronic: *Morbid obesity: *COPD (2L O2@home): Now on room air 06/18 *Hypothyroidism: *Anxiety: *Suprapubic catheter chronic, neurogenic bladder: -champion changed this admit -Urine culture with >100K CFU/mL Proteus mirabilis, unclear if infection versus colonization *GERD: *Atelectasis *High mortality risk: guarded prognosis P: * Follow white count, reculture if fever * If watery stool, send C. difficile * Continue TPN started yesterday * Await return of bowel function * Guarded prognosis, high risk mortality; had a discussion with son and daughter on 06/16 * Continue IV fluid while not taking p.o. * Continue to monitor UOP * Nephrology following * Continue IV zosyn * PT/OT -ppx: heparin/pepcid -CODE STATUS: DNR Time Spent With Patient Time: Total time spent is greater than 50% in coordination of care (as documen naomi) at patient's floor/unit and/or counseling patient: Total time spent with greater than 50% in coordination of care (as documented) at patient's floor/unit and/or counseling patient:: Greater than 35 minutes
[2020-06-18] MEDS ORDERED: [UNRECOGNIZED DRUG - OTHER] IV SCH ×2 (13:00)
[2020-06-18] MEDS ORDERED: MAGNESIUM SULFATE IV SCH ×2 (13:00)
[2020-06-18] MEDS ORDERED: MEROPENEM 0.5 GM in 0.9 % SODIUM CHLORIDE 50 ML IV SCH (13:00)
[2020-06-18] MEDS ORDERED: SODIUM CHLORIDE IV SCH ×2 (13:00)
[2020-06-18] MEDS ORDERED: CALCIUM GLUCONATE IV SCH ×2 (13:00)
--- NOTE | 2020-06-18 13:00 | General Surgery Progress Note ---
SUBJECTIVE Subjective Patient information: Note initiated : 06/18/20 at 12:48 pm Service Date, if different from initiated Date: [] Patient: Anita Casas 69 y/o F admitted on 06/12/20 for Fall, Low Abd Pain. Chief Complaint: [] Principal diagnosis: Small bowel obstruction with perforation Interval history: Patient is stable with stable vital signs. She is no longer on pressors. She is afebrile and does not have significant tachycardia. Her white count has increased to 24,500. Hemoglobin 10.4 and hematocrit 31.8. Potassium is 3.1 but is being replaced. BUN 38, creatinine 2.4, phosphorus 2.4, magnesium 1.8. Constitutional Vitals: Vital Signs Temp Pulse Resp BP Pulse Ox 97.5 F 93 H 23 H 106/62 100 06/18/20 12:01 06/18/20 12:01 06/18/20 12:01 06/18/20 12:01 06/18/20 12:01 Period Temp Pulse Resp BP Sys/Santizo Pulse Ox Last 24 Hr 97.5 F-100.2 F 91-105 15-38 95-135/45-90 94-100 Intake and Output 06/17/20 06/18/20 06/18/20 21:59 05:59 13:59 Intake Total 635 330 375 Output Total 9566 438 0262 Balance -403 -440 -707 Weight 255 lb 8 oz Intake & Output: Intake & Output 06/17/20 06/18/20 06/18/20 21:59 05:59 13:59 Intake Total 635 330 375 Output Total 2957 528 3789 Balance -403 -440 -707 Weight 255 lb 8 oz Intake: IV 635 300 375 Sodium Chloride 0.9% 250 ml @ 250 20 mls/hr IV .[id number] [facility] Rx#: [id number] Dextrose 5%-1/2Ns IV Solution 1 269 ,000 ml @ 125 mls/hr IV .Q8H [facility] Rx#:[id number] Intralipid 20% 250 ml @ 25 mls/ 250 hr IV MoFr@1600 [facility] Rx#: [id number] Levophed 16 mg In Sodium 1 Chloride 0.9% 234 ml @ 10 MCG/ MIN 9.375 mls/hr IV Q24 [facility] Rx# :[id number] Zosyn 2.25 gm In Dextrose 5% in 50 50 50 Water 50 ml @ 100 mls/hr IV Q8H [facility] Rx#:[id number] Potassium Chloride 20 Meq In 260 Dextrose 5% in Water 250 ml @ 130 mls/hr IV ONCE ONE Rx#: [id number] Oral 30 Tube Feeding 0 0 0 Output: Gastric Drainage 550 250 650 Right Nare 550 250 650 Urine Catheter Amount 488 520 377 Void Amount 55 Other: Urine Appearance Clear Clear Clear Suprapubic Clear Clear Urine Color Bright Yellow Bright Yellow Bright Yellow Suprapubic Bright Yellow Bright Yellow Light Cande Urine Odor Normal Strong Stool Size Moderate Stool Color Brown Stool Consistency Liquid Exam: sedated, intubated. Will respond to commands at this time Neck Neck exam: Present full ROM; Absent tenderness Respiratory Respiratory exam: Present decreased breath sounds (Decreased breath sounds bilaterally) and rales (Dependent rales); Absent rhonchi and wheezes Cardiovascular Cardiovascular exam: Present +S1, +S2 and tachycardia; Absent JVD GI/Abdominal GI/Abdominal exam: Present diminished bowel sounds, distended and tenderness (Mild incisional tenderness) Extremities Exam Extremities exam: Present full ROM, normal inspection and pedal edema (1+ pedal edema) Neurological Exam Neurological exam: Present alert and oriented X3 Psychiatric Psychiatric exam: Present agitated, anxious and depressed Skin Skin exam: Present intact and normal color; Absent rash A/P Assessment and plan (1) Acute renal failure with acute tubular necrosis superimposed on stage 4 chronic kidney disease: Assessment and plan: Anita Casas is a 67-year-old female with CKD stage G4/A3 associated with hypertensive nephrosclerosis, neurogenic bladder s/p suprapubic catheter and 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 She had exploratory laparotomy, abdominal washout, small bowel resection for incarcerated incisional hernia with small perforation likely secondary to trauma from her previous fall on 06/12/20. Acute kidney injury, likely acute tubular injury on chronic kidney disease stage G4/A3, present on arrival. Work up: Urinalysis on 06/12/20: Yellow, Clear, pH 8.0, SG 1.018, protein >500, blood 0.03, leukocyte esterase 75. CT Abdomen and Pelvis without contrast on 06/11/20: Marked bilateral renal atrophy compatible with end-stage renal failure stable. Progress: Serum creatinine decreased from 3.2 to 2.8 in the past 24 hours. Baseline serum creatinine: 2.1 to 2.4. Hypokalemia and metabolic acidosis, managed by TPN. Extubated on 06/17/20. Off IV pressors on 06/17/20. Receiving TPN. Recommendations/Plan: No urgent acute hemodialysis need. Avoid NSAIDs, nephrotoxic medications and IV contrast. Monitor BMP and urine output. Status: Acute (2) Metabolic acidosis: Status: Acute (3) Anastomotic leak of intestine: Status: Acute (4) Adynamic ileus: Status: Acute Narrative A/P Narrative: Continue to monitor closely continue antibiotics Will probably need follow-up CT of abdomen pelvis and chest Time Spent With Patient Time: Total time spent is greater than 50% in coordination of care (as documented) at patient's floor/unit and/or counseling patient:
[2020-06-18] MEDS ORDERED: DEXTROSE 5%-1/2NS 1,000 ML IV SCH (13:51)
[2020-06-18] MEDS ORDERED: ROCURONIUM 10 MG/ML ML IV ONE (13:51)
[2020-06-18] MEDS ORDERED: GLYCOPYRROLATE 0.2 MG/ML VIAL IV ONE (13:51)
[2020-06-18] MEDS ORDERED: PROPOFOL 1,000 MG in PREMIX 1 BAG IV SCH (13:51)
[2020-06-18] MEDS ORDERED: DEXTROSE 31 GM ORAL.SUSP PO PRN (13:51)
[2020-06-18] MEDS ORDERED: PHENYLEPHRINE 10 MG/ML VIAL ONE (13:51)
[2020-06-18] MEDS ORDERED: DEXTROSE 50% 50 ML VIAL IV PRN (13:51)
[2020-06-18] MEDS ORDERED: ONDANSETRON 4 MG/2 ML VIAL ONE (13:51)
[2020-06-18] MEDS ORDERED: DEXAMETHASONE 10 MG/ML VIAL ONE (13:51)
[2020-06-18] MEDS ORDERED: 0.9 % SODIUM CHLORIDE 10 ML SYRINGE IV PRN (13:51)
[2020-06-18] MEDS ORDERED: MIDAZOLAM 2 MG/2 ML VIAL IV PRN (13:51)
[2020-06-18] MEDS ORDERED: TPN PER PHARMACY IV SCH (13:51)
[2020-06-18] MEDS ORDERED: LIDOCAINE HCL/PF 100 MG/5 ML SYRINGE IV ONE (13:51)
[2020-06-18] MEDS ORDERED: ESMOLOL 100 MG/10 ML VIAL IV ONE (13:51)
[2020-06-18] MEDS ORDERED: fentaNYL 100 MCG/2 ML VIAL IV ONE (13:51)
[2020-06-18] MEDS ORDERED: NALOXONE HCL 0.4 MG/ML VIAL IV PRN (13:51)
[2020-06-18] MEDS ORDERED: PROPOFOL 200 MG/20 ML VIAL IV ONE (13:51)
[2020-06-18] MEDS ORDERED: MIDAZOLAM 5 MG/5 ML VIAL ONE (13:51)
[2020-06-18] MEDS ORDERED: ALBUTEROL SULFATE 200 PUFF INHALER IH PRN (13:51)
[2020-06-18] MEDS: MEROPENEM 0.5 GM in 0.9 % SODIUM CHLORIDE 50 ML IV SCH ×2 (13:57→21:15)
[2020-06-18] MEDS ORDERED: NOREPINEPHRINE BITARTRATE 16 MG in 0.9 % SODIUM CHLORIDE 234 ML IV SCH (14:00)
[2020-06-18] MEDS ORDERED: NOREPINEPHRINE BITARTRATE 16 MG in 0.9 % SODIUM CHLORIDE 234 ML IV PRN (14:15)
--- NOTE | 2020-06-18 15:18 | XRay Report ---
HISTORY: Fell, chest and abdominal pain, evaluate for pulmonary infiltrate FINDINGS: there are several bands of atelectasis in the left lower lobe extending up to the level of the hilum. Minor atelectasis is present in the right posterior costophrenic sulcus. There is a tiny right-sided pleural effusion. Heart size is normal. There is no pulmonary vascular congestion, widening of the mediastinum or pneumothorax. Nasogastric tube is in the fundus of the stomach and there is a right internal jugular line in the superior vena cava. Comparison with the prior exam from 06/17/20 shows the patient has been extubated. The atelectasis in the lung bases has become worse. IMPRESSION: Bibasilar atelectasis, left greater than right Interpreted and Authenticated by: Fransico Candelario 06/18/20
--- NOTE | 2020-06-18 15:43 | XRay Report ---
HISTORY: Follow-up ileus lower abdominal pain FINDINGS: Stomach is decompressed by a nasogastric tube. The tip is in the fundus. Large and small bowel are decompressed. There is no evidence of obstruction, ileus or free intra-abdominal air. Multiple surgical skin jessica are present in the midline of the pelvis. Degenerative changes are noted in the lumbar spine. IMPRESSION: Normal bowel gas pattern Interpreted and Authenticated by: Fransico Candelario 06/18/20
[2020-06-18] MEDS: diphenhydrAMINE 12.5 MG/5 ML ORAL.SOL PT PRN (19:50)
[2020-06-18] MEDS: FAMOTIDINE/PF 20 MG/2 ML VIAL IV SCH (21:08)
[2020-06-19] MEDS: ACETAMINOPHEN 650 MG/65 ML BAG IV PRN ×2 (02:26→18:20)
[2020-06-19] MEDS: 0.9 % SODIUM CHLORIDE 250 ML IV SCH ×2 (04:22→14:21)
[2020-06-19] MEDS: 0.9 % SODIUM CHLORIDE 10 ML SYRINGE IV SCH ×5 (05:22→21:50)
[2020-06-19] MEDS: INSULIN LISPRO 1 UNIT/0.01 ML UNIT SQ SCH ×4 (05:52→23:24)
[2020-06-19] MEDS: LEVOTHYROXINE 100 MCG VIAL IV SCH (06:41)
[2020-06-19 06:46] LABS: Basophils # (Auto) 0.15 K/mcL (0.00-0.20); Basophils % (Auto) 0.6 % (0.0-2.0); Eosinophils # (Auto) 0.76 K/mcL (0.00-0.70); Eosinophils % (Auto) 3.1 % (0.0-7.0); Hematocrit 29.8 % (36.0-48.0); Hemoglobin 9.7 g/dL (12.0-15.0); Lymphocytes # (Auto) 1.74 K/mcL (1.50-4.80); Lymphocytes % (Auto) 7.2 % (15.0-49.0); Mean Cell Volume 91.7 fL (80.0-100.0); Mean Corpuscular HGB Conc 32.6 g/dL (31.0-36.0); Mean Platelet Volume 11.8 fL (7.4-10.4); Monocytes % (Auto) 2.9 % (1.0-12.0); Platelet Count 166 K/mcL (140-440); RBC 3.25 M/mcL (4.00-5.20); Red Cell Distribution Width 14.5 % (11.5-14.5); WBC 24.2 K/mcL (4.5-11.0)
[2020-06-19 07:07] LABS: ALT/SGPT 22 U/L (<40); AST/SGOT 27 U/L (<32); Albumin/Globulin Ratio 0.7 (1.0-2.3); Alkaline Phosphatase 82 U/L (39-117); Bilirubin,Direct < 0.2 mg/dL (<0.3); Bilirubin,Total 0.4 mg/dL (0.1-1.0); Blood Urea Nitrogen 59 mg/dL (8-23); Calcium 7.8 mg/dL (8.6-10.4); Carbon Dioxide 20 mmol/L (22-30); Chloride 111 mmol/L (96-108); Glomerular Filtration Rate 16; Glucose 142 mg/dL (70-105); Lactate Dehydrogenase 293 U/L (135-225); Phosphorous 2.6 mg/dL (2.5-4.5); Triglycerides 185 mg/dL (<150); Uric Acid 7.2 mg/dL (2.5-8.0)
[2020-06-19 07:34] LABS: Neutrophils % (Auto) 86.2 % (38.0-78.0)
--- NOTE | 2020-06-19 08:09 | Nephrology Progress Note ---
SUBJECTIVE Subjective Patient information: Note initiated : 06/19/20 at 8:04 am Patient: Anita Casas 69 y/o F admitted on 06/12/20 for Fall, Low Abd Pain. Chief Complaint: Weakness Principal diagnosis: Small bowel obstruction with perforation Pertinent ROS: Weakness NG tube Suprapubic catheter Clear urine Constitutional Vitals: Vital Signs Temp Pulse Resp BP Pulse Ox 97.9 F 101 H 31 H 119/82 100 06/19/20 05:01 06/19/20 07:01 06/19/20 07:01 06/19/20 07:01 06/19/20 07:32 Period Temp Pulse Resp BP Sys/Santizo Pulse Ox Last 24 Hr 97.5 F-100.1 F 89-101 18-38 94-126/42-96 95-100 Intake and Output 06/18/20 06/19/20 06/19/20 21:59 05:59 13:59 Intake Total 1213.5455 65 0 Output Total 980 860 145 Balance 233.5455 -795 -145 Weight 254 lb 3.2 oz Intake & Output: Intake & Output 06/18/20 06/19/20 06/19/20 21:59 05:59 13:59 Intake Total 1213.5455 65 0 Output Total 980 860 145 Balance 233.5455 -795 -145 Weight 254 lb 3.2 oz Intake: IV 1213.5455 65 Calcium Gluconate 4.65 Meq 1048.5455 Magnesium Sulfate 16.24 Meq Sodium Chloride 40 Meq Potassium Chloride 20 Meq Potassium Phosphate 20 Meq Infuvite Adult 10 ml In Clinimix 5%-20% Solution 1,000 ml @ 40 mls/hr IV Q24H [facility] Rx#: [id number] Merrem 0.5 gm In Sodium 100 Chloride 0.9% 50 ml @ 100 mls/ hr IV Q12H [facility] Rx#:[id number] Tube Feeding 0 0 0 Output: Gastric Drainage 450 350 Right Nare 450 350 Urine Catheter Amount 530 510 145 Other: Urine Appearance Clear Clear Clear Suprapubic Clear Clear Urine Color Bright Yellow Dark Yellow Bright Yellow Suprapubic Light Cande Bright Yellow Light Cande Urine Odor Normal Normal Normal Stool Size Moderate Small Stool Color Brown Brown Stool Consistency Liquid Liquid Loose Cecile # Bowel Movements 1 # of times incontinent of 1 Bowels General appearance: cooperative, morbidly obese and no acute distress Head Head exam: Present atraumatic and normal inspection ENT Additional comments: NG tube Respiratory Respiratory exam: Present decreased breath sounds Cardiovascular Cardiovascular exam: Present normal rate and rhythm GI/Abdominal GI/Abdominal exam: Present soft Neurological Exam Neurological exam: Present alert Psychiatric Psychiatric exam: Present normal affect and normal mood Skin Skin exam: Present pallor A/P Assessment and plan (1) Acute renal failure with acute tubular necrosis superimposed on stage 4 chronic kidney disease: Assessment and plan: Anita Casas is a 67-year-old female with CKD stage G4/A3 associated with hypertensive nephrosclerosis, neurogenic bladder s/p suprapubic catheter and 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 She had exploratory laparotomy, abdominal washout, small bowel resection for incarcerated incisional hernia with small perforation likely secondary to trauma from her previous fall on 06/12/20. Acute kidney injury, likely acute tubular injury on chronic kidney disease stage G4/A3, present on arrival. Work up: Urinalysis on 06/12/20: Yellow, Clear, pH 8.0, SG 1.018, protein >500, blood 0.03, leukocyte esterase 75. CT Abdomen and Pelvis without contrast on 06/11/20: Marked bilateral renal atrophy compatible with end-stage renal failure stable. Progress: Serum creatinine increased from 2.8 to 2.9 (eGFR 16) in the past 24 hours. Baseline serum creatinine: 2.1 to 2.4 (eGFR 20-24). Hypokalemia and metabolic acidosis, managed by TPN. Extubated on 06/17/20. Off IV pressors on 06/17/20. Receiving TPN. Recommendations/Plan: No urgent acute hemodialysis need. Avoid NSAIDs, nephrotoxic medications and IV contrast. Monitor BMP and urine output. Status: Acute (2) Metabolic acidosis: Status: Acute Time Spent With Patient Time: Total time spent is greater than 50% in coordination of care (as documented) at patient's floor/unit and/or counseling patient:
[2020-06-19] MEDS: CHLORHEXIDINE GLUCONATE 1 ML ORAL.SOL SWABMOUTH SCH ×2 (08:30→20:51)
[2020-06-19] MEDS: HEPARIN 5,000 UNIT/ML VIAL SQ SCH ×2 (08:30→20:52)
[2020-06-19] MEDS: MEROPENEM 0.5 GM in 0.9 % SODIUM CHLORIDE 50 ML IV SCH ×2 (08:30→21:16)
[2020-06-19] MEDS: IPRATROPIUM/ALBUTEROL 3 ML AMPUL.NEB NEB SCH ×2 (08:58→21:16)
[2020-06-19] MEDS: BUDESONIDE 0.5 MG/2 ML AMPUL.NEB NEB SCH ×2 (08:58→21:16)
[2020-06-19] MEDS ORDERED: POTASSIUM CHLORIDE 40 MEQ in DEXTROSE 5% IN WATER 500 ML IV ONE (10:00)
[2020-06-19] MEDS: HYDROmorphone 1 MG/ML SYRINGE IV PRN (11:20)
--- NOTE | 2020-06-19 11:55 | Internal Med Progress Note ---
SUBJECTIVE Subjective Patient information: Note initiated : 06/19/20 at 11:50 am Service Date, if different from initiated Date: [] Patient: Anita Casas 69 y/o F admitted on 06/12/20 for Fall, Low Abd Pain. Chief Complaint: [] Principal diagnosis: Small bowel obstruction with perforation Interval history: 06/12 Presents to the ED with fall and lower abdominal pain. She says she was doing relatively well until around the time she fell became very weak complained of abdominal pain bloating. She had some vomiting. She takes morphine for chronic pain took that prior. Complaint feeling her legs being weak and typically is a walker. Is generalized weakness. But does not complain of any chest pain. She has chronic cough and shortness of breath and is on oxygen. But no change. Abdominal pain is diffuse all over crampy and sharp. Initial labs are unremarkable. Work-up in the ED revealed how appear to be a small bowel obstruction. Surgeon was contacted. Patient is fairly unremarkable overnight but then became unresponsive on the floor and with the systolic blood pressure in the 60s. She was bolused with 1250 cc which brought her blood pressure back up however she started dipping again was put on Levophed another liter 1500 cc given. Then we lost IV access and a central line was placed. She is awake and answering questions though somewhat lethargic. 3/ Patient did not show much improvement overnight. Urine output remains poor. Renal function slightly worse. She woke up last night being off sedation and was able to interact with manager night but because of pulling at lines and agitation sedation was placed back on and then removed this morning. We will continue to hold and attempt weaning trial. Still requiring vasopressors, have been able to titrate down some overnight. Spent some time with her son the other day discussing her current state of health and the guarded prognosis. He seemed to understand. No bowel movement per nursing. Unable to gather review of systems given intubation status. *I talked with her son Angus over the phone regarding her current critical state. After some time on the phone it was decided to change her CODE STATUS to DO NOT RESUSCITATE, with the caveat of continuing aggressive measures as are currently being undertaken. Continue mechanical ventilation. But if her situation declines or she has a cardiac event we will likely transition to c omfort focus. 3/ Good urine output last night. Creatinine a little bit worse likely has not peaked from probable ATN. No other significant changes. 06/15 No sedation overnight other than 0.5 mg IV Dilaudid x2. She responds to touch and sternal rub partially opening her eyes. Has been off sedation since 06/13 but has had intermittent fentanyl or dilaudid. He was on tube feedings yesterday however she started having high residuals and increased NG output to that was on hold. Leukocytosis resolved. Renal function slightly improved. 06/16 Patient was off propofol most of yesterday, with some spontaneous movement but not to command or seemingly purposeful. Became tachypneic and started overriding the vent about 1030 last night, required bagging, eventually Precedex, then propofol were resumed with calm the patient. Was on Levophed because of hypotension associated with propofol. This morning propofol again weaned down. Treated with IV acetaminophen as well as hydromorphone, which seemed to relax the patient. This afternoon, nodding yes or no to questions, interacting to some extent with her family. Had 40-minute family conference with the patient's son and daughter. We will continue to provide aggressive care, CODE STATUS remains DO NOT RESUSCITATE. 06/17 Patient continues to arouse, follow instructions. Tolerated spontaneous breathing trial for about an hour today, then became a little tachypneic and return to assist control. She is able to open her eyes nod or shake her head yes or no, moves extremities to command. Remains on 30% FiO2 with good oxygenation, ventilating easily with good pressures. Size 7 endotracheal tube may be contributing to her fatigue with prolonged SBT. Trial of clamping NG tube overnight, but still having significant output. Remains on low-dose norepinephrine while lightly sedated with propofol. Platelets slightly improved to 117K, creatinine down to 3.2 (3.5 yesterday). 06/18 Patient was extubated early afternoon yesterday. Was on BiPAP for little bit for work of breathing in the evening, but is done well since. Is not requiring any supplemental oxygen this morning. Awake and alert. Labs show white count up to 24,000. She has had no fever. Started on TPN yesterday afternoon. Still with significant NG tube output after its unclamped. Did have bowel movement yesterday, was loose but not watery. 06/19 Patient more talkative today. Agrees to work with physical therapy. Did not have any significant NG output after clamping, has been started on trickle tube feeds. Had bowel movement yesterday that was loose but not watery, 1 on manager night described as linda. No watery/greenish BMs. Chest x-ray yesterday was clear, abdominal film with normal bowel gas patterns. White count remains 24,000. Pertinent ROS: Does complain of some abdominal pain with palpation, though a ppears appropriate for postop state. Denies shortness of breath. No nausea. Tolerating low volume tube feeds. Constitutional Vitals: Vital Signs Temp Pulse Resp BP Pulse Ox 98.1 F 103 H 25 H 143/63 100 06/19/20 08:06 06/19/20 11:01 06/19/20 11:01 06/19/20 11:01 06/19/20 11:01 Period Temp Pulse Resp BP Sys/Santizo Pulse Ox Last 24 Hr 97.5 F-100.1 F 89-103 18-38 94-144/42-101 96-100 Intake and Output 06/18/20 06/19/20 06/19/20 21:59 05:59 13:59 Intake Total 1213.5455 65 50 Output Total 980 860 295 Balance 233.0233 -215 -936 Weight 254 lb 3.2 oz 254 lb 3.2 oz Patient Weight 06/20/20 05:59 Weight 254 lb 3.2 oz GENERAL: Laying in bed no acute distress RESPIRATORY: Clear anterior laterally, respirations are unlabored CARDIOVASCULAR: Regular rate and rhythm ABDOMEN: Nondistended, few bowel sounds present, incision with dry dressing, appropriate postop tenderness with palpation EXTREMITIES: No edema in the lower extremities NEURO: Alert, awake, oriented to self, place and situation. Intake & Output: Intake & Output 06/18/20 06/19/20 06/19/20 21:59 05:59 13:59 Intake Total 1213.5455 65 50 Output Total 980 860 295 Balance 233.8298 -795 -681 Weight 254 lb 3.2 oz 254 lb 3.2 oz Intake: IV 1213.5455 65 50 Calcium Gluconate 4.65 Meq 1048.5455 Magnesium Sulfate 16.24 Meq Sodium Chloride 40 Meq Potassium Chloride 20 Meq Potassium Phosphate 20 Meq Infuvite Adult 10 ml In Clinimix 5%-20% Solution 1,000 ml @ 40 mls/hr IV Q24H [facility] Rx#: [id number] Merrem 0.5 gm In Sodium 100 50 Chloride 0.9% 50 ml @ 100 mls/ hr IV Q12H [facility] Rx#:[id number] Tube Feeding 0 0 0 Output: Gastric Drainage 450 350 Right Nare 450 350 Urine Catheter Amount 530 510 295 Other: Urine Appearance Clear Clear Clear Suprapubic Clear Clear Urine Color Bright Yellow Dark Yellow Dark Yellow Suprapubic Light Cande Bright Yellow Light Cande Urine Odor Normal Normal Normal Stool Size Moderate Small Stool Color Brown Brown Stool Consistency Liquid Liquid Loose Linda # Bowel Movements 1 # of times incontinent of 1 Bowels OBJ DATA Labs CBC & Chem 7: 06/19/20 04:52 06/19/20 04:52 Labs: Abnormal Lab Results 06/19/20 06/19/20 06/18/20 04:52 04:52 05:14 WBC 24.2 H RBC 3.25 L Hgb 9.7 L Hct 29.8 L Plt Count MPV 11.8 H Neut % (Auto) 86.2 H Lymph % (Auto) 7.2 L Lymph # (Auto) Eos # (Auto) 0.76 H Absolute Neutrophils 20.86 H Potassium 3.2 L 3.1 L Chloride 111 H 109 H Carbon Dioxide 20 L 19 L BUN 59 H 58 H Creatinine 2.9 H 2.8 H Glucose 142 H 119 H Uric Acid Calcium 7.8 L 8.0 L Phosphorus 2.4 L AST 34 H Lactate Dehydrogenase 293 H 314 H Total Protein 5.0 L 5.2 L Albumin 2.0 L 2.1 L Albumin/Globulin Ratio 0.7 L 0.7 L Prealbumin Triglycerides 185 H 189 H TSH 06/18/20 06/17/20 06/17/20 05:14 11:43 05:48 WBC 24.5 H RBC 3.45 L Hgb 10.4 L Hct 31.8 L Plt Count 135 L MPV 11.2 H Neut % (Auto) 88.8 H Lymph % (Auto) 5.4 L Lymph # (Auto) 1.33 L Eos # (Auto) Absolute Neutrophils 21.69 H Potassium Chloride Carbon Dioxide 21 L BUN 62 H Creatinine 3.1 H Glucose 116 H Uric Acid 8.2 H Calcium 7.8 L Phosphorus AST 37 H Lactate Dehydrogenase 339 H Total Protein 5.1 L Albumin 1.7 L Albumin/Globulin Ratio 0.5 L Prealbumin 5.3 L Triglycerides 193 H TSH 23.34 H 06/17/20 06/17/20 05:48 05:48 WBC 15.2 H RBC 3.30 L Hgb 10.0 L Hct 31.2 L Plt Count 117 L MPV 11.0 H Neut % (Auto) 85.8 H Lymph % (Auto) 7.9 L Lymph # (Auto) 1.21 L Eos # (Auto) Absolute Neutrophils 13.08 H Potassium Chloride Carbon Dioxide 19 L BUN 61 H Creatinine 3.2 H Glucose Uric Acid 8.3 H Calcium 8.0 L Phosphorus AST 42 H Lactate Dehydrogenase 357 H Total Protein 5.1 L Albumin 1.8 L Albumin/Globulin Ratio 0.5 L Prealbumin Triglycerides 204 H TSH Meds: Medications Albuterol Sulfate (Albuterol Sulfate 200 Puff Inhaler) 2 puff IH Q4-6HP PRN PRN Reason: shortness of breath or wheezin Albuterol/Ipratropium (Ipratropium/Albuterol 3 Ml Ampul.Neb) 3 ml NEB Q12H [facility] Last Admin: 06/19/20 08:58 Dose: 3 ml Documented by: Albuterol/Ipratropium (Ipratropium/Albuterol 3 Ml Ampul.Neb) 3 ml NEB Q4HP PRN PRN Reason: Shortness Of Breath Budesonide (Budesonide 0.5 Mg/2 Ml Ampul.Neb) 0.5 mg NEB Q12 [facility] Last Admin: 06/19/20 08:58 Dose: 0.5 mg Documented by: Chlorhexidine Gluconate (Chlorhexidine Gluconate 1 Ml Oral.Ashley) 15 ml SWABMOUTH BID [facility] Last Admin: 06/19/20 08:30 Dose: 15 ml Documented by: Dextrose (Dextrose 50% 50 Ml Vial) 0 ml IV UD PRN PRN Reason: Hypoglycemia Diagnostic Test (Pha) (Accu-Chek 1 Each Strip) 1 each FS Q6 [facility] Last Admin: 06/19/20 11:26 Dose: 1 each Documented by: Diphenhydramine HCl (Diphenhydramine 12.5 Mg/5 Ml Oral.Ashley) 25 mg PT HSP PRN PRN Reason: insomnia Last Admin: 06/18/20 19:50 Dose: 25 mg Documented by: Famotidine (Famotidine/Pf 20 Mg/2 Ml Vial) 20 mg IV QHS [facility] Last Admin: 06/18/20 21:08 Dose: 20 mg Documented by: Glucose (Dextrose 31 Gm Oral.Susp) 15 gm PO PRN PRN PRN Reason: Hypoglycemia Heparin Sodium (Porcine) (Heparin 5,000 Unit/Ml Vial) 5,000 unit SQ Q12 [facility] Last Admin: 06/19/20 08:30 Dose: 5,000 unit Documented by: Hydromorphone HCl (Hydromorphone 1 Mg/Ml Syringe) 0.25 - 0.5 mg IV Q2HP PRN; Protocol PRN Reason: Per Pain Protocol Last Admin: 06/19/20 11:20 Dose: 0.5 mg Documented by: Calcium Gluconate 10 meq/Magnesium Sulfate 32.48 meq/Sodium Chloride 20 meq/Po tassium Chloride 40 meq/Potassium Phosphate 60 meq/Multivitamins/Minerals 10 ml/Amino Acids 2,078.1417 mls @ 80 mls/hr IV Q24H [facility] Stop: 06/19/20 12:59 Sodium Chloride (Sodium Chloride 0.9%) 250 mls @ 20 mls/hr IV .[id number] [facility] Last Admin: 06/19/20 04:22 Dose: Not Given Documented by: Acetaminophen (Ofirmev) 650 mg in 65 mls @ 130 mls/hr IV Q6HP PRN; Protocol PRN Reason: Pain Last Infusion: 06/19/20 03:00 Dose: Infused Documented by: Meropenem 0.5 gm/ Sodium (Chloride) 50 mls @ 100 mls/hr IV Q12H [facility]; Protocol Last Infusion: 06/19/20 09:03 Dose: Infused Documented by: Norepinephrine Bitartrate 16 (mg/ Sodium Chloride) 250 mls @ 9.375 mls/hr IV Q24HP PRN; Protocol PRN Reason: TITRATE TO KEEP MAP > 65 Dextrose/Sodium Chloride (Dextrose 5%-1/2ns Iv Solution) 1,000 mls @ 20 mls/hr IV .Q24H [facility] Last Admin: 06/18/20 19:00 Dose: 20 mls/hr Documented by: Potassium Chloride 40 meq/ (Dextrose) 520 mls @ 130 mls/hr IV ONCE ONE Stop: 06/19/20 13:59 Last Admin: 06/19/20 10:24 Dose: 130 mls/hr Documented by: Insulin Human Lispro (Insulin Lispro 1 Unit/0.01 Ml Unit) 0 unit SQ Q6H [facility]; Protocol Last Admin: 06/19/20 11:29 Dose: 1 units Documented by: Levothyroxine Sodium (Levothyroxine 100 Mcg Vial) 100 mcg IV QAMAC [facility] Last Admin: 06/19/20 06:41 Dose: 100 mcg Documented by: Midazolam HCl (Midazolam 2 Mg/2 Ml Vial) 2 mg IV Q2HP PRN PRN Reason: Agitation Naloxone HCl (Naloxone Hcl 0.4 Mg/Ml Vial) 0.1 mg IV Q2MIN PRN PRN Reason: Opiate Reversal Sodium Chloride (0.9 % Sodium Chloride 10 Ml Syringe) 10 ml IV Q12 [facility] Last Admin: 06/19/20 08:30 Dose: 10 ml Documented by: Sodium Chloride (0.9 % Sodium Chloride 10 Ml Syringe) 10 ml IV Q8 [facility] Last Admin: 06/19/20 05:22 Dose: Not Given Documented by: Sodium Chloride (0.9 % Sodium Chloride 10 Ml Syringe) 10 ml IV UD PRN PRN Reason: FLUSH Imaging and cardiology Abdominal x-ray: Status: image reviewed by me Additional comments: Impression: Normal bowel gas pattern Chest x-ray: Status: image reviewed by me Additional comments: Impression: Bibasilar atelectasis, left greater than right A/P Narrative A/P Narrative: *SBO w/incarcerated hernia & small perforation: s/p Ex-lap washout SB resection (06/12), POD#7 -high-risk mortality state *Septic Shock: 2/2 above -vasopressors off (06/13), leukocytosis resolved -WBC increased 06/17 and 06/18, no apparent source -requiring some pressor support while on sedation, now off on 36 after extubation -Proteus mirabilis on urine culture, though may be colonization, will be adequately treated with piperacillin/tazobactam -Blood cultures from admission no growth final *Leukocytosis: White count is increased from normal 06/16 to 15,000 3 up to 24,000 3/ and 3 -Unclear etiology -Proteus in urine should be adequately treated with piperacillin/tazobactam -Chest x-ray with atelectasis, no new infiltrate -Looser stools, but not watery, though consider C. difficile if stools worsen *Remained intubated post-op: failed weaning trial for several daysresolved 06/17 with extubation -on 06/15 had good trial but not awake enough to follow any commands and no purposeful movements -more awake on 06/17, tolerated 1 hr SBT -Extubated early afternoon 06/17 *Encephalopathy: Suspect multifactorial from sepsis, critical illness. Pain may also be contributing. Starting to improve somewhat afternoon 06/16 -CT of brain without acute findings -Improving late 06/16 and 06/17, continues to improve *JUJU on CKD IV with Oliguria: was on HD in past no off, follows with Dr. Mcclain -suspect ATN -UOP improved -Cr continues to slowly improve *Metabolic Acidosis: 2/2 above, improved *Anemia, chronic: *Morbid obesity: *COPD (2L O2@home): Now on room air 06/18 *Hypothyroidism: TSH elevated, on IV levothyroxine while n.p.o. *Anxiety: *Suprapubic catheter chronic, neurogenic bladder: -[facility] changed this admit -Urine culture with >100K CFU/mL Proteus mirabilis, unclear if infection versus colonization *GERD: *Atelectasis *High mortality risk: guarded prognosis, though making slow progress over the past few days as of 06/19 Plan: * Follow white count, reculture if fever * If watery stool, send C. difficile * Recheck urine analysis, evaluate for drug-resistant infection to explain white count * Continue to titrate tube feeds as tolerated * Wean and discontinue TPN after this bag * Continue IV fluid while not taking p.o. * Continue to monitor UOP * Nephrology following * Continue IV zosyn * PT/OT -ppx: heparin/pepcid -CODE STATUS: DNR Time Spent With Patient Time: Total time spent is greater than 50% in coordination of care (as documented) at patient's floor/unit and/or counseling patient: Total time spent with greater than 50% in coordination of care (as documented) a t patient's floor/unit and/or counseling patient:: Greater than 35 minutes
[2020-06-19] MEDS ORDERED: TPN PER PHARMACY IV SCH (12:57)
[2020-06-19] MEDS ORDERED: POTASSIUM CHLORIDE IV SCH ×2 (13:00→14:00)
[2020-06-19] MEDS ORDERED: CALCIUM GLUCONATE IV SCH ×2 (13:00→14:00)
[2020-06-19] MEDS ORDERED: [UNRECOGNIZED DRUG - OTHER] IV SCH ×2 (13:00→14:00)
[2020-06-19] MEDS ORDERED: MAGNESIUM SULFATE IV SCH ×2 (13:00→14:00)
[2020-06-19] MEDS ORDERED: diphenhydrAMINE 50 MG/ML VIAL IV ONE (13:20)
--- NOTE | 2020-06-19 13:44 | General Surgery Progress Note ---
SUBJECTIVE Subjective Patient information: Note initiated : 06/19/20 at 1:43 pm Service Date, if different from initiated Date: [] Patient: Anita Casas 69 y/o F admitted on 06/12/20 for Fall, Low Abd Pain. Chief Complaint: [] Principal diagnosis: Small bowel obstruction with perforation Interval history: Patient is essentially unchanged. She is minimally disoriented. She has been afebrile. She does not answer questions directly. White blood count 24,200, hemoglobin 9.7, hematocrit 29.8, potassium 3.2, BUN 59, creatinine 2.9, O2 sats: 98 % on room air. She has been receiving tube feeds at 20 cc/h but she had 300 cc residual at 4 hours suggesting that she is not having good emptying of her stomach or small bowel. She did have a small bowel movement last evening. Constitutional Vitals: Vital Signs Temp Pulse Resp BP Pulse Ox 99.1 F H 104 H 26 H 107/52 100 06/19/20 12:00 06/19/20 13:00 06/19/20 13:00 06/19/20 13:00 06/19/20 13:00 Period Temp Pulse Resp BP Sys/Santizo Pulse Ox Last 24 Hr 97.9 F-100.1 F 89-104 18-38 94-144/42-101 96-100 Intake and Output 06/18/20 06/19/20 06/19/20 21:59 05:59 13:59 Intake Total 1213.5455 65 130 Output Total 980 860 425 Balance 233.5455 795 -295 Weight 254 lb 3.2 oz 254 lb 3.2 oz Patient Weight 06/20/20 05:59 Weight 254 lb 3.2 oz Intake & Output: Intake & Output 06/18/20 06/19/20 06/19/20 21:59 05:59 13:59 Intake Total 1213.5455 65 130 Output Total 980 860 425 Balance 233.5455 -795 -295 Weight 254 lb 3.2 oz 254 lb 3.2 oz Intake: IV 1213.5455 65 50 Calcium Gluconate 4.65 Meq 1048.5455 Magnesium Sulfate 16.24 Meq Sodium Chloride 40 Meq Potassium Chloride 20 Meq Potassium Phosphate 20 Meq Infuvite Adult 10 ml In Clinimix 5%-20% Solution 1,000 ml @ 40 mls/hr IV Q24H [facility] Rx#: [id number] Merrem 0.5 gm In Sodium 100 50 Chloride 0.9% 50 ml @ 100 mls/ hr IV Q12H [facility] Rx#:[id number] Tube Feeding 0 0 80 Output: Gastric Drainage 450 350 Right Nare 450 350 Urine Catheter Amount 530 510 425 Other: Urine Appearance Clear Clear Clear Suprapubic Clear Clear Urine Color Bright Yellow Dark Yellow Dark Yellow Suprapubic Light Cande Bright Yellow Light Cande Urine Odor Normal Normal Normal Stool Size Moderate Small Stool Color Brown Brown Stool Consistency Liquid Liquid Loose Cecile # Bowel Movements 1 # of times incontinent of 1 Bowels Head Head exam: Present atraumatic, normal inspection and normocephalic Eye Eye exam: Present EOMI, normal appearance and PERRL ENT ENT exam: Present mucous membranes moist and normal oropharynx Neck Neck exam: Present full ROM, normal inspection and tenderness Respiratory Respiratory exam: Present normal respiratory exam; Absent rales, rhonchi and wheezes Cardiovascular Cardiovascular exam: Present normal rate and rhythm, RRR, +S1 and +S2; Absent JVD GI/Abdominal GI/Abdominal exam: Present normal bowel sounds, distended, firm and tenderness (Lower abdomen and right lower quadrant tenderness); Absent mass Extremities Exam Extremities exam: Present full ROM, normal capillary refill and normal inspection; Absent pedal edema and tenderness Neurological Exam Additional comments: Patient is alert and awake but not aware. She is unable to answer questions correctly. 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 insulin use status Qualified Code(s): E11.40 - Type 2 diabetes mellitus with diabetic neuropathy, unspecified (4) Diabetes mellitus, type II: Status: Chronic Comment: HgA1c normal in 06/2019 Qualifiers: Chronic kidney disease stage: stage 4 (severe) Diabetes mellitus longterm insulin use: without longterm use Diabetes mellitus complication detail: with chronic kidney disease (5) Chronic obstructive pulmonary disease: Status: Chronic Qualifiers: COPD type: unspecified COPD Qualified Code(s): J44.9 - Chronic obstructive pulmonary disease, unspecified (6) Small bowel obstruction due to adhesions: Status: Acute (7) Adynamic ileus: Status: Acute Narrative A/P Narrative: Add Flagyl to meropenem for more comprehensive coverage CT of chest abdomen and pelvis Do not increase tube feeds until CT is complete Time Spent With Patient Time: Total time spent is greater than 50% in coordination of care (as documented) at patient's floor/unit and/or counseling patient:
[2020-06-19] MEDS: metroNIDAZOLE 500 MG/100 ML BAG IV SCH ×2 (14:20→17:50)
[2020-06-19 14:40] LABS: Appearance,Urine CLEAR (Clear); Bilirubin,Urine Negative (Negative); Color,Urine YELLOW; Culture Indicated,Urine No; Glucose,Urine (UA) Negative (Negative); Ketones,Urine Negative (Negative); Leukocyte Esterase,Urine Negative /ug (Negative); Mucus,Urine FEW /hpf; Nitrate,Urine Negative (Negative); Protein,Urine 30 mg/dL (Negative); Specific Gravity,Urine 1.016 (1.000-1.035); Urine Amorphous Crystals FEW /hpf; Urine Blood 0.03 mg/dL (Negative); Urine Hyaline Cast 3 /lph (0-2); Urine RBC 1 /hpf (0-3); Urine Squamous Epithelial Cell < 1 /hpf (0-4); Urine WBC 1 /hpf (0-4); Urobilinogen,Urine Negative
--- NOTE | 2020-06-19 15:06 | Cat Scan Report ---
History: febrile with elevated white blood cell count following recent resection of small bowel for small bowel obstruction or perforation. TECHNIQUE: The patient was imaged without contrast from the thoracic inlet through the symphysis pubis at 2.5 mm intervals. Sagittal and coronal reformats were created along with axial MIPS images of the chest. The radiation exposure was limited using dose reduction technology. CHEST: There are several thick band of scar or discoid atelectasis in both lower lobes. These have remained stable compared with the preoperative CT of the abdomen done on 06/11/20. Medially in the superior segment of lingula and there is a 1 x 16 mm sagittal and consolidated lung parenchyma. This was not seen preoperatively and probably represents atelectasis. Above this, anteriorly and medially in the left upper lobe there is a 8 x 10 mm irregular nodular density which is nonspecific and could be due to inflammatory change, atelectasis or less likely neoplasm. I have no prior chest CT for comparison. The right upper lobe and middle lobe are clear. No pleural effusion or empyema are present. The heart size is normal. There is nasogastric tube passing through the esophagus into the stomach. There is a small amount of fluid in the spinal esophagus. No enlarged lymph nodes are present. Abdomen and pelvis: Evaluation of abdominal organs without contrast is somewhat limited. The liver and spleen are normal in size and homogeneous. The gallbladder is surgically absent. The bile ducts are nondilated. Is no evidence of pancreatic mass or inflammation. The adrenals are normal and symmetric. There is severe atrophy of both kidneys patient has developed mild hydronephrosis in the right kidney. Proximal right ureter measures up to 1 cm. This tapers to normal caliber above the iliac crests and there is no evidence of a stone or mass in or adjacent to the ureter. Left ureter is decompressed. Patient has a suprapubic catheter causing complete decompression of the bladder. Moderate amount of fluid is present in the stomach. NG tube in the fundus of the stomach. Is also a large amount of fluid in the duodenum and jejunum. There is a row of anastomotic sutures in the small bowel in the right upper quadrant. This segment of bowel is dilated measures up to 5.8 cm. The wall does not appear to be abnormally thickened. There is gradual tapering to normal caliber distal ileum. There is some retained contrast in the large intestine following the prior CT scan. There is also stool in the colon. Several noninflamed diverticula are seen in the sigmoid colon. There is no evidence of acute diverticulitis. There is a ventral hernia to the right of midline which contains mostly fluid but also a little air. It measures 4.3 x 8.1 x 12.2 cm. This is much smaller today than it was preoperatively. Preoperative of a contained bowel. No longer contains bowel. There are small bubbles of air in the peritoneal space beneath the anterior abdominal wall near the site of the hernia. There is also moderate edema in the mesentery. Small amount of ascites is present, predominantly located deep in the pelvis. Abscess is not identified. There is a second hernia along the left lateral abdominal wall seen on axial image #135. It contains a non entrapped segment of ascending colon. The hernia is unchanged from the prior exam. Patient has anasarca with significant subcutaneous edema throughout the wall of the abdomen and pelvis and thighs. Advanced degenerative disc disease is present multiple levels in the lumbar spine. There is grade 1 spondylolisthesis at L4-5. IMPRESSION: Postoperative ileus with the greatest dilatation located in the jejunum at the level of the recent anastomosis. Mesenteric edema and small amount of ascites No abscess is identified Mild hydronephrosis in right kidney. Atelectasis in both lungs Dr. Garcia was called with the report Dr. Garcia was called with report Interpreted and Authenticated by: Frnasico Candelario 06/19/20
[2020-06-19] MEDS: IPRATROPIUM/ALBUTEROL 3 ML AMPUL.NEB NEB PRN (17:24)
[2020-06-19] MEDS: METOCLOPRAMIDE 10 MG/2 ML VIAL IV SCH (17:50)
[2020-06-19] MEDS ORDERED: METOCLOPRAMIDE 10 MG/2 ML VIAL IV SCH (18:00)
[2020-06-19] MEDS: DEXTROSE 5%-1/2NS 1,000 ML IV SCH ×2 (18:04→19:02)
[2020-06-19] MEDS: 0.9 % SODIUM CHLORIDE 10 ML SYRINGE IV PRN (18:20)
[2020-06-19] MEDS: FAMOTIDINE/PF 20 MG/2 ML VIAL IV SCH (20:52)
[2020-06-20] MEDS: METOCLOPRAMIDE 10 MG/2 ML VIAL IV SCH ×5 (00:01→23:59)
[2020-06-20] MEDS: metroNIDAZOLE 500 MG/100 ML BAG IV SCH ×5 (00:20→23:54)
[2020-06-20] MEDS: diphenhydrAMINE 12.5 MG/5 ML ORAL.SOL PT PRN ×2 (00:40→18:41)
[2020-06-20] MEDS: IPRATROPIUM/ALBUTEROL 3 ML AMPUL.NEB NEB PRN ×2 (02:17→16:20)
[2020-06-20] MEDS: HYDROmorphone 1 MG/ML SYRINGE IV PRN ×2 (02:26→08:08)
[2020-06-20] MEDS ORDERED: MIDAZOLAM 2 MG/2 ML VIAL IV ONE (04:54)
[2020-06-20] MEDS: ACETAMINOPHEN 650 MG/65 ML BAG IV PRN (04:57)
[2020-06-20] MEDS: 0.9 % SODIUM CHLORIDE 250 ML IV SCH ×2 (05:39→15:18)
[2020-06-20] MEDS: INSULIN LISPRO 1 UNIT/0.01 ML UNIT SQ SCH ×4 (05:47→23:53)
[2020-06-20] MEDS: 0.9 % SODIUM CHLORIDE 10 ML SYRINGE IV SCH ×5 (05:50→23:51)
[2020-06-20 07:05] LABS: ALT/SGPT 19 U/L (<40); AST/SGOT 25 U/L (<32); Albumin 2.2 gm/dL (3.2-5.2); Albumin/Globulin Ratio 0.7 (1.0-2.3); Alkaline Phosphatase 113 U/L (39-117); Bilirubin,Direct < 0.2 mg/dL (0-0.3); Bilirubin,Total 0.3 mg/dL (0.1-1.0); Blood Urea Nitrogen 61 mg/dL (8-23); Calcium 7.8 mg/dL (8.6-10.4); Carbon Dioxide 16 mmol/L (22-30); Chloride 113 mmol/L (96-108); Globulin 3.2 gm/dL (2.2-3.7); Glomerular Filtration Rate 16; Glucose 142 mg/dL (70-105); Lactate Dehydrogenase 341 U/L (135-225); Phosphorous 3.9 mg/dL (2.5-4.5); Triglycerides 161 mg/dL (<150); Uric Acid 7.5 mg/dL (2.5-8.0)
[2020-06-20 07:27] LABS: Basophils # (Auto) 0.11 K/mcL (0.00-0.20); Basophils % (Auto) 0.5 % (0.0-2.0); Eosinophils # (Auto) 0.36 K/mcL (0.00-0.70); Eosinophils % (Auto) 1.5 % (0.0-7.0); Hematocrit 29.8 % (36.0-48.0); Hemoglobin 9.8 g/dL (12.0-15.0); Lymphocytes # (Auto) 1.66 K/mcL (1.50-4.80); Lymphocytes % (Auto) 6.9 % (15.0-49.0); Mean Cell Volume 91.4 fL (80.0-100.0); Mean Corpuscular HGB Conc 32.9 g/dL (31.0-36.0); Mean Platelet Volume 11.7 fL (7.4-10.4); Monocytes # (Auto) 1.09 K/mcL (0.10-0.90); Monocytes % (Auto) 4.5 % (1.0-12.0); Neutrophils % (Auto) 86.6 % (38.0-78.0); Platelet Count 220 K/mcL (140-440); RBC 3.26 M/mcL (4.00-5.20); Red Cell Distribution Width 14.6 % (11.5-14.5); WBC 24.2 K/mcL (4.5-11.0)
--- NOTE | 2020-06-20 07:36 | Nephrology Progress Note ---
SUBJECTIVE Subjective Patient information: Note initiated : 06/20/20 at 7:32 am Patient: Anita Casas 69 y/o F admitted on 06/12/20 for Fall, Low Abd Pain. Chief Complaint: Weakness Principal diagnosis: Small bowel obstruction with perforation Pertinent ROS: NG tube Weakness Tachypnea Constitutional Vitals: Vital Signs Temp Pulse Resp BP Pulse Ox 98.3 F 97 H 45 H 106/75 100 06/20/20 07:00 06/20/20 07:15 06/20/20 07:15 06/20/20 07:00 06/20/20 07:15 Period Temp Pulse Resp BP Sys/Santizo Pulse Ox Last 24 Hr 97.4 F-99.1 F 91-110 20-48 90-146/45-101 97-100 Intake and Output 06/19/20 06/20/20 06/20/20 21:59 05:59 13:59 Intake Total 3480.1417 273 Output Total 717 925 33 Balance 2763.1417 -652 -33 Weight 249 lb 4.8 oz Intake & Output: Intake & Output 06/19/20 06/20/20 06/20/20 21:59 05:59 13:59 Intake Total 3480.1417 273 Output Total 717 925 33 Balance 2763.1417 -652 -33 Weight 249 lb 4.8 oz Intake: IV 3394.1417 273 Calcium Gluconate 10 Meq 2078.1417 Magnesium Sulfate 32.48 Meq Sodium Chloride 20 Meq Potassium Chloride 40 Meq Potassium Phosphate 60 Meq Infuvite Adult 10 ml In Clinimix 5%-20% Solution 2,000 ml @ 80 mls/hr IV Q24H [facility] Rx#: [id number] Dextrose 5%-1/2Ns IV Solution 1 481 108 ,000 ml @ 20 mls/hr IV .Q24H [facility] Rx#:[id number] Merrem 0.5 gm In Sodium 50 Chloride 0.9% 50 ml @ 100 mls/ hr IV Q12H [facility] Rx#:[id number] Potassium Chloride 40 Meq In 520 Dextrose 5% in Water 500 ml @ 130 mls/hr IV ONCE ONE Rx#: [id number] Tube Feeding 86 0 Output: Gastric Drainage 175 525 Right Nare 175 525 Urine Catheter Amount 542 400 33 Other: Urine Appearance Clear Clear Suprapubic Clear Urine Color Bright Yellow Bright Yellow Light Cande Suprapubic Bright Yellow Urine Odor Normal Stool Size Small Small Stool Color Brown Brown Stool Consistency Liquid Cecile Cecile # Bowel Movements 1 # of times incontinent of 1 Bowels General appearance: cooperative and morbidly obese Head Head exam: Present atraumatic and normal inspection Respiratory Respiratory exam: Present respiratory distress (tachypnea) Cardiovascular Cardiovascular exam: Present normal rate and rhythm GI/Abdominal GI/Abdominal exam: Present soft Neurological Exam Neurological exam: Present alert Psychiatric Psychiatric exam: Present normal mood Skin Skin exam: Present pallor A/P Assessment and plan (1) Acute renal failure with acute tubular necrosis superimposed on stage 4 chronic kidney disease: Assessment and plan: Anita Casas is a 67-year-old female with CKD stage G4/A3 associated with hypertensive nephrosclerosis, neurogenic bladder s/p suprapubic catheter and 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 She had exploratory laparotomy, abdominal washout, small bowel resection for incarcerated incisional hernia with small perforation likely secondary to trauma from her previous fall on 06/12/20. Acute kidney injury, likely acute tubular injury on chronic kidney disease stage G4/A3, present on arrival. Work up: Urinalysis on 06/12/20: Yellow, Clear, pH 8.0, SG 1.018, protein >500, blood 0.03, leukocyte esterase 75. CT Abdomen and Pelvis without contrast on 06/11/20: Marked bilateral renal atrophy compatible with end-stage renal failure stable. CT Chest, Abdomen and Pelvis without contrast on 06/19/20: Postoperative ileus with the greatest dilatation located in the jejunum at the level of the recent anastomosis. Mesenteric edema and small amount of ascites. No abscess is identified. Mild hydronephrosis in right kidney. Atelectasis in both lungs. Progress: Serum creatinine 2.9 (eGFR 16), did not change in the past 24 hours. Baseline serum creatinine: 2.1 to 2.4 (eGFR 20-24). Extubated on 06/17/20. Off IV pressors on 06/17/20. Receiving TPN. Recommendations/Plan: Sodium Bicarbonate 150 mEq in 1L D5W at 50 ml/hour for persistent metabolic acidosis with tachypnea. No urgent acute hemodialysis need. Avoid NSAIDs, nephrotoxic medications and IV contrast. Monitor BMP and urine output. Status: Acute (2) Metabolic acidosis: Status: Acute Time Spent With Patient Time: Total time spent is greater than 50% in coordination of care (as documented) at patient's floor/unit and/or counseling patient:
[2020-06-20] MEDS: MEROPENEM 0.5 GM in 0.9 % SODIUM CHLORIDE 50 ML IV SCH ×2 (08:07→21:45)
[2020-06-20] MEDS: HEPARIN 5,000 UNIT/ML VIAL SQ SCH ×2 (08:07→21:46)
[2020-06-20] MEDS: LEVOTHYROXINE 100 MCG VIAL IV SCH (08:08)
[2020-06-20] MEDS: CHLORHEXIDINE GLUCONATE 1 ML ORAL.SOL SWABMOUTH SCH ×2 (08:09→21:46)
[2020-06-20 08:34] LABS: Prealbumin 7.8 mg/dL (20.0-40.0)
[2020-06-20] MEDS: IPRATROPIUM/ALBUTEROL 3 ML AMPUL.NEB NEB SCH ×2 (08:38→22:01)
[2020-06-20] MEDS: BUDESONIDE 0.5 MG/2 ML AMPUL.NEB NEB SCH ×2 (08:38→22:01)
[2020-06-20] MEDS ORDERED: SODIUM BICARBONATE VIAL 150 MEQ in DEXTROSE 5% IN WATER 850 ML IV SCH (09:00)
--- NOTE | 2020-06-20 10:02 | General Surgery Progress Note ---
SUBJECTIVE Subjective Patient information: Note initiated : 06/20/20 at 9:59 am Service Date, if different from initiated Date: [] Patient: Anita Casas 69 y/o F admitted on 06/12/20 for Fall, Low Abd Pain. Chief Complaint: [] Principal diagnosis: Small bowel obstruction with perforation Interval history: Postop day #8, events over the weekend noted, patient extubated on Saturday, continues with elevated white blood cell count and mild fevers. Antibiotics were changed, CT scan abdomen pelvis reviewed and appears negative for intra-abdominal process at this time. Continued ileus although patient has had a large bowel movement last night. Constitutional Vitals: Vital Signs Temp Pulse Resp BP Pulse Ox 98.3 F 99 H 41 H 114/57 100 06/20/20 07:00 06/20/20 09:03 06/20/20 09:03 06/20/20 09:00 06/20/20 09:03 Period Temp Pulse Resp BP Sys/Santizo Pulse Ox Last 24 Hr 97.4 F-99.1 F 91-110 20-50 89-146/45-101 97-100 Intake and Output 06/19/20 06/20/20 06/20/20 21:59 05:59 13:59 Intake Total 3480.1417 273 150 Output Total 717 925 173 Balance 2763.1417 -652 -23 Weight 249 lb 4.8 oz Intake & Output: Intake & Output 06/19/20 06/20/20 06/20/20 21:59 05:59 13:59 Intake Total 3480.1417 273 150 Output Total 717 925 173 Balance 2763.1417 -652 -23 Weight 249 lb 4.8 oz Intake: IV 3394.1417 273 150 Calcium Gluconate 10 Meq 2078.1417 Magnesium Sulfate 32.48 Meq Sodium Chloride 20 Meq Potassium Chloride 40 Meq Potassium Phosphate 60 Meq Infuvite Adult 10 ml In Clinimix 5%-20% Solution 2,000 ml @ 80 mls/hr IV Q24H [facility] Rx#: [id number] Dextrose 5%-1/2Ns IV Solution 1 481 108 ,000 ml @ 20 mls/hr IV .Q24H [facility] Rx#:[id number] Merrem 0.5 gm In Sodium 50 50 Chloride 0.9% 50 ml @ 100 mls/ hr IV Q12H [facility] Rx#:[id number] Potassium Chloride 40 Meq In 520 Dextrose 5% in Water 500 ml @ 130 mls/hr IV ONCE ONE Rx#: [id number] Tube Feeding 86 0 0 Output: Gastric Drainage 175 525 Right Nare 175 525 Urine Catheter Amount 542 400 173 Other: Urine Appearance Clear Clear Suprapubic Clear Clear Urine Color Bright Yellow Bright Yellow Light Cande Suprapubic Bright Yellow Light Cande Urine Odor Normal Normal Stool Size Small Small Stool Color Brown Brown Stool Consistency Liquid Cecile Cecile # Bowel Movements 1 # of times incontinent of 1 Bowels General appearance: no acute distress Exam: Patient responding to questions, still somewhat confused although more conversational at this time GI/Abdominal GI/Abdominal exam: Present soft; Absent distended and hernia Additional comments: Midline incision is clean dry and intact A/P Narrative A/P Narrative: Postop day #8, extubated now. Was having high residuals over the weekend. Recommend boost shakes as needed throughout the day. Resume tube feeds at 20 cc an hour and advance as tolerated to goal. Would hold for residuals greater than 500 cc. May need central line removed if white blood cell count continues to be elevated. Time Spent With Patient Time: Total time spent is greater than 50% in coordination of care (as documented) at patient's floor/unit and/or counseling patient:
[2020-06-20] MEDS: morphine 2 MG/ML VIAL IV PRN ×2 (12:17→16:16)
[2020-06-20] MEDS ORDERED: [UNRECOGNIZED DRUG - OTHER] IV SCH (14:00)
[2020-06-20] MEDS ORDERED: MAGNESIUM SULFATE IV SCH (14:00)
[2020-06-20] MEDS ORDERED: CALCIUM GLUCONATE IV SCH (14:00)
[2020-06-20] MEDS ORDERED: POTASSIUM CHLORIDE IV SCH (14:00)
[2020-06-20] MEDS ORDERED: FAT EMULSION 20% 250 ML IV SCH (16:00)
--- NOTE | 2020-06-20 16:08 | Internal Med Progress Note ---
SUBJECTIVE Subjective Patient information: Note initiated : 06/20/20 at 4:05 pm Service Date, if different from initiated Date: [] Patient: Anita Casas 69 y/o F admitted on 06/12/20 for Fall, Low Abd Pain. Chief Complaint: [] Principal diagnosis: Small bowel obstruction with perforation Interval history: 06/12 Presents to the ED with fall and lower abdominal pain. She says she was doing relatively well until around the time she fell became very weak complained of abdominal pain bloating. She had some vomiting. She takes morphine for chronic pain took that prior. Complaint feeling her legs being weak and typically is a walker. Is generalized weakness. But does not complain of any chest pain. She has chronic cough and shortness of breath and is on oxygen. But no change. Abdominal pain is diffuse all over crampy and sharp. Initial labs are unremarkable. Work-up in the ED revealed how appear to be a small bowel obstruction. Surgeon was contacted. Patient is fairly unremarkable overnight but then became unresponsive on the floor and with the systolic blood pressure in the 60s. She was bolused with 1250 cc which brought her blood pressure back up however she started dipping again was put on Levophed another liter 1500 cc given. Then we lost IV access and a central line was placed. She is awake and answering questions though somewhat lethargic. 3 Patient did not show much improvement overnight. Urine output remains poor. Renal function slightly worse. She woke up last night being off sedation and was able to interact with reimbursement representative but because of pulling at lines and agitation sedation was placed back on and then removed this morning. We will continue to hold and attempt weaning trial. Still requiring vasopressors, have been able to titrate down some overnight. Spent some time with her son the other day discussing her current state of health and the guarded prognosis. He seemed to understand. No bowel movement per nursing. Unable to gather review of systems given intubation status. *I talked with her son Angus over the phone regarding her current critical state. After some time on the phone it was decided to change her CODE STATUS to DO NOT RESUSCITATE, with the caveat of continuing aggressive measures as are currently being undertaken. Continue mechanical ventilation. But if her situation declines or she has a cardiac event we will likely transition to c omfort focus. 3/ Good urine output last night. Creatinine a little bit worse likely has not peaked from probable ATN. No other significant changes. 06/15 No sedation overnight other than 0.5 mg IV Dilaudid x2. She responds to touch and sternal rub partially opening her eyes. Has been off sedation since 06/13 but has had intermittent fentanyl or dilaudid. He was on tube feedings yesterday however she started having high residuals and increased NG output to that was on hold. Leukocytosis resolved. Renal function slightly improved. 06/16 Patient was off propofol most of yesterday, with some spontaneous movement but not to command or seemingly purposeful. Became tachypneic and started overriding the vent about 1030 last night, required bagging, eventually Precedex, then propofol were resumed with calm the patient. Was on Levophed because of hypotension associated with propofol. This morning propofol again weaned down. Treated with IV acetaminophen as well as hydromorphone, which seemed to relax the patient. This afternoon, nodding yes or no to questions, interacting to some extent with her family. Had 40-minute family conference with the patient's son and daughter. We will continue to provide aggressive care, CODE STATUS remains DO NOT RESUSCITATE. 06/17 Patient continues to arouse, follow instructions. Tolerated spontaneous breathing trial for about an hour today, then became a little tachypneic and return to assist control. She is able to open her eyes nod or shake her head yes or no, moves extremities to command. Remains on 30% FiO2 with good oxygenation, ventilating easily with good pressures. Size 7 endotracheal tube may be contributing to her fatigue with prolonged SBT. Trial of clamping NG tube overnight, but still having significant output. Remains on low-dose norepinephrine while lightly sedated with propofol. Platelets slightly improved to 117K, creatinine down to 3.2 (3.5 yesterday). 06/18 Patient was extubated early afternoon yesterday. Was on BiPAP for little bit for work of breathing in the evening, but is done well since. Is not requiring any supplemental oxygen this morning. Awake and alert. Labs show white count up to 24,000. She has had no fever. Started on TPN yesterday afternoon. Still with significant NG tube output after its unclamped. Did have bowel movement yesterday, was loose but not watery. 06/19 Patient more talkative today. Agrees to work with physical therapy. Did not have any significant NG output after clamping, has been started on trickle tube feeds. Had bowel movement yesterday that was loose but not watery, 1 on reimbursement representative described as linda. No watery/greenish BMs. Chest x-ray yesterday was clear, abdominal film with normal bowel gas patterns. White count remains 24,000. 06/20 Patient became tachypneic overnight, rates up into the 40s. ABG showed pH 7.37 with PCO2 24 consistent with respiratory compensation of metabolic acidosis. Bicarbonate decreased this morning on labs. Nephrology is started bicarbonate drip. White count remains at 24,000. Had BM last evening. Starting to trickle in tube feeds again. Pertinent ROS: Not obtainable due to the patient's tachypnea Constitutional Vitals: Vital Signs Temp Pulse Resp BP Pulse Ox 97.8 F 104 H 51 H 109/68 99 06/20/20 12:01 06/20/20 15:48 06/20/20 15:48 06/20/20 15:01 06/20/20 15:48 Period Temp Pulse Resp BP Sys/Santizo Pulse Ox Last 24 Hr 97.4 F-98.3 F 42-110 23-56 89-146/45-96 95-100 Intake and Output 06/20/20 06/20/20 06/20/20 05:59 13:59 21:59 Intake Total 273 275 93 Output Total 925 483 160 Balance -652 - -67 Weight 249 lb 4.8 oz Patient Weight 06/21/20 05:59 Weight 249 lb 4.8 oz GENERAL: Tachypneic, appears mildly uncomfortable RESPIRATORY: Tachypneic, occasional upper airway associated wheeze CARDIOVASCULAR: Mildly tachycardic ABDOMEN: Nondistended, soft EXTREMITIES: Trace lower extremity edema NEURO: Awake, alert, any conversation is limited by dyspnea Intake & Output: Intake & Output 06/20/20 06/20/20 06/20/20 05:59 13:59 21:59 Intake Total 273 275 93 Output Total 925 483 160 Balance -652 -208 -67 Weight 249 lb 4.8 oz Intake: IV 273 250 Dextrose 5%-1/2Ns IV Solution 1 108 ,000 ml @ 20 mls/hr IV .Q24H [facility] Rx#:[id number] Merrem 0.5 gm In Sodium 50 Chloride 0.9% 50 ml @ 100 mls/ hr IV Q12H [facility] Rx#:[id number] Tube Feeding 0 25 93 Output: Gastric Drainage 525 Right Nare 525 Urine Catheter Amount 400 483 160 Other: Urine Appearance Clear Sediment Sediment Suprapubic Clear Urine Color Bright Yellow Light Cande Light Cande Suprapubic Light Cande Urine Odor Normal Stool Size Small Stool Color Brown Stool Consistency Linda # of times incontinent of 1 Bowels OBJ DATA Labs CBC & Chem 7: 06/20/20 05:20 06/20/20 05:20 Labs: Abnormal Lab Results 06/20/20 06/20/20 06/19/20 05:20 05:20 12:22 WBC 24.2 H RBC 3.26 L Hgb 9.8 L Hct 29.8 L RDW 14.6 H Plt Count MPV 11.7 H Neut % (Auto) 86.6 H Lymph % (Auto) 6.9 L Lymph # (Auto) Fajardo # (Auto) 1.09 H Eos # (Auto) Absolute Neutrophils 20.94 H Potassium Chloride 113 H Carbon Dioxide 16 L BUN 61 H Creatinine 2.9 H Glucose 142 H Calcium 7.8 L Phosphorus GGT 47 H AST Lactate Dehydrogenase 341 H Total Protein 5.4 L Albumin 2.2 L Albumin/Globulin Ratio 0.7 L Prealbumin 7.8 L Triglycerides 161 H Urine Protein 30 A Amorphous Crystals Few A Hyaline Casts 3 H Urine Mucus Few A 06/19/20 06/19/20 06/18/20 04:52 04:52 05:14 WBC 24.2 H RBC 3.25 L Hgb 9.7 L Hct 29.8 L RDW Plt Count MPV 11.8 H Neut % (Auto) 86.2 H Lymph % (Auto) 7.2 L Lymph # (Auto) Fajardo # (Auto) Eos # (Auto) 0.76 H Absolute Neutrophils 20.86 H Potassium 3.2 L 3.1 L Chloride 111 H 109 H Carbon Dioxide 20 L 19 L BUN 59 H 58 H Creatinine 2.9 H 2.8 H Glucose 142 H 119 H Calcium 7.8 L 8.0 L Phosphorus 2.4 L GGT AST 34 H Lactate Dehydrogenase 293 H 314 H Total Protein 5.0 L 5.2 L Albumin 2.0 L 2.1 L Albumin/Globulin Ratio 0.7 L 0.7 L Prealbumin Triglycerides 185 H 189 H Urine Protein Amorphous Crystals Hyaline Casts Urine Mucus 06/18/20 05:14 WBC 24.5 H RBC 3.45 L Hgb 10.4 L Hct 31.8 L RDW Plt Count 135 L MPV 11.2 H Neut % (Auto) 88.8 H Lymph % (Auto) 5.4 L Lymph # (Auto) 1.33 L Fajardo # (Auto) Eos # (Auto) Absolute Neutrophils 21.69 H Potassium Chloride Carbon Dioxide BUN Creatinine Glucose Calcium Phosphorus GGT AST Lactate Dehydrogenase Total Protein Albumin Albumin/Globulin Ratio Prealbumin Triglycerides Urine Protein Amorphous Crystals Hyaline Casts Urine Mucus Meds: Medications Albuterol Sulfate (Albuterol Sulfate 200 Puff Inhaler) 2 puff IH Q4-6HP PRN PRN Reason: shortness of breath or wheezin Albuterol/Ipratropium (Ipratropium/Albuterol 3 Ml Ampul.Neb) 3 ml NEB Q12H [facility] Last Admin: 06/20/20 08:38 Dose: 3 ml Documented by: Albuterol/Ipratropium (Ipratropium/Albuterol 3 Ml Ampul.Neb) 3 ml NEB Q4HP PRN PRN Reason: Shortness Of Breath Last Admin: 06/20/20 02:17 Dose: 3 ml Documented by: Budesonide (Budesonide 0.5 Mg/2 Ml Ampul.Neb) 0.5 mg NEB Q12 [facility] Last Admin: 06/20/20 08:38 Dose: 0.5 mg Documented by: Chlorhexidine Gluconate (Chlorhexidine Gluconate 1 Ml Oral.Ashley) 15 ml SWABMOUTH BID [facility] Last Admin: 06/20/20 08:09 Dose: 15 ml Documented by: Dextrose (Dextrose 50% 50 Ml Vial) 0 ml IV UD PRN PRN Reason: Hypoglycemia Diagnostic Test (Pha) (Accu-Chek 1 Each Strip) 1 each FS Q6 [facility] Last Admin: 06/20/20 11:26 Dose: 1 each Documented by: Diphenhydramine HCl (Diphenhydramine 12.5 Mg/5 Ml Oral.Ashley) 25 mg PT HSP PRN PRN Reason: insomnia Last Admin: 06/20/20 00:40 Dose: 25 mg Documented by: Famotidine (Famotidine/Pf 20 Mg/2 Ml Vial) 20 mg IV QHS [facility] Last Admin: 06/19/20 20:52 Dose: 20 mg Documented by: Glucose (Dextrose 31 Gm Oral.Susp) 15 gm PO PRN PRN PRN Reason: Hypoglycemia Heparin Sodium (Porcine) (Heparin 5,000 Unit/Ml Vial) 5,000 unit SQ Q12 [facility] Last Admin: 06/20/20 08:07 Dose: 5,000 unit Documented by: Sodium Chloride (Sodium Chloride 0.9%) 250 mls @ 20 mls/hr IV .[id number] [facility] Last Admin: 06/20/20 15:18 Dose: Not Given Documented by: Acetaminophen (Ofirmev) 650 mg in 65 mls @ 130 mls/hr IV Q6HP PRN; Protocol PRN Reason: Pain Last Infusion: 06/20/20 05:40 Dose: Infused Documented by: Meropenem 0.5 gm/ Sodium (Chloride) 50 mls @ 100 mls/hr IV Q12H [facility]; Protocol Last Infusion: 06/20/20 08:54 Dose: Infused Documented by: Norepinephrine Bitartrate 16 (mg/ Sodium Chloride) 250 mls @ 9.375 mls/hr IV Q24HP PRN; Protocol PRN Reason: TITRATE TO KEEP MAP > 65 Dextrose/Sodium Chloride (Dextrose 5%-1/2ns Iv Solution) 1,000 mls @ 20 mls/hr IV .Q24H [facility] Last Infusion: 06/20/20 01:25 Dose: 20 mls/hr Documented by: Metronidazole (Flagyl) 500 mg in 100 mls @ 100 mls/hr IV Q6H [facility]; Protocol Last Infusion: 06/20/20 12:30 Dose: Infused Documented by: Sodium Bicarbonate 150 meq/ (Dextrose) 1,000 mls @ 50 mls/hr IV Q20H [facility] Last Admin: 06/20/20 09:29 Dose: 50 mls/hr Documented by: Calcium Gluconate 10 meq/Magnesium Sulfate 16.24 meq/Potassium Chloride 40 meq/Potassium Phosphate 40 meq/Multivitamins/Minerals 10 ml/Amino Acids 2,064.5962 mls @ 80 mls/hr IV Q24H [facility] Last Admin: 06/20/20 14:14 Dose: 80 mls/hr Documented by: Insulin Human Lispro (Insulin Lispro 1 Unit/0.01 Ml Unit) 0 unit SQ Q6H [facility]; Protocol Last Admin: 06/20/20 11:26 Dose: 1 units Documented by: Levothyroxine Sodium (Levothyroxine 100 Mcg Vial) 100 mcg IV QAMAC [facility] Last Admin: 06/20/20 08:08 Dose: 100 mcg Documented by: Metoclopramide HCl (Metoclopramide 10 Mg/2 Ml Vial) 10 mg IV Q6H [facility] Last Admin: 06/20/20 11:26 Dose: 10 mg Documented by: Midazolam HCl (Midazolam 2 Mg/2 Ml Vial) 2 mg IV Q2HP PRN PRN Reason: Agitation Morphine Sulfate (Morphine 2 Mg/Ml Vial) 2 mg IV Q2HP PRN; Protocol PRN Reason: Per Pain Protocol Last Admin: 06/20/20 12:17 Dose: 2 mg Documented by: Naloxone HCl (Naloxone Hcl 0.4 Mg/Ml Vial) 0.1 mg IV Q2MIN PRN PRN Reason: Opiate Reversal Sodium Chloride (0.9 % Sodium Chloride 10 Ml Syringe) 10 ml IV Q12 [facility] Last Admin: 06/20/20 08:09 Dose: 10 ml Documented by: Sodium Chloride (0.9 % Sodium Chloride 10 Ml Syringe) 10 ml IV Q8 [facility] Last Admin: 06/20/20 14:59 Dose: 10 ml Documented by: Sodium Chloride (0.9 % Sodium Chloride 10 Ml Syringe) 10 ml IV UD PRN PRN Reason: FLUSH A/P Narrative A/P Narrative: *SBO w/incarcerated hernia & small perforation: s/p Ex-lap washout SB resection (06/12), POD#7 -high-risk mortality state *Septic Shock: 2/2 above -vasopressors off (06/13), leukocytosis resolved -WBC increased 06/17 and 06/18, no apparent source -requiring some pressor support while on sedation, now off on 06/18 after extubation -Proteus mirabilis on urine culture, though may be colonization, will be adequately treated with piperacillin/tazobactam -Blood cultures from admission no growth final *Leukocytosis: White count is increased from normal 06/16 to 15,000 06/17 up to 24,000 06/18, 06/19, 06/20 -Unclear etiology -Proteus in urine should be adequately treated with piperacillin/tazobactam -Chest x-ray with atelectasis, no new infiltrate -Looser stools, but not watery, though consider C. difficile if stools worsen -Repeat urine analysis without evidence of infection -May be secondary to central line *Remained intubated post-op: failed weaning trial for several daysresolved 06/17 with extubation -on 06/15 had good trial but not awake enough to follow any commands and no purposeful movements -more awake on 06/17, tolerated 1 hr SBT -Extubated early afternoon 06/17 *Encephalopathy: Suspect multifactorial from sepsis, critical illness. Pain may also be contributing. Starting to improve somewhat afternoon 06/16 -CT of brain without acute findings -Improving late 06/16 and 06/17, continues to improve *JUJU on CKD IV with Oliguria: was on HD in past now off, follows with Dr. Mcclain -suspect ATN -UOP improved -Cr continues to slowly improve, now stable at 2.9 on 06/20 *Metabolic Acidosis: 2/2 above, initially improved, now worsening with serum bicarbonate 16 -Suspect tachypnea that is respiratory compensation of worsening metabolic acidosis *Anemia, chronic: *Morbid obesity: *COPD (2L O2@home): Now on room air as of 06/18 *Hypothyroidism: TSH elevated, on IV levothyroxine while n.p.o. *Anxiety: *Suprapubic catheter chronic, neurogenic bladder: -Medrano changed this admit -Urine culture with >100K CFU/mL Proteus mirabilis, unclear if infection versus colonization *GERD: *Atelectasis *High mortality risk: guarded prognosis, though making slow progress over the past few days as of 06/19 Plan: * Bicarbonate drip as per nephrology * Follow ABG/VBG * BiPAP support as needed for work of breathing * Follow white count, reculture if fever * If able to wean off TPN, discontinue central line * If still needs central access, place PICC line then DC triple-lumen * If watery stool, send C. difficile * Continue to titrate tube feeds as tolerated * Continue TPN, was continued yesterday after not progressing with tube feeds * Continue IV fluid while not taking p.o. * Continue to monitor UOP * Nephrology following * Continue IV meropenem/metronidazole (changed to this on 06/18) * PT/OT -ppx: heparin/pepcid -CODE STATUS: DNR
[2020-06-20 16:34] LABS: ABG Methemoglobin 0.3 % (0.4-1.5); Total Hemoglobin 9.9 gm/Dl (13.5-16.5); VBG Base Excess -9 (-2-3); VBG HCO3 16.5 mmol/L; VBG Oxygen Saturation 76.3 %; VBG PCO2 35.8 mmHg; VBG PH 7.28 U; VBG PO2 48.5 mmHg; VBG Total CO2 17.6 mmol/L
--- NOTE | 2020-06-20 16:57 | XRay Report ---
CLINICAL INFORMATION: Significant Tachypnea COMPARISON: 06/18/2020 FINDINGS: Heart size, mediastinum and pulmonary vessels are normal. Right IJ central line tip overlies the distal right internal jugular vein. NG tube tube tip is in the gastric fundus. There is minor bibasilar atelectasis. Small right pleural effusion noted IMPRESSION: Minor bibasilar atelectasis small right pleural effusion Interpreted and Authenticated by: Jeremías Bernal 06/20/20
[2020-06-20] MEDS ORDERED: SODIUM BICARBONATE 50 MEQ/50 ML VIAL IV ONE ×2 (17:36→18:00)
[2020-06-20] MEDS: FAMOTIDINE/PF 20 MG/2 ML VIAL IV SCH (21:46)
[2020-06-20] MEDS: 0.9 % SODIUM CHLORIDE 10 ML SYRINGE IV PRN (23:50)
[2020-06-21] MEDS ORDERED: NOREPINEPHRINE BITARTRATE 8 MG in 0.9 % SODIUM CHLORIDE 242 ML IV SCH ×2 (01:00→15:00)
[2020-06-21] MEDS ORDERED: 0.9 % SODIUM CHLORIDE 1,000 ML IV ONE (01:43)
[2020-06-21] MEDS ORDERED: ALBUMIN HUMAN 25 GM/100 ML BAG IV ONE ×2 (01:44→01:45)
[2020-06-21] MEDS ORDERED: NOREPINEPHRINE BITARTRATE 8 MG in 0.9 % SODIUM CHLORIDE 242 ML IV PRN (01:44)
[2020-06-21] MEDS ORDERED: ALBUMIN HUMAN 50 GM/200 ML BAG IV ONE (01:50)
--- NOTE | 2020-06-21 01:58 | General Surgery Progress Note ---
SUBJECTIVE Subjective Patient information: Note initiated : 06/21/20 at 1:50 am Service Date, if different from initiated Date: [] Patient: Anita Casas 69 y/o F admitted on 06/12/20 for Fall, Low Abd Pain. Chief Complaint: [] Principal diagnosis: Small bowel obstruction with perforation Interval history: 69-year-old female who is status post small bowel obstruction with perforation and peritonitis. She is status post small bowel resection with anastomosis. She became progressively tachypneic and acidotic with drop in blood pressure and increased heart rate. It was noted that she was having feculent material from her incision. Her provider is not available and I was asked to evaluate the patient. The patient is in dire straits and was intubated by the emergency room staff. I discussed her situation with her son and obtain permission for emergency laparotomy with washout. He is advised that she will have an ostomy temporarily. Constitutional Vitals: Vital Signs Temp Pulse Resp BP Pulse Ox 97.5 F 54 L 55 H 116/64 95 06/21/20 00:00 06/21/20 00:00 06/21/20 00:00 06/21/20 00:00 06/21/20 00:00 Period Temp Pulse Resp BP Sys/Santizo Pulse Ox Last 24 Hr 97.5 F-100.3 F 42-110 24-56 85-128/46-96 87-100 Intake and Output 06/20/20 06/20/20 06/21/20 13:59 21:59 05:59 Intake Total 275 2692.2326 1172 Output Total 483 502 115 Balance -208 2190.2326 1057 Weight 249 lb 4.8 oz 258 lb 3.2 oz Patient Weight 06/21/20 05:59 Weight 258 lb 3.2 oz Intake & Output: Intake & Output 06/20/20 06/20/20 06/21/20 13:59 21:59 05:59 Intake Total 275 2692.2326 1172 Output Total 483 502 115 Balance -208 2190.2326 1057 Weight 249 lb 4.8 oz 258 lb 3.2 oz Intake: IV 250 2514.2326 852 Calcium Gluconate 10 Meq 2088.2326 Magnesium Sulfate 16.24 Meq Potassium Chloride 60 Meq Potassium Phosphate 100 Meq Infuvite Adult 10 ml In Clinimix 5%-20% Solution 2,000 ml @ 80 mls/hr IV Q24H [facility] Rx#: [id number] Dextrose 5%-1/2Ns IV Solution 1 326 ,000 ml @ 20 mls/hr IV .Q24H [facility] Rx#:[id number] Merrem 0.5 gm In Sodium 50 50 Chloride 0.9% 50 ml @ 100 mls/ hr IV Q12H [facility] Rx#:[id number] Sodium Bicarbonate Vial 150 Meq 702 In Dextrose 5% in Water 850 ml @ 50 mls/hr IV Q20H [facility] Rx#: [id number] Tube Feeding 25 178 20 IV - Manual Only 300 Output: Urine Catheter Amount 483 502 115 Other: Urine Appearance Sediment Clear Clear Suprapubic Clear Sediment Urine Color Light Cande Pale Dark Yellow Suprapubic Light Cande Light Cande Urine Odor Normal Normal Stool Size Small Small Stool Color Brown Brown Stool Consistency Cecile Loose Neck Neck exam: Present full ROM, normal inspection and tenderness Respiratory Respiratory exam: Present accessory muscle use, rales, rhonchi and stridor Cardiovascular Cardiovascular exam: Present +S1, +S2 and tachycardia; Absent JVD GI/Abdominal GI/Abdominal exam: Present distended, firm and tenderness Additional comments: Patient has feculent material draining from her midline incision Extremities Exam Extremities exam: Present normal capillary refill Neurological Exam Additional comments: She is clinically obtunded and cannot answer questions. A/P Assessment and plan (1) Anastomotic leak of intestine: Status: Acute (2) Fever with leukocytosis and leukocyte count greater than or equal to 20,000: Status: Acute (3) Metabolic acidosis: Status: Acute (4) Acute renal failure with acute tubular necrosis superimposed on stage 4 chronic kidney disease: Status: Acute (5) Peritonitis (acute) generalized: Status: Acute Narrative A/P Narrative: Patient will be emergently intubated Permission obtained for emergency laparotomy from her son Albumin 25 g IV x2 Normal saline 1000 cc an open rate Patient will be taken to the operating room as soon as possible for fecal diversion and peritoneal washout and drainage Condition is unstable and critical Time Spent With Patient Time: Total time spent is greater than 50% in coordination of care (as documented) at patient's floor/unit and/or counseling patient:
[2020-06-21] MEDS ORDERED: fentaNYL 100 MCG/2 ML VIAL IV ONE (02:12)
[2020-06-21] MEDS ORDERED: PHENYLEPHRINE 10 MG/ML VIAL ONE ×2 (02:12→04:41)
[2020-06-21] MEDS ORDERED: ROCURONIUM 10 MG/ML ML IV ONE ×2 (02:12→06:55)
[2020-06-21] MEDS ORDERED: MIDAZOLAM HCL 10 MG/2 ML VIAL ONE (02:12)
--- NOTE | 2020-06-21 02:21 | XRay Report ---
CLINICAL INFORMATION: vented COMPARISON: 06/20/2020 FINDINGS: Endotracheal tube is satisfactory position 3.8 cm above the jonn. NG tube remains in stable satisfactory position. Right IJ line tip overlies the right internal jugular vein near the brachycephalic junction. Heart size, mediastinum and pulmonary vessels are unremarkable. Moderate bibasilar subsegmental airspace disease has progressed and likely represents atelectasis. No effusion IMPRESSION: Endotracheal tube in satisfactory position. Moderate bibasilar airspace disease has progressed and is most compatible with subsegmental atelectasis. Developing aspiration not totally excluded Interpreted and Authenticated by: Jeremías Bernal 06/21/20
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
--- NOTE | 2020-06-21 04:38 | Brief Operative Note ---
Brief Operative Note Date of procedure: 06/21/20 Pre-op diagnosis: small bowel anastomotic leak with peritonitis Post-op diagnosis: other (extensive small bowel necrosis with perforation and total intraperitoneal peritonitis;multiple peritoneal abscesses;large subcutaneous abscess of subcutaneous abdominal wall with large fecal volume) Procedure: exploratory laparotomy;drainage of large subcutaneous abscess involving entire incision ;drainage of multiple intra-abdominal abscesses; near- total small bowel resection Grafts/Implants: No Anesthesia: GETA Findings: as noted above Complications: other (sepsis and shock through out procedure) Surgeon: Florence Garcia Estimated blood loss (cc): 50 Specimens Removed/Pathology: other (large segment of small bowel) Condition: other (patient will be made comfort care after she is seen by her family ) Disposition: ICU
[2020-06-21] MEDS ORDERED: ONDANSETRON 4 MG/2 ML VIAL ONE (04:41)
[2020-06-21] MEDS ORDERED: DEXTROSE 50% 50 ML VIAL IV PRN (04:41)
[2020-06-21] MEDS ORDERED: DEXTROSE 31 GM ORAL.SUSP PO PRN (04:41)
[2020-06-21] MEDS ORDERED: IPRATROPIUM/ALBUTEROL 3 ML AMPUL.NEB NEB PRN (04:41)
[2020-06-21] MEDS ORDERED: 0.9 % SODIUM CHLORIDE 10 ML SYRINGE IV PRN (04:41)
[2020-06-21] MEDS ORDERED: PROPOFOL 200 MG/20 ML VIAL IV ONE (04:41)
[2020-06-21] MEDS ORDERED: NALOXONE HCL 0.4 MG/ML VIAL IV PRN (04:41)
[2020-06-21] MEDS ORDERED: ACETAMINOPHEN 650 MG/65 ML BAG IV PRN (04:41)
[2020-06-21] MEDS ORDERED: morphine 2 MG/ML VIAL IV PRN (04:41)
[2020-06-21] MEDS ORDERED: METOCLOPRAMIDE 10 MG/2 ML VIAL IV SCH (06:00)
[2020-06-21] MEDS ORDERED: metroNIDAZOLE 500 MG/100 ML BAG IV SCH (06:00)
[2020-06-21] MEDS ORDERED: INSULIN LISPRO 1 UNIT/0.01 ML UNIT SQ SCH (06:00)
[2020-06-21] MEDS ORDERED: MIDAZOLAM 5 MG/5 ML VIAL IV ONE (06:55)
[2020-06-21] MEDS ORDERED: SODIUM BICARBONATE VIAL 150 MEQ in DEXTROSE 5% IN WATER 850 ML IV SCH ×2 (07:00)
--- NOTE | 2020-06-21 07:01 | Nephrology Progress Note ---
SUBJECTIVE Subjective Patient information: Note initiated : 06/21/20 at 6:57 am Service Date, if different from initiated Date: [] Patient: Anita Casas 69 y/o F admitted on 06/12/20 for Fall, Low Abd Pain. Chief Complaint: Intubated Principal diagnosis: Small bowel obstruction with perforation Pertinent ROS: Unavailable due to intubation Constitutional Vitals: Vital Signs Temp Pulse Resp BP Pulse Ox 96.9 F L 106 H 16 128/56 100 06/21/20 05:00 06/21/20 06:00 06/21/20 06:00 06/21/20 06:00 06/21/20 06:00 Period Temp Pulse Resp BP Sys/Santizo Pulse Ox Last 24 Hr 96.9 F-100.3 F 42-115 14-56 57-163/40-96 87-100 Intake and Output 06/20/20 06/21/20 06/21/20 21:59 05:59 13:59 Intake Total 2692.2326 2395 0 Output Total 502 1080 Balance 2190.2326 1315 0 Weight 258 lb 3.2 oz Intake & Output: Intake & Output 06/20/20 06/21/20 06/21/20 21:59 05:59 13:59 Intake Total 2692.2326 2395 0 Output Total 502 1080 Balance 2190.2326 1315 0 Weight 258 lb 3.2 oz Intake: IV 2514.2326 2075 Sodium Chloride 0.9% 1,000 ml @ 1000 Wide Open IV BOLUS ONE Rx#: [id number] BUMINATE 50 gm In 200 ml @ 0 200 mls/hr IV .STK-MED ONE Rx#: [id number] Calcium Gluconate 10 Meq 2088.2326 Magnesium Sulfate 16.24 Meq Potassium Chloride 60 Meq Potassium Phosphate 100 Meq Infuvite Adult 10 ml In Clinimix 5%-20% Solution 2,000 ml @ 80 mls/hr IV Q24H [facility] Rx#: [id number] Dextrose 5%-1/2Ns IV Solution 1 326 ,000 ml @ 20 mls/hr IV .Q24H [facility] Rx#:[id number] Merrem 0.5 gm In Sodium 50 Chloride 0.9% 50 ml @ 100 mls/ hr IV Q12H [facility] Rx#:[id number] Levophed 8 mg In Sodium 23 Chloride 0.9% 242 ml @ 10 MCG/ MIN 18.75 mls/hr IV Q14H [facility] Rx #:[id number] Sodium Bicarbonate Vial 150 Meq 702 In Dextrose 5% in Water 850 ml @ 50 mls/hr IV Q20H [facility] Rx#: [id number] Tube Feeding 178 20 0 IV - Manual Only 300 Output: Gastric Drainage 650 Right Nare 650 Urine Catheter Amount 502 430 Other: Urine Appearance Clear Clear Suprapubic Clear Urine Color Pale Pale Suprapubic Dark Yellow Urine Odor Normal Stool Size Small Small Stool Color Brown Brown Stool Consistency Liquid Loose General appearance: morbidly obese and no acute distress Exam: Intubated and sedated Head Head exam: Present atraumatic and normal inspection Respiratory Additional comments: Mechanical ventilation Cardiovascular Cardiovascular exam: Present normal rate and rhythm Additional comments: Suprapubic catheter Neurological Exam Additional comments: Sedated Skin Skin exam: Present pallor A/P Assessment and plan (1) Metabolic acidosis: Status: Acute (2) Acute renal failure with acute tubular necrosis superimposed on stage 4 chronic kidney disease: Assessment and plan: Anita Casas is a 67-year-old female with CKD stage G4/A3 associated with hypertensive nephrosclerosis, neurogenic bladder s/p suprapubic catheter and 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 She had exploratory laparotomy, abdominal washout, small bowel resection for incarcerated incisional hernia with small perforation likely secondary to trauma from her previous fall on 06/12/20. Acute kidney injury, likely acute tubular injury on chronic kidney disease stage G4/A3, present on arrival. Work up: Urinalysis on 06/12/20: Yellow, Clear, pH 8.0, SG 1.018, protein >500, blood 0.03, leukocyte esterase 75. CT Abdomen and Pelvis without contrast on 06/11/20: Marked bilateral renal atrophy compatible with end-stage renal failure stable. CT Chest, Abdomen and Pelvis without contrast on 06/19/20: Postoperative ileus with the greatest dilatation located in the jejunum at the level of the recent anastomosis. Mesenteric edema and small amount of ascites. No abscess is identified. Mild hydronephrosis in right kidney. Atelectasis in both lungs. Progress: Extensive small bowel infarction. Intubated on mechanical ventilation and on IV pressors. Recommendations/Plan: Comfort care recommended. Status: Acute Time Spent With Patient Time: Total time spent is greater than 50% in coordination of care (as documented) at patient's floor/unit and/or counseling patient:
[2020-06-21] MEDS: MIDAZOLAM 2 MG/2 ML VIAL IV PRN ×2 (07:02→12:01)
[2020-06-21] MEDS ORDERED: PROPOFOL 1,000 MG in PREMIX 1 BAG IV PRN (07:45)
[2020-06-21] MEDS ORDERED: BUDESONIDE 0.5 MG/2 ML AMPUL.NEB NEB SCH (09:00)
[2020-06-21] MEDS ORDERED: CHLORHEXIDINE GLUCONATE 1 ML ORAL.SOL SWABMOUTH SCH (09:00)
[2020-06-21] MEDS ORDERED: 0.9 % SODIUM CHLORIDE 10 ML SYRINGE IV SCH (09:00)
[2020-06-21] MEDS ORDERED: IPRATROPIUM/ALBUTEROL 3 ML AMPUL.NEB NEB SCH (09:00)
[2020-06-21] MEDS ORDERED: MEROPENEM 0.5 GM in 0.9 % SODIUM CHLORIDE 50 ML IV SCH (09:00)
[2020-06-21] MEDS: 0.9 % SODIUM CHLORIDE 250 ML IV SCH (09:28)
--- NOTE | 2020-06-21 12:48 | Internal Med Progress Note ---
SUBJECTIVE Subjective Patient information: Note initiated : 06/21/20 at 12:40 pm Service Date, if different from initiated Date: [] Patient: Anita Casas 69 y/o F admitted on 06/12/20 for Fall, Low Abd Pain. Chief Complaint: [] Principal diagnosis: Small bowel obstruction with perforation Interval history: Patient continued to deteriorate over last evening, with tachypnea. She was started on bicarbonate drip yesterday morning for acidosis. About 11 PM last evening she began leaking intestinal contents through her yates rgical incision. She was taken emergently to the OR early this morning for washout. She is found to have extensive gangrene and nonviable bowel of such an extent that it was not a survivable situation. She is returned to the ICU intubated and on pressor support until the family could come to see the patient. This morning, she was extubated to comfort and pressor support was stopped and she . I did discuss the events overnight with her daughter earlier this morning while they are waiting for their family to arrive. Answered what questions I could. Constitutional Vitals: Vital Signs Temp Pulse Resp BP Pulse Ox 96.9 F L 104 H 16 96/48 97 06/21/20 05:00 06/21/20 11:01 06/21/20 11:01 06/21/20 11:01 06/21/20 11:01 Period Temp Pulse Resp BP Sys/Santizo Pulse Ox Last 24 Hr 96.9 F-100.3 F 53-115 14-56 57-163/40-95 87-100 Intake and Output 06/20/20 06/21/20 06/21/20 21:59 05:59 13:59 Intake Total 2692.2326 2395 0 Output Total 502 1080 460 Balance 2190.2326 1315 -460 Weight 258 lb 3.2 oz General: Patient is sedated, intubated, not breathing over the vent Intake & Output: Intake & Output 06/20/20 06/21/20 06/21/20 21:59 05:59 13:59 Intake Total 2692.2326 2395 0 Output Total 502 1080 460 Balance 2190.2326 1315 -460 Weight 258 lb 3.2 oz Intake: IV 2559.5721 0482 Sodium Chloride 0.9% 1,000 ml @ 1000 Wide Open IV BOLUS ONE Rx#: [id number] BUMINATE 50 gm In 200 ml @ 0 200 mls/hr IV .ST-MED ONE Rx#: [id number] Calcium Gluconate 10 Meq 2088.2326 Magnesium Sulfate 16.24 Meq Potassium Chloride 60 Meq Potassium Phosphate 100 Meq Infuvite Adult 10 ml In Clinimix 5%-20% Solution 2,000 ml @ 80 mls/hr IV Q24H [facility] Rx#: [id number] Dextrose 5%-1/2Ns IV Solution 1 326 ,000 ml @ 20 mls/hr IV .Q24H [facility] Rx#:[id number] Merrem 0.5 gm In Sodium 50 Chloride 0.9% 50 ml @ 100 mls/ hr IV Q12H [facility] Rx#:[id number] Levophed 8 mg In Sodium 23 Chloride 0.9% 242 ml @ 10 MCG/ MIN 18.75 mls/hr IV Q14H [facility] Rx #:[id number] Sodium Bicarbonate Vial 150 Meq 702 In Dextrose 5% in Water 850 ml @ 50 mls/hr IV Q20H [facility] Rx#: [id number] Tube Feeding 178 20 0 IV - Manual Only 300 Output: Gastric Drainage 650 Right Nare 650 Urine Catheter Amount 502 430 370 Void Amount 90 Other: Urine Appearance Clear Clear Sediment Suprapubic Clear Clear Urine Color Pale Pale Light Cande Suprapubic Dark Yellow Bright Yellow Urine Odor Normal Stool Size Small Small Stool Color Brown Brown Stool Consistency Liquid Loose OBJ DATA Labs CBC & Chem 7: 06/20/20 05:20 06/20/20 05:20 Labs: Abnormal Lab Results 06/20/20 06/20/20 06/20/20 15:41 05:20 05:20 WBC 24.2 H RBC 3.26 L Hgb 9.8 L Hct 29.8 L RDW 14.6 H MPV 11.7 H Neut % (Auto) 86.6 H Lymph % (Auto) 6.9 L [place] # (Auto) 1.09 H Eos # (Auto) Absolute Neutrophils 20.94 H ABG Methemoglobin 0.3 L VBG Base Excess -9 L Carboxyhemoglobin 3.4 H Total Hemoglobin 9.9 L Potassium Chloride 113 H Carbon Dioxide 16 L BUN 61 H Creatinine 2.9 H Glucose 142 H Calcium 7.8 L GGT 47 H Lactate Dehydrogenase 341 H Total Protein 5.4 L Albumin 2.2 L Albumin/Globulin Ratio 0.7 L Prealbumin 7.8 L Triglycerides 161 H Urine Protein Amorphous Crystals Hyaline Casts Urine Mucus 06/19/20 06/19/20 06/19/20 12:22 04:52 04:52 WBC 24.2 H RBC 3.25 L Hgb 9.7 L Hct 29.8 L RDW MPV 11.8 H Neut % (Auto) 86.2 H Lymph % (Auto) 7.2 L [place] # (Auto) Eos # (Auto) 0.76 H Absolute Neutrophils 20.86 H ABG Methemoglobin VBG Base Excess Carboxyhemoglobin Total Hemoglobin Potassium 3.2 L Chloride 111 H Carbon Dioxide 20 L BUN 59 H Creatinine 2.9 H Glucose 142 H Calcium 7.8 L GGT Lactate Dehydrogenase 293 H Total Protein 5.0 L Albumin 2.0 L Albumin/Globulin Ratio 0.7 L Prealbumin Triglycerides 185 H Urine Protein 30 A Amorphous Crystals Few A Hyaline Casts 3 H Urine Mucus Few A Meds: Medications Albuterol/Ipratropium (Ipratropium/Albuterol 3 Ml Ampul.Neb) 3 ml NEB Q12H [facility] Last Admin: 06/21/20 09:21 Dose: Not Given Documented by: Budesonide (Budesonide 0.5 Mg/2 Ml Ampul.Neb) 0.5 mg NEB Q12 [facility] Last Admin: 06/21/20 09:21 Dose: Not Given Documented by: Acetaminophen (Ofirmev) 650 mg in 65 mls @ 130 mls/hr IV Q6HP PRN; Protocol PRN Reason: Pain Norepinephrine Bitartrate 8 mg (/ Sodium Chloride) 250 mls @ 18.75 mls/hr IV Q14H [facility]; Protocol Propofol 1,000 mg/ Premix 100 mls @ 3.514 mls/hr IV .Q24H PRN; Protocol PRN Reason: Sedation Midazolam HCl (Midazolam 2 Mg/2 Ml Vial) 2 mg IV Q2HP PRN PRN Reason: Agitation Last Admin: 06/21/20 12:01 Dose: 2 mg Documented by: Morphine Sulfate (Morphine 2 Mg/Ml Vial) 2 mg IV Q2HP PRN; Protocol PRN Reason: Per Pain Protocol Last Admin: 06/21/20 12:02 Dose: 2 mg Documented by: Naloxone HCl (Naloxone Hcl 0.4 Mg/Ml Vial) 0.1 mg IV Q2MIN PRN PRN Reason: Opiate Reversal Sodium Chloride (0.9 % Sodium Chloride 10 Ml Syringe) 10 ml IV Q12 [facility] Last Admin: 06/21/20 09:20 Dose: 10 ml Documented by: ABG Interpretation ABG results: 06/20/20 15:41 ABG Methemoglobin 0.3 L VBG pH 7.28 VBG pCO2 35.8 VBG pO2 48.5 VBG HCO3 16.5 VBG Total CO2 17.6 VBG O2 Saturation 76.3 VBG Base Excess -9 L A/P Narrative A/P Narrative: 69-year-old presented, found to have incarcerated ventral hernia with small perforation, status post exploratory laparotomy with resection and anastomosis. Then she was able to be extubated, however continued to decline wi th leukocytosis. CT scan was unremarkable for acute findings. However condition continued to deteriorate, was found to have extensive gangrene upon reexploration, not a survivable condition. Patient was kept intubated and sedated so was family may see her one last time. She has been extubated to comfort this morning.
[2020-06-21] MEDS ORDERED: FAMOTIDINE/PF 20 MG/2 ML VIAL IV SCH (21:00)
--- NOTE | 2020-06-28 14:28 | Operative Note ---
DATE OF OPERATION: 06/21/2020 PREOPERATIVE DIAGNOSES: Small bowel anastomotic leak with peritonitis. POSTOPERATIVE DIAGNOSES: Extensive small bowel necrosis with perforation; total intraperitoneal peritonitis; multiple intraabdominal peritoneal abscesses; large subcutaneous abscess of abdominal wall external to the fascia with a very large fecal volume; total necrosis of small bowel. PROCEDURE: Exploratory laparotomy with drainage of large subcutaneous abscess involving the entire incision; drainage of multiple intraabdominal abscesses; near total small bowel resection. SURGEON: Florence Garcia M.D. FINDINGS: As noted above. COMPLICATIONS: Patient had profound sepsis and shock throughout the procedure. DESCRIPTION OF PROCEDURE: Under general anesthesia, the patient was emergently explored after developing a fecal fistula while in the ICU. The abdominal wall was prepped with Betadine. The old incision was opened. Upon the skin, a very large abscess containing pus and stool was found to occupy the entire subcutaneous space above the fascia. This was irrigated and suctioned. There was necrosis of the fat which was excised. There was stool leaking through the fascia. The fascia sutures were removed, and a large volume of feculent material exited through the opening. Immediately under the fascia, there were three segments of small bowel which had near total necrosis of the bowel wall extending from the mesenteric edge to encompass the total circumference of the bowel. As the bowel was gently , there were multiple abscesses encountered. These were copiously irrigated until all of the bowel had been eviscerated from the peritoneal cavity. There was a very large collection of stool and pus in the pelvis which was irrigated. There were large collections of stool and pus in both gutters. These were irrigated. In discussion with the anesthesiologist, it was apparent that the patient was severely septic and required large volumes of fluid and vasopressors to maintain blood pressure. Inspection of the bowel from the ligament of Treitz to the ileocecal valve showed that there were only about 6 inches of viable bowel, starting at the ligament of Treitz, and all of the bowel extending through to the ileocecal valve had at least twelve skip areas of the total bowel necrosis, including the full thickness of the bowel with the largest segment of necrosis measuring 8 inches. For later discussion, multiple pictures were taken. It was felt that with the profound sepsis that she had that the probability of her surviving was going to be minimal, but I elected to proceed and resect primarily all of her bowel, except for the proximal 6 to 8 inches. Once this was done, the peritoneal cavity was irrigated once more. The fascia was closed and the subcutaneous tissue was packed open with gauze soaked in Betadine. The proximal bowel was brought out through a stoma in the left upper quadrant in the subcostal area, but was not opened. Nasogastric tube had been placed in the stomach and was functional. The colon was inspected and appeared to be viable. A Steri-Drape was placed over the abdominal wall. A binder was placed and the patient was left intubated and transferred to the ICU in critical state. I made a call to the son to inform him of the status of his mother, and we decided that we would try to keep her with some vital signs until the family members could see her. Prognosis for survival is nil. LCS:heather Job ID: [id number] Doc ID: [id number] Florence Garcia M.D.
--- NOTE | 2020-07-05 13:52 | Discharge Summary ---
Discharge Provider Provider Patient information: Note initiated : 07/05/20 at 1:48 pm Service Date, if different from initiated Date: [06/21/20] Patient: Anita Casas 69 y/o F admitted on 06/12/20 for Fall, Low Abd Pain. Chief Complaint: Status post fall with complaint of abdominal pain Date of admission: 06/12/20 06:49 Discharge date: 06/21/20 Primary care physician: eJlani Jones MD Consults: 06/11/20 Consult to Physician [CONS] Stat Comment: Consulting Provider: Jose Moreno Reason For Exam: Physician to Consult Consult to Physician [CONS] Stat Comment: Consulting Provider: Kirby Mcneil Reason For Exam: Physician to Consult 06/14/20 08:00 Consult to Physician [CONS] Routine Comment: Consulting Provider: Jason Mcclain Reason For Exam: Physician to Consult 06/17/20 10:21 Consult to Physician [CONS] Routine Comment: Consulting Provider: [facility] Reason For Exam: Physician to Consult COURSE Hospital Course Hospital course: This is a 69-year-old female who presented with abdominal pain. CT scan was consistent with a incisional hernia along with a partial small bowel obstruction without evidence of perforation. Patient was admitted, wendy gómez clinically she deteriorated and was taken emergently to the operating room for exploratory laparotomy. She is found to have a small perforation along the portion of the bowel that was entering her incisional hernia, she underwent small bowel resection and incisional hernia repair. Postoperatively she remained in critical condition was transferred to the intensive care unit. Postop day #7 she was extubated, was progressing in a good direction however 2 days after being extubated she once again deteriorated, was taken to the operating room for exploratory laparotomy found multiple areas of necrotic bowel on the antimesenteric border which required a complete small bowel resection. Postop discussion was undertaken with family and the hospitalist where the decision was made to withdraw care. Discharge diagnosis: Small bowel necrosis incompatible with life Procedures: Exploratory laparotomy with small bowel resection x2 Time Spent with Patient Time attestation: Total time spent providing and/or coordinating discharge services: Physical Examination Vital Signs Vital signs: Temp Pulse Resp BP Pulse Ox 96.9 F L 104 H 16 96/48 97 06/21/20 05:00 06/21/20 11:01 06/21/20 11:01 06/21/20 11:01 06/21/20 11:01 Discharge Plan Patient/Caregiver Discharge Instructions Prescriptions: No Action (DME) Prevail Undergarnment Belted Qty: 180 RF: 6 montelukast 10 mg tablet 10 mg PO QDAY Qty: 30 RF: 12 levothyroxine 175 mcg capsule 175 mcg PO QDAY RF: 0 colestipol 5 gram packet 5 g PO QDAY Qty: 30 RF: 3 omeprazole 40 mg capsule,delayed release(DR/EC) 40 mg PO QDAY Qty: 30 RF: 11 latex free extension tubing 18 inch 1 appful MISC PRN RF: 0 hydrocodone-acetaminophen 7.5-325 mg tablet 1 tab PO Q4HP PRN (Reason: Pain) RF: 0 sertraline 25 mg tablet 25 mg PO DAILY RF: 0 Incruse Ellipta 62.5 mcg/actuation blister with device 1 inh INHALATION DAILY RF: 0 albuterol sulfate [Ventolin HFA] 90 mcg/actuation HFA aerosol inhaler 2 inh INHALATION Q4HP PRN (Reason: Shortness Of Breath) RF: 0 fluticasone furoate-vilanterol 200-25 mcg/dose Blister With Device 1 inh INHALATION DAILY RF: 0 Follow Up Plan Patient Disposition: Prognosis: Fair Discharge Orders: Discharge Order (Routine); Ordered 06/21/20 Ordered By: Kirby Mcneil Discharge Comment: Personnel from [facility] took body Pending Pending Pending: Diet NPO Diet (NOW) Start Sat Jun 11 2144 Shift Summary 06/20/20 17:14 Shift Summary by Juan Garcia Addendum entered by Juan Garcia R.N. 06/20/20 17:25: Suprapubic catheter drains adequate amount of urine this shift. Original Note: PCU status patient that is A&O x1, drowsy and mildly unresponsive this shift. Demonstrates extreme fatigue r/t significant tachypnea. Patient has been able to maintain sats above 90% on room air this shift but RR has consistently been 40s- 50s. ABG this AM from NOC shift demonstrated Met. Acidosis. Bicarb @ rate of 50 ml/hr started in effort to normal pH of 7.37. CXR performed in later half of shift that showed no significant change from previous CXR of 06/18. VBG performed near time of CXR which resulted in new pH of 7.28 and bicarb level of 16.5. Received neb treatment via RT this late afternoon. Remains exp. wheezy. Tube feed restarted @ 1045 rate or 20 ml/hr. Residual checked around 1600 and output satisfactory @ 175 cc. Goal rate of 55ml. Hypoactive bowel tones, persistent abd tenderness. No BM this shift, but last BM on early previous NOC shift. TPN remains going @ rate of 80 ml/hr and D5 1/2NS @ 20 ml/hr to make MIV rate equal 100 ml/hr. Receiving both Merrem and Flagyl per emar. CVC dressing and caps changed this shift along w/ abd dressing. Pain meds given couple of times this shift per emar, most recently morphine. To receive Reglan Q6H scheduled. Monitor demonstrates ST w/ occasional PVC, BP wnl, mostly afebrile but unable to perform I.S. Bedside report to follow. Initialized on 06/20/20 17:14 - END OF NOTE
== END 2020-06-21 17:55 | disposition expired | DRG 344 ==
LOC: MEDSUR 13:27 → ED 13:27 → MEDSUR 22:23 → ICU 06-12 06:48 → MEDSUR 06-21 16:00
PROVIDERS: ADMIT Surgery; ATTEND Surgery